=== PATIENT | male | born 1975 | race Caucasian/White ===

== ENCOUNTER 2016-10-02 10:13 | Observation (INO) | payer BC ==
[~2016-10-02] VITALS: Ht 190.5 cm; Wt 116.4 kg
[~2016-10-02 10:13] MED LIST: ENAL20TA PO; GEMF600T3 PO; HYG/25 PO; ONDA4TAB46 PO
[2016-10-02] MEDS ORDERED: SODIUM CHLORIDE 0.9% 1000ML 1,000 ML IV STA (10:31)
--- NOTE | 2016-10-02 10:42 | EMERGENCY ROOM VISIT NOTE ---
History Report prepared by Love: Dalton Hernandez Under the Supervision of: Dr. Hermelinda Casey D.O. First contact with patient: 10:19 Chief Complaint: HYPERTENSION Stated Complaint: ELEVATED BP-SENT BY 'S OFFICE History of Present Illness The patient is a 41 year old male who presents to the Emergency Room with complaints of persistent hypertension for the past several days. The patient states that his blood pressure normally runs a little high but has been even higher for several days. The patient has been on Enalapril for about one year. He saw his doctor two days ago and was prescribed chlorthalidone, which he started yesterday. The patient saw his primary doctor again today and was referred to the ED. The patient has had a waxing & waning headache for the past four days, which has been making it difficult to sleep. The headache is described as a pressure sensation, which is unlike any headache he has had before. The patient also described feeling off balance and having trouble focusing. He denies blurry vision, ringing in his ears, any focal weakness or numbness, room-spinning dizziness, nausea, changes in his urinary or bowel habits. He had right-sided chest pain intermittently two days ago that lasted about two hours in total, and he has not had any chest pain since then. He is not a smoker. He denies significant changes in his diet or salt intake. The patient states that hypertension does not normally run in his family. No recent trauma, no change in activity, no recent illness. States he is taking his medications as prescribed. Source of History: patient Onset: several days ago Position: other (cardiovascular) Quality: other (hypertension) Timing: other (persistent) Associated Symptoms: + headache, + chest pain, No nausea, No melena, No hematochezia, No diarrhea, No urinary symptoms, No weakness, No numbness Review of Systems See HPI for pertinent positives & negatives. A total of 10 systems reviewed and were otherwise negative. Past Medical & Surgical Medical Problems: (1) Asthma, Unspecified (2) Calculus Of Kidney (3) Depressive Disorder Nec (4) Diverticulitis Colon (W/O Ment Of Hemorrhage) (5) Migraine Unspecified W/O Intract Mgrn W/O Status Migrainosus (6) Pneumonia, Organism Nos Family History No pertinent family history Social History Smoking Status: Never Smoker Alcohol Use: none Marital Status: single Occupation Status: employed Current/Historical Medications Scheduled Clonidine HCl (Clonidine HCl), 0.2 MG PO BID Enalapril Maleate (Enalapril Maleate), 20 MG PO BID Hydrochlorothiazide (Hctz), 25 MG PO DAILY Allergies Coded Allergies: Tramadol (Verified Allergy, Unknown, HIVES, 04/02/16) Physical Exam Vital Signs Date Time Temp Pulse Resp B/P (MAP) Pulse Ox O2 Delivery O2 Flow Rate FiO2 10/02/16 16:38 89 17 95 10/02/16 16:32 167/111 10/02/16 16:08 85 17 96 10/02/16 16:03 166/116 10/02/16 16:02 85 18 164/118 95 10/02/16 15:52 163/109 10/02/16 15:42 175/131 10/02/16 15:32 178/117 10/02/16 15:28 91 95 10/02/16 15:22 179/129 10/02/16 15:12 171/119 10/02/16 15:02 162/103 10/02/16 14:58 83 97 10/02/16 14:53 85 96 10/02/16 14:52 164/109 10/02/16 14:48 84 97 10/02/16 14:43 83 96 10/02/16 14:42 167/108 10/02/16 14:38 84 96 10/02/16 14:33 83 97 10/02/16 14:32 160/112 10/02/16 14:28 84 96 10/02/16 14:23 89 97 10/02/16 14:18 83 15 94 10/02/16 14:13 84 13 94 10/02/16 14:12 162/114 10/02/16 14:08 83 15 93 10/02/16 14:03 83 16 94 10/02/16 14:02 162/115 10/02/16 13:58 83 19 95 10/02/16 13:53 82 17 96 10/02/16 13:52 165/117 10/02/16 13:48 84 14 96 10/02/16 13:43 84 17 95 10/02/16 13:42 174/126 10/02/16 13:38 86 18 167/120 95 10/02/16 13:33 86 20 97 10/02/16 13:32 242/157 10/02/16 13:23 87 16 96 10/02/16 13:22 209/147 10/02/16 13:13 84 14 97 10/02/16 13:12 205/135 10/02/16 13:05 194/130 10/02/16 13:03 89 16 96 10/02/16 13:02 212/146 10/02/16 12:53 90 15 95 10/02/16 12:43 90 17 95 10/02/16 12:33 91 16 96 10/02/16 12:32 202/141 10/02/16 12:23 93 18 94 10/02/16 12:14 190/134 10/02/16 12:13 97 21 190/134 95 10/02/16 12:09 95 10/02/16 12:08 96 22 95 10/02/16 12:03 93 16 95 10/02/16 12:01 209/141 10/02/16 11:58 93 14 94 10/02/16 11:53 95 17 94 10/02/16 11:48 96 21 95 10/02/16 11:43 95 19 94 10/02/16 11:38 94 17 96 10/02/16 11:36 178/127 10/02/16 10:15 36.7 107 18 204/126 96 Room Air Physical Exam GENERAL: alert, well appearing, well nourished, no distress, non-toxic EYE EXAM: normal conjunctiva, no papilledema on funduscopic exam, normal appearing vasculature OROPHARYNX: no exudate, no erythema, lips, buccal mucosa, and tongue normal and mucous membranes are moist NECK: supple, no nuchal rigidity, no adenopathy, non-tender LUNGS: Clear to auscultation. Normal chest wall mechanics HEART: no murmurs, S1 normal and S2 normal ABDOMEN: abdomen soft, non-tender, normo-active bowel sounds, no masses, no rebound or guarding. BACK: Back is symmetrical on inspection and there is no deformity, no midline tenderness, no CVA tenderness. SKIN: no rashes and no bruising UPPER EXTREMITIES: upper extremities are grossly normal. LOWER EXTREMITIES: No pitting edema. NEURO EXAM: Normal sensorium, cranial nerves II-XII grossly intact, normal speech, no gross weakness of arms, no gross weakness of legs. Gross sensation intact. Medical Decision & Procedures ER Provider Diagnostic Interpretation: Radiology results have been interpreted by the radiologist and reviewed by me. HEAD CT NONCONTRAST CT DOSE: 614.27 mGy.cm HISTORY: Headache. Hypertension. Dizziness. TECHNIQUE: Multiaxial CT images of the head were performed without the use of intravenous contrast. Automated exposure control was utilized for this study. Comparison: Head CT 08/17/2013. Findings: The paranasal sinuses and mastoid air cells are clear. The calvarium and skull base are intact. The ventricles and sulci are within normal limits. There is no mass, hematoma, midline shift, or acute infarct. Impression: No acute intracranial abnormality. Electronically signed by: Kurtis Joyner M.D. 10/02/2016 11:14 AM Dictated Date/Time: 10/02/2016 11:10 AM CHEST ONE VIEW PORTABLE CLINICAL HISTORY: Chest pain, dizziness, lightheadedness., Hypertension. COMPARISON STUDY: 04/02/2016 FINDINGS: The heart remains enlarged. There is persistent superior mediastinal soft tissue prominence. There is no failure. There is no focal pulmonary consolidation. There are no pleural effusions. There are postsurgical changes present within the cervical spine.[ IMPRESSION: 1. Stable mild superior mediastinal widening 2. Stable cardiomegaly 3. No acute findings. Electronically signed by: Smooth Ugalde M.D. 10/02/2016 11:07 AM Dictated Date/Time: 10/02/2016 11:04 AM Laboratory Results 10/02/16 10:40 Red Blood Count 4.48, Mean Corpuscular Volume 94.9, Mean Corpuscular Hemoglobin 33.5, Mean Corpuscular Hemoglobin Concent 35.3, Mean Platelet Volume 9.4, Neutrophils (%) (Auto) 62.0, Lymphocytes (%) (Auto) 30.2, Monocytes (%) (Auto) 6.4, Eosinophils (%) (Auto) 1.2, Basophils (%) (Auto) 0.1, Neutrophils # (Auto) 4.19, Lymphocytes # (Auto) 2.04, Monocytes # (Auto) 0.43, Eosinophils # (Auto) 0.08, Basophils # (Auto) 0.01 Test 10/02/16 10:40 White Blood Count 6.76 K/uL (4.8-10.8) Red Blood Count 4.48 M/uL (4.7-6.1) Hemoglobin 15.0 g/dL (14.0-18.0) Hematocrit 42.5 % (42-52) Mean Corpuscular Volume 94.9 fL (80-100) Mean Corpuscular Hemoglobin 33.5 pg (25-34) Mean Corpuscular Hemoglobin Concent 35.3 g/dl (32-36) Platelet Count 241 K/uL (130-400) Mean Platelet Volume 9.4 fL (7.4-10.4) Neutrophils (%) (Auto) 62.0 % Lymphocytes (%) (Auto) 30.2 % Monocytes (%) (Auto) 6.4 % Eosinophils (%) (Auto) 1.2 % Basophils (%) (Auto) 0.1 % Neutrophils # (Auto) 4.19 K/uL (1.4-6.5) Lymphocytes # (Auto) 2.04 K/uL (1.2-3.4) Monocytes # (Auto) 0.43 K/uL (0.11-0.59) Eosinophils # (Auto) 0.08 K/uL (0-0.5) Basophils # (Auto) 0.01 K/uL (0-0.2) RDW Standard Deviation 45.8 fL (36.4-46.3) RDW Coefficient of Variation 13.2 % (11.5-14.5) Immature Granulocyte % (Auto) 0.1 % Immature Granulocyte # (Auto) 0.01 K/uL (0.00-0.02) Total Bilirubin 0.5 mg/dl (0.2-1) Aspartate Amino Transf (AST/SGOT) 15 U/L (15-37) Alanine Aminotransferase (ALT/SGPT) 30 U/L (12-78) Alkaline Phosphatase 82 U/L (45-117) Troponin I < 0.015 ng/ml (0-0.045) Total Protein 8.5 gm/dl (6.4-8.2) Albumin 4.8 gm/dl (3.4-5.0) Globulin 3.7 gm/dl (2.5-4.0) Albumin/Globulin Ratio 1.3 (0.9-2) Thyroid Stimulating Hormone (TSH) 1.590 uIu/ml (0.300-4.500) Laboratory results per my review. Medications Administered Medications (Trade) Dose Ordered Sig/Corie Route Start Time Stop Time Status Last Admin Dose Admin Sodium Chloride 1,000 ml @ 999 mls/hr Q1H1M STAT IV 10/02/16 10:31 10/02/16 11:31 DC 10/02/16 10:31 999 MLS/HR Acetaminophen (Tylenol Tab) 1,000 mg NOW STAT PO 10/02/16 12:26 10/02/16 12:27 DC 10/02/16 13:04 1,000 MG Labetalol HCl (Normodyne IV) 10 mg NOW STAT IV 10/02/16 12:26 10/02/16 12:27 DC 10/02/16 13:00 10 MG Labetalol HCl (Normodyne IV) 10 mg NOW STAT IV 10/02/16 13:39 10/02/16 13:40 DC 10/02/16 13:47 10 MG Ketorolac Tromethamine (Toradol Inj) 30 mg NOW STAT IV 10/02/16 13:39 10/02/16 13:40 DC 10/02/16 13:46 30 MG Hydralazine HCl (HydrALAZINE INJ) 5 mg NOW STAT IV. 10/02/16 15:36 10/02/16 15:38 DC 10/02/16 16:04 5 MG Fentanyl Citrate (Fentanyl Inj) 50 mcg NOW STAT IV 10/02/16 15:36 10/02/16 15:38 DC 10/02/16 16:01 50 MCG Ketorolac Tromethamine (Toradol Inj) 30 mg NOW STAT IV 10/02/16 16:37 10/02/16 16:48 DC 10/02/16 17:16 30 MG ECG Indication: other (hypertension) Rate (beats per minute): 103 Rhythm: sinus tachycardia Findings: no acute ischemic change, other (normal axis, normal intervals) ED Course 1025: The patient was evaluated in room C9. A complete history and physical exam was performed. 1031: NSS 1000 ml @ 999 mls/hr. 1226: Labetalol HCl 10 mg IV, Tylenol 1000 mg PO. 1230: The patient's pressure is going back up, and he still has a headache. I updated him on the results. 1335: The patient has still has a headache and is still hypertensive, but is not quite as bad as he was before. 1339: Toradol 30 mg IV, Labetalol HCl 10 mg IV. 1517: Checked on the patient. 1536: Fentanyl 50 mcg IV, Hydralazine HCl 5 mg IV. 1605: The patient still has a headache but is getting better. 1615: Discussed the case with Dr. Butts [facility] Hospitalist. The patient will be evaluated. Medical Decision Differential diagnosis: Etiologies such as benign hypertension, hypertensive emergency, cardiovascular pathology, pheochromocytoma, electrolyte abnormality, renal disease, endorgan damage, as well as others were entertained. Blood pressure screening: Patient was found to have an elevated blood pressure and was referred to their primary doctor for recheck and further treatment. Medication Reconciliation: I attest that I have personally reviewed the patient' s current medication list. Concern given persistence of patient's hypertension, and several IV medications required to help to lower it. Headache not improved following improvement in blood pressure and so additional pain medications used which did help. No evidence of any end organ damage. Doubt CVA, dissection, tamponade, ACS, renal failure. Patient improved here but admitted for continuing monitoring and control of blood pressure. Discussed with patient long-term complications of uncontrolled high blood pressure, and patient agreeable with admission. Consults Time Called: 161 Consulting Physician: Dr. Butts [facility] Hospitalist. Returned Call: 1615 The patient will be evaluated. Impression Primary Impression: Hypertensive urgency Scribe Attestation The scribe's documentation has been prepared under my direction and personally reviewed by me in its entirety. I confirm that the note above accurately reflects all work, treatment, procedures, and medical decision making performed by me. Departure Information Dispostion Being Evaluated By Hospitalist Prescriptions Clonidine HCl (Clonidine HCl) 0.1 Mg Tab 0.2 MG PO BID for 30 Days, #120 TAB Prov: Lissette Mercado .ADE 10/03/16 Hydrochlorothiazide (HCTZ) 25 Mg Tab 25 MG PO DAILY for 30 Days, #30 TABS Prov: Lissette Mercado PA-C 10/03/16 Enalapril Maleate (ENALAPRIL MALEATE) 20 Mg Tab 20 MG PO BID for 30 Days, #60 TAB Prov: Lissette Mercado PA-C 10/03/16 Referrals RV. Alvarez MD (PCP) Patient Instructions [facility]
[2016-10-02 10:53] LABS: BASO % 0.1 %; BASO ABS # 0.01 K/uL (0-0.2); COMPLETE YES; EOS % 1.2 %; HEMATOCRIT 42.5 % (42-52); IG% 0.1 %; LYMPH % 30.2 %; LYMPH ABS # 2.04 K/uL (1.2-3.4); MEAN CELL VOLUME 94.9 fL (80-100); MEAN CORPUSCULAR HEMOGLOBIN 33.5 pg (25-34); MEAN CORPUSCULAR HGB CONC 35.3 g/dl (32-36); MEAN PLATELET VOLUME 9.4 fL (7.4-10.4); MONO % 6.4 %; PLATELET COUNT 241 K/uL (130-400); RED BLOOD COUNT 4.48 M/uL (4.7-6.1); WHITE BLOOD COUNT 6.76 K/uL (4.8-10.8)
[2016-10-02] MEDS ORDERED: HYDR25TA4 PO (10:57)
--- NOTE | 2016-10-02 11:08 | DIAGNOSTIC IMAGING REPORT ---
CHEST ONE VIEW PORTABLE CLINICAL HISTORY: Chest pain, dizziness, lightheadedness., Hypertension. COMPARISON STUDY: 04/02/2016 FINDINGS: The heart remains enlarged. There is persistent superior mediastinal soft tissue prominence. There is no failure. There is no focal pulmonary consolidation. There are no pleural effusions. There are postsurgical changes present within the cervical spine.[ IMPRESSION: 1. Stable mild superior mediastinal widening 2. Stable cardiomegaly 3. No acute findings. Electronically signed by: Smooth Ugalde M.D. 10/02/2016 11:07 AM Dictated Date/Time: 10/02/2016 11:04 AM
--- NOTE | 2016-10-02 11:16 | DIAGNOSTIC IMAGING REPORT ---
HEAD CT NONCONTRAST CT DOSE: 614.27 mGy.cm HISTORY: Headache. Hypertension. Dizziness. TECHNIQUE: Multiaxial CT images of the head were performed without the use of intravenous contrast. Automated exposure control was utilized for this study. Comparison: Head CT 08/17/2013. Findings: The paranasal sinuses and mastoid air cells are clear. The calvarium and skull base are intact. The ventricles and sulci are within normal limits. There is no mass, hematoma, midline shift, or acute infarct. Impression: No acute intracranial abnormality. Electronically signed by: Kurtis Joyner M.D. 10/02/2016 11:14 AM Dictated Date/Time: 10/02/2016 11:10 AM
[2016-10-02 11:49] LABS: ALB/GLOB RATIO 1.3 (0.9-2); ALKALINE PHOSPHATASE 82 U/L (45-117); ALT/SGPT 30 U/L (12-78); BLOOD UREA NITROGEN 16 mg/dl (7-18); BUN/CREATININE RATIO 16.4 (10-20); CALCIUM 8.6 mg/dl (8.5-10.1); CARBON DIOXIDE 27 mmol/L (21-32); CHLORIDE 103 mmol/L (98-107); POTASSIUM 3.8 mmol/L (3.5-5.1); SODIUM 137 mmol/L (136-145)
[2016-10-02 11:57] LABS: GLUCOSE 99 mg/dl (70-99)
[2016-10-02 12:01] LABS: AST/SGOT 15 U/L (15-37)
[2016-10-02] MEDS ORDERED: ACETAMINOPHEN 500 MG TAB PO STA (12:26)
[2016-10-02] MEDS ORDERED: LABETALOL HCL IV 5 MG/ML 20ML IV STA ×2 (12:26→13:39)
[2016-10-02] MEDS ORDERED: KETOROLAC TROMETHAMINE 30 MG/ML VIAL IV STA ×2 (13:39→16:37)
[2016-10-02] MEDS ORDERED: FENTANYL CITRATE INJ 50 MCG/1 ML 2 ML VIAL IV STA (15:36)
[2016-10-02] MEDS ORDERED: HydrALAZINE HCL 20 MG/ML VIAL IV. STA (15:36)
[2016-10-02] MEDS ORDERED: CLONIDINE HCL 0.1 MG TAB PO ONE ×2 (16:52→17:00)
--- NOTE | 2016-10-02 16:52 | History and Physical ---
History & Physical Date & Time of Service: Oct 02, 2016 at 16:42 Chief Complaint: Elevated Bp-Sent By 's Office Primary Care Physician: RV. Alvarez MD History of Present Illness Source: patient, clinic records, hospital records This patient is a pleasant 41-year-old male that was sent emergency department for evaluation by his primary care provider this afternoon for evaluation of hypertensive urgency. The patient was initially seen in the office on September 30. He was given a prescription for a diuretic to take in addition to his typical dose of enalapril 20 mg twice daily. He was seen in the office today for a blood pressure recheck. He does complain of a headache constantly over the last 4 days. It has not improved. Upon further discussion, the patient admits that he went to pickup driver the prescription and it was not ready; therefore, he has been noncompliant with the addition of the blood pressure medication. He denies any additional symptoms such as chest pain or pressure. No shortness of breath, dizziness or heart palpitations. No changes in vision. He denies any recent changes in his diet. No other medication changes noted. He reports continuing to take the enalapril 20 g twice daily as prescribed. Past Medical/Surgical History Hypertension Hyperlipidemia Family History No pertinent family history He reports that both of his parents are alive with no medical problems. Social History Smoking Status: Never Smoker Alcohol Use: none Marital Status: single Housing status: lives alone, other Occupational Status: employed Immunizations History of Influenza Vaccine: No History of Tetanus Vaccine?: No History of Pneumococcal: No History of Hepatitis B Vaccine: No Multi-Drug Resistant Organisms History of MDRO: No Allergies Coded Allergies: Tramadol (Verified Allergy, Unknown, HIVES, 04/02/16) Home Medications Scheduled Enalapril Maleate (Enalapril Maleate), 20 MG PO BID Hydrochlorothiazide (Hctz), 25 MG PO DAILY Review of Systems 10 system review performed and negative unless noted in HPI or below Physical Exam Vital Signs Date Time Temp Pulse Resp B/P (MAP) Pulse Ox O2 Delivery O2 Flow Rate FiO2 10/02/16 16:03 166/116 10/02/16 16:02 85 18 164/118 95 10/02/16 15:52 163/109 10/02/16 15:42 175/131 6/2/17 15:32 178/117 10/02/16 15:28 91 95 10/02/16 15:22 179/129 10/02/16 15:12 171/119 10/02/16 15:02 162/103 10/02/16 14:58 83 97 10/02/16 14:53 85 96 10/02/16 14:52 164/109 10/02/16 14:48 84 97 10/02/16 14:43 83 96 10/02/16 14:42 167/108 10/02/16 14:38 84 96 10/02/16 14:33 83 97 10/02/16 14:32 160/112 10/02/16 14:28 84 96 10/02/16 14:23 89 97 10/02/16 14:18 83 15 94 10/02/16 14:13 84 13 94 10/02/16 14:12 162/114 10/02/16 14:08 83 15 93 10/02/16 14:03 83 16 94 10/02/16 14:02 162/115 10/02/16 13:58 83 19 95 10/02/16 13:53 82 17 96 10/02/16 13:52 165/117 10/02/16 13:48 84 14 96 10/02/16 13:43 84 17 95 10/02/16 13:42 174/126 10/02/16 13:38 86 18 167/120 95 10/02/16 13:33 86 20 97 10/02/16 13:32 242/157 10/02/16 13:23 87 16 96 10/02/16 13:22 209/147 10/02/16 13:13 84 14 97 10/02/16 13:12 205/135 10/02/16 13:05 194/130 10/02/16 13:03 89 16 96 10/02/16 13:02 212/146 10/02/16 12:53 90 15 95 10/02/16 12:43 90 17 95 10/02/16 12:33 91 16 96 10/02/16 12:32 202/141 10/02/16 12:23 93 18 94 10/02/16 12:14 190/134 10/02/16 12:13 97 21 190/134 95 10/02/16 12:09 95 10/02/16 12:08 96 22 95 10/02/16 12:03 93 16 95 10/02/16 12:01 209/141 10/02/16 11:58 93 14 94 10/02/16 11:53 95 17 94 10/02/16 11:48 96 21 95 10/02/16 11:43 95 19 94 10/02/16 11:38 94 17 96 10/02/16 11:36 178/127 10/02/16 10:15 36.7 107 18 204/126 96 Room Air General Appearance: + mild distress Head: normocephalic Eyes: PERRL, EOMI Neck: no JVD Respiratory/Chest: lungs clear Cardiovascular: regular rate, rhythm, no murmur Abdomen/GI: normal bowel sounds, non tender, soft Extremities/Musculoskelatal: no calf tenderness, no pedal edema Neurologic/Psych: no motor/sensory deficits, oriented x 3 Skin: warm/dry Diagnostics Laboratory Results Results Past 24 Hours Test 10/02/16 10:40 Range/Units White Blood Count 6.76 4.8-10.8 K/uL Red Blood Count 4.48 4.7-6.1 M/uL Hemoglobin 15.0 14.0-18.0 g/dL Hematocrit 42.5 42-52 % Mean Corpuscular Volume 94.9 80-100 fL Mean Corpuscular Hemoglobin 33.5 25-34 pg Mean Corpuscular Hemoglobin Concent 35.3 32-36 g/dl Platelet Count 241 130-400 K/uL Mean Platelet Volume 9.4 7.4-10.4 fL Neutrophils (%) (Auto) 62.0 % Lymphocytes (%) (Auto) 30.2 % Monocytes (%) (Auto) 6.4 % Eosinophils (%) (Auto) 1.2 % Basophils (%) (Auto) 0.1 % Neutrophils # (Auto) 4.19 1.4-6.5 K/uL Lymphocytes # (Auto) 2.04 1.2-3.4 K/uL Monocytes # (Auto) 0.43 0.11-0.59 K/uL Eosinophils # (Auto) 0.08 0-0.5 K/uL Basophils # (Auto) 0.01 0-0.2 K/uL RDW Standard Deviation 45.8 36.4-46.3 fL RDW Coefficient of Variation 13.2 11.5-14.5 % Immature Granulocyte % (Auto) 0.1 % Immature Granulocyte # (Auto) 0.01 0.00-0.02 K/uL Sodium Level 137 136-145 mmol/L Potassium Level 3.8 3.5-5.1 mmol/L Chloride Level 103 98-107 mmol/L Carbon Dioxide Level 27 21-32 mmol/L Anion Gap 7.0 3-11 mmol/L Blood Urea Nitrogen 16 7-18 mg/dl Creatinine 1.00 0.60-1.40 mg/dl Est Creatinine Clear Calc Drug Dose 136.0 ml/min Estimated GFR () 106.4 Estimated GFR (Non- 91.8 BUN/Creatinine Ratio 16.4 10-20 Random Glucose 99 70-99 mg/dl Calcium Level 8.6 8.5-10.1 mg/dl Total Bilirubin 0.5 0.2-1 mg/dl Aspartate Amino Transf (AST/SGOT) 15 15-37 U/L Alanine Aminotransferase (ALT/SGPT) 30 12-78 U/L Alkaline Phosphatase 82 45-117 U/L Troponin I < 0.015 0-0.045 ng/ml Total Protein 8.5 6.4-8.2 gm/dl Albumin 4.8 3.4-5.0 gm/dl Globulin 3.7 2.5-4.0 gm/dl Albumin/Globulin Ratio 1.3 0.9-2 Thyroid Stimulating Hormone (TSH) 1.590 0.300-4.500 uIu/ml Diagnostic Radiology Patient Name: WES STEVENS Vic Unit Number: [id number] Dictated: 10/02/161109 Transcribed: 10/02/161109 [facility] Printed Date/Time: [~ rep prt dt]/[~ rep prt tm] [~ rep ct labl] - [~ rep ct ivnm] [facility] [place] [address] Dictated: 10/02/161109 Transcribed: 10/02/161109 [facility] Printed Date/Time: [~ rep prt dt]/[~ rep prt tm] [~ rep ct labl] - [~ rep ct ivnm] Patient: WES STEVENS Vic Address1: [address] Rec: [id number] Address2: Acct ID: [id number] [facility]: [facility] [address] Date: 1975 Sex: M Room/Bed: Ref Phy: RV. Alvarez MD SC: MATEO Att Phy: Report #: [id number] Daniela Phy: RV. Alvarez MD Test: HWO Admit Phy: Tactical Deception Plans Officer: DARLENE Interpreting Phy: Kurtis Joyner MD Diagnosis: ELEVATED BP-SENT BY 'S OFFICE Ordering Phy: Hermelinda Casey DO Service Date: 10/02/16 Admit Date: 10/02/16 MNE: PWRSCRIBE CONF: DICTATED BY: Kurtis Joyner M.D.]] CC: RV. Alvarez MD Pheasant, Karen S., Endcc: [~ rep ct add3]] HEAD CT NONCONTRAST CT DOSE: 614.27 mGy.cm HISTORY: Headache. Hypertension. Dizziness. TECHNIQUE: Multiaxial CT images of the head were performed without the use of intravenous contrast. Automated exposure control was utilized for this study. Comparison: Head CT 08/17/2013. Findings: The paranasal sinuses and mastoid air cells are clear. The calvarium and skull base are intact. The ventricles and sulci are within normal limits. There is no mass, hematoma, midline shift, or acute infarct. Impression: No acute intracranial abnormality. Electronically signed by: Kurtis Joyner M.D. 10/02/2016 11:14 AM Dictated Date/Time: 10/02/2016 11:10 AM The status of this report is Signed. Draft = Not yet reviewed or approved by Radiologist. Signed = Reviewed and approved by Radiologist. <AttendingPhy></AttendingPhy> <FamilyPhy>RV. Alvarez MD</ FamilyPhy> <PrimaryPhy>RV. Alvarez MD</PrimaryPhy> <UnitNumber> [id number]</UnitNumber> <VisitNumber>[id number]</VisitNumber> <PatientName> WES STEVENS</PatientName> <DateOfBirth>1975</DateOfBirth> <Location> C.[facility]</Location> <ServiceDate>10/02/16</ServiceDate> <MNE>ESINDI</MNE> < OrderingPhy>Hermelinda Casey DO</OrderingPhy> <OrderingPhyMNE>f rep ord dr adams< /OrderingPhyMNE> <DictatingPhyMNE>f rep dict dr adams</DictatingPhyMNE> <CCListMNE >f rep ct mne</CCListMNE> <AdmittingPhyMNE>f pt admit dr adams</AdmittingPhyMNE> < AttendingPhyMNE>f pt attend dr adams</AttendingPhyMNE> <ConsultingPhyMNE>f pt consult dr adams</ConsultingPhyMNE> <FamilyPhyMNE>f pt fam dr adams</FamilyPhyMNE> <OtherPhyMNE>f pt other dr adams</OtherPhyMNE> < PrimaryPhyMNE>f pt prim care dr adams</PrimaryPhyMNE> <ReferringPhyMNE>f pt referring dr adams</ReferringPhyMNE> Patient: WES STEVENS Address1: [address] Rec: [id number] Address2: [facility] ID: [id number] [facility] Zip: [place] [address] Date: 1975 Sex: M Room/Bed: Ref Phy: RV. Alvarez MD SC: C.EDC Att Phy: Report #: [id number] Daniela Phy: RV. Alvarez MD Test: CXR1P Admit Phy: Tactical Deception Plans Officer: PAMELA Interpreting Phy: Smooth Ugalde M.D. Diagnosis: ELEVATED BP-SENT BY 'S OFFICE Ordering Phy: Hermelinda Casey DO Service Date: 10/02/16 Admit Date: 10/02/16 MNE: PWRSCRIBE CONF: DICTATED BY: Smooth Ugalde M.D.]] CC: RV. Antonio, Hermelinda Vo, Endcc: [~ rep ct add3]] CHEST ONE VIEW PORTABLE CLINICAL HISTORY: Chest pain, dizziness, lightheadedness., Hypertension. COMPARISON STUDY: 04/02/2016 FINDINGS: The heart remains enlarged. There is persistent superior mediastinal soft tissue prominence. There is no failure. There is no focal pulmonary consolidation. There are no pleural effusions. There are postsurgical changes present within the cervical spine.[ IMPRESSION: 1. Stable mild superior mediastinal widening 2. Stable cardiomegaly 3. No acute findings. Electronically signed by: Smooth Ugalde M.D. 10/02/2016 11:07 AM Dictated Date/Time: 10/02/2016 11:04 AM The status of this report is Signed. Draft = Not yet reviewed or approved by Radiologist. Signed = Reviewed and approved by Radiologist. <AttendingPhy></AttendingPhy> <FamilyPhy>RV. Alvarez MD</ FamilyPhy> <PrimaryPhy>RV. Alvarez MD</PrimaryPhy> <UnitNumber> [id number]</UnitNumber> <VisitNumber>[id number]</VisitNumber> <PatientName> WES STEVENS</PatientName> <DateOfBirth>1975</DateOfBirth> <Location> [facility]</Location> <ServiceDate>10/02/16</ServiceDate> <MNE>ESINDI</MNE> < OrderingPhy>Hermelinda Casey DO</OrderingPhy> <OrderingPhyMNE>f rep ord dr adams< /OrderingPhyMNE> <DictatingPhyMNE>f rep dict dr adams</DictatingPhyMNE> <CCListMNE >f rep ct mne</CCListMNE> <AdmittingPhyMNE>f pt admit dr adams</AdmittingPhyMNE> < AttendingPhyMNE>f pt attend dr adams</AttendingPhyMNE> <ConsultingPhyMNE>f pt consult dr adams</ConsultingPhyMNE> <FamilyPhyMNE>f pt fam dr adams</FamilyPhyMNE> <OtherPhyMNE>f pt other dr adams</OtherPhyMNE> < PrimaryPhyMNE>f pt prim care dr adams</PrimaryPhyMNE> <ReferringPhyMNE>f pt EKG Sinus tachycardia Rate 103 bpm No ischemic changes noted Impression Assessment and Plan 41-year-old male presents emergency department with complaints of a headache, found to be hypertensive in his PCPs office today. Workup in the emergency department is unremarkable. Hypertensive urgency -Observe in telemetry -continue Enalapril 20 mg po BID -I will start clonidine 0.2 mg daily first dose now -Hydralazine 10 mg IV q 6 hr PRN -trend cardiac enzymes -follow PRP Hyperlipidemia -continue gemfibrozil as prescribed DVT prophylaxis -ambulation -TEDS, SCDs CODE STATUS -LEVEL I FULL CODE I agree with PA assessment and plan and have seen and examined pt myself Labs vitals and imaging reviewed Hypertensive emergency Cont home meds enalipril and start on chlorthalidone in addition to clonidine and hydralazine IV PRN [place] controlled Obs overnight No end organ damage Pt is FULL CODE Level of Care Telemetry Resuscitation Status FULL RESUSCITATION VTE Prophylaxis Risk Level: Low Given or contraindicated: Bert Stockings, SCD's
[2016-10-02] MEDS ORDERED: CLONIDINE HCL 0.1 MG TAB PO SCH (17:00)
[2016-10-02] MEDS ORDERED: ONDANSETRON INJ 2 MG/ML 2 ML VIAL IV PRN (17:00)
[2016-10-02] MEDS ORDERED: ACETAMINOPHEN 325 MG TAB PO PRN (17:00)
[2016-10-02] MEDS ORDERED: HydrALAZINE HCL 20 MG/ML VIAL IV. PRN (17:00)
[2016-10-02] MEDS ORDERED: IV FLUIDS COMPLETED PRN (17:15)
[2016-10-02 20:24] VITALS: BP 132/87; PULSE 84; TEMP 36.7; O2SAT 95; Ht 190.5 cm; Wt 116.4 kg
[2016-10-02] MEDS: ENALAPRIL MALEATE 10 MG TAB PO SCH ×2 (21:40→22:06)
[2016-10-02] MEDS ORDERED: NURSING VERBAL MED ORDER ONE ×2 (22:15→22:45)
[2016-10-02] MEDS ORDERED: HYDROCODONE/ACETAMOPHEN 5/325MG TAB PO PRN (22:45)
[2016-10-02 23:26] VITALS: BP 144/83; PULSE 84; TEMP 36.5; O2SAT 95
[2016-10-03 03:50] VITALS: BP 137/87; PULSE 82; TEMP 36.5; O2SAT 95
[2016-10-03] MEDS: MoRPHine SULFATE 2 MG/ML CARP IV PRN ×2 (03:50→07:34)
[2016-10-03 07:40] VITALS: BP 173/112; PULSE 82; TEMP 36.5; O2SAT 97
[2016-10-03 08:49] LABS: BUN/CREATININE RATIO 22.5 (10-20); CALCIUM 8.6 mg/dl (8.5-10.1); POTASSIUM 3.6 mmol/L (3.5-5.1)
[2016-10-03] MEDS ORDERED: HYDROCHLOROTHIAZIDE 25 MG TAB PO SCH (09:00)
[2016-10-03] MEDS ORDERED: ENALAPRIL MALEATE 10 MG TAB PO SCH (09:00)
[2016-10-03] MEDS ORDERED: CLONIDINE HCL 0.1 MG TAB PO SCH ×2 (09:00)
[2016-10-03] MEDS ORDERED: ENAL20TA PO (09:23)
[2016-10-03] MEDS ORDERED: HYDR25TA4 PO (09:23)
[2016-10-03] MEDS ORDERED: CTP1 PO (09:23)
--- NOTE | 2016-10-03 09:30 | Discharge Instructions ---
Discharge Instructions Date of Service Oct 03, 2016. Admission Reason for Admission: Hypertensive Urgency Discharge Discharge Diagnosis / Problem: Hypertensive urgency Discharge Goals Goal(s): Decrease discomfort, Improve disease control, Learn about illness, Diagnostic testing, Therapeutic intervention, Prevent Disease Progression Activity Recommendations Activity Limitations: resume your previous activity . Instructions / Follow-Up Instructions / Follow-Up Blood pressure medications: 1. Clonidine 0.2 mg by mouth twice per day 2. Hydrochlorothiazide 25 mg by mouth once daily 3. Enalapril 20 mg by mouth once daily All prescriptions have been sent to you preferred pharmacy- please pick these prescriptions up directly after discharge from the hospital Resume all other medications as prescribed to you Please log your blood pressures 1-2 times per day. At your next follow-up appointment, take this log. This will help your PCP further manage/treat your blood pressure You may take Tylenol 650 mg by mouth every 4 hours as needed for headache pain. Do NOT exceed more than 4000 mg of Tylenol in 24 hours It is important you take your medications to prevent any future hospitalizations due to high blood pressure Please follow-up with your PCP within 5-7 days Please follow-up/keep all of your subspecialty appointments Current Hospital Diet Patient's current hospital diet: AHA Diet (Heart Healthy), Low Sodium Diet (2gm Na) Discharge Diet Recommended Diet: AHA Diet (Heart Healthy), Low Sodium Diet (2gm Na) Pending Studies Studies pending at discharge: no Laboratory Results Last 24 Hours Test 10/02/16 10:40 10/03/16 07:14 White Blood Count 6.76 K/uL Red Blood Count 4.48 M/uL Hemoglobin 15.0 g/dL Hematocrit 42.5 % Mean Corpuscular Volume 94.9 fL Mean Corpuscular Hemoglobin 33.5 pg Mean Corpuscular Hemoglobin Concent 35.3 g/dl Platelet Count 241 K/uL Mean Platelet Volume 9.4 fL Neutrophils (%) (Auto) 62.0 % Lymphocytes (%) (Auto) 30.2 % Monocytes (%) (Auto) 6.4 % Eosinophils (%) (Auto) 1.2 % Basophils (%) (Auto) 0.1 % Neutrophils # (Auto) 4.19 K/uL Lymphocytes # (Auto) 2.04 K/uL Monocytes # (Auto) 0.43 K/uL Eosinophils # (Auto) 0.08 K/uL Basophils # (Auto) 0.01 K/uL RDW Standard Deviation 45.8 fL RDW Coefficient of Variation 13.2 % Immature Granulocyte % (Auto) 0.1 % Immature Granulocyte # (Auto) 0.01 K/uL Sodium Level 137 mmol/L 138 mmol/L Potassium Level 3.8 mmol/L 3.6 mmol/L Chloride Level 103 mmol/L 104 mmol/L Carbon Dioxide Level 27 mmol/L 26 mmol/L Anion Gap 7.0 mmol/L 8.0 mmol/L Blood Urea Nitrogen 16 mg/dl 23 mg/dl Creatinine 1.00 mg/dl 1.00 mg/dl Est Creatinine Clear Calc Drug Dose 136.0 ml/min 131.0 ml/min Estimated GFR () 106.4 106.4 Estimated GFR (Non- 91.8 91.8 BUN/Creatinine Ratio 16.4 22.5 Random Glucose 99 mg/dl 105 mg/dl Calcium Level 8.6 mg/dl 8.6 mg/dl Total Bilirubin 0.5 mg/dl Aspartate Amino Transf (AST/SGOT) 15 U/L Alanine Aminotransferase (ALT/SGPT) 30 U/L Alkaline Phosphatase 82 U/L Troponin I < 0.015 ng/ml Total Protein 8.5 gm/dl Albumin 4.8 gm/dl Globulin 3.7 gm/dl Albumin/Globulin Ratio 1.3 Thyroid Stimulating Hormone (TSH) 1.590 uIu/ml Medical Emergencies . Who to Call and When: Medical Emergencies: If at any time you feel your situation is an emergency, please call 911 immediately. . Non-Emergent Contact Non-Emergency issues call your: Primary Care Provider . . "Provider Documentation" section prepared by Lissette Mercado. . VTE Core Measure Inpt VTE Proph given/why not?: Bert Carrillo, SCD's
--- NOTE | 2016-10-03 09:41 | Discharge Summary ---
Discharge Summary Date of Service Oct 03, 2016. (Lissette Mercado PA-C) Discharge Summary Admission Date: Oct 02, 2016 at 16:57 Discharge Date: Oct 03, 2016 Discharge Disposition: Home Principal Diagnosis: Hypertensive urgency Problems/Secondary Diagnoses: HTN Hyperlipidemia Immunizations: Have You Had Influenza Vaccine: No History of Tetanus Vaccine?: No History of Pneumococcal: No History of Hepatitis B Vaccine: No Procedures: HEAD CT NONCONTRAST CT DOSE: 614.27 mGy.cm HISTORY: Headache. Hypertension. Dizziness. TECHNIQUE: Multiaxial CT images of the head were performed without the use of intravenous contrast. Automated exposure control was utilized for this study. Comparison: Head CT 08/17/2013. Findings: The paranasal sinuses and mastoid air cells are clear. The calvarium and skull base are intact. The ventricles and sulci are within normal limits. There is no mass, hematoma, midline shift, or acute infarct. Impression: No acute intracranial abnormality. Electronically signed by: Kurtis Joyner M.D. 10/02/2016 11:14 AM Dictated Date/Time: 10/02/2016 11:10 AM The status of this report is Signed. Draft = Not yet reviewed or approved by Radiologist. Signed = Reviewed and approved by Radiologist. CHEST ONE VIEW PORTABLE CLINICAL HISTORY: Chest pain, dizziness, lightheadedness., Hypertension. COMPARISON STUDY: 04/02/2016 FINDINGS: The heart remains enlarged. There is persistent superior mediastinal soft tissue prominence. There is no failure. There is no focal pulmonary consolidation. There are no pleural effusions. There are postsurgical changes present within the cervical spine.[ IMPRESSION: 1. Stable mild superior mediastinal widening 2. Stable cardiomegaly 3. No acute findings. Electronically signed by: Smooth Ugalde M.D. 10/02/2016 11:07 AM Dictated Date/Time: 10/02/2016 11:04 AM The status of this report is Signed. Draft = Not yet reviewed or approved by Radiologist. Signed = Reviewed and approved by Radiologist. (Lissette Mercado PA-C) Medication Reconciliation New Medications: Clonidine HCl (Clonidine HCl) 0.1 Mg Tab 0.2 MG PO BID for 30 Days, #120 TAB Continued Medications: Enalapril Maleate (Enalapril Maleate) 20 Mg Tab 20 MG PO BID for 30 Days, #60 TAB (This prescription has been renewed) Hydrochlorothiazide (Hctz) 25 Mg Tab 25 MG PO DAILY for 30 Days, #30 TABS (This prescription has been renewed) Referrals At Discharge Follow up Referrals: Physician Referral - Within 1 Week with RV. Alvarez MD Discharge Exam Review of Systems: Constitutional: No fever, No chills, No sweats, No weakness, No fatigue Eyes: No worsening of vision, No diplopia Respiratory: No cough, No shortness of breath, No hemoptysis Cardiovascular: No chest pain, No orthopnea, No PND, No edema Abdomen: No pain, No nausea, No vomiting, No diarrhea, No constipation Musculoskeletal: No joint pain, No muscle pain, No swelling, No calf pain Genitourinary - Male: No hematuria, No dysuria Neurologic: + problem reported (headache- improving ), No weakness, No numbness/tingling Psychiatric: No depression symptoms, No anxiety Endocrine: No fatigue Hematologic / Lymphatic: No abnormal bleeding/bruising Integumentary: No rash, No itch, No new/changing skin lesions Physical Exam: General Appearance: no apparent distress, + obese Eyes: normal inspection, PERRL ENT: hearing grossly normal Neck: supple Respiratory/Chest: lungs clear, no respiratory distress, no accessory muscle use Cardiovascular: regular rate, rhythm Abdomen / GI: normal bowel sounds, non tender, soft Extremities: no calf tenderness, no pedal edema Neurologic/Psychiatric: alert, normal mood/affect, oriented x 3 Skin: normal color, warm/dry, no rash (Lissette Mercado, PA-C) Hospital Course HPI on admission: This patient is a pleasant 41-year-old male that was sent emergency department for evaluation by his primary care provider this afternoon for evaluation of hypertensive urgency. The patient was initially seen in the office on September 30. He was given a prescription for a diuretic to take in addition to his typical dose of enalapril 20 mg twice daily. He was seen in the office today for a blood pressure recheck. He does complain of a headache constantly over the last 4 days. It has not improved. 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 He denies any additional symptoms such as chest pain or pressure. No shortness of breath, dizziness or heart palpitations. No changes in vision. He denies any recent changes in his diet. No other medication changes noted. He reports continuing to take the enalapril 20 g twice daily as prescribed. Workup in the emergency department is unremarkable. Hypertensive urgency- RESOLVED: - Observe in telemetry- no acute events - Cardiac enzymes- negative - Continue Enalapril 20 mg daily and HCTZ 25 mg daily - Start Clonidine 0.2 mg BID - Hydralazine 10 mg IV q 6 hr PRN - PRP followed Headache, likely secondary to HTN urgency- IMPROVING: - Tylenol and [place] PRN Hyperlipidemia: Continue Gemfibrozil as prescribed DVT prophylaxis: Ambulation, TEDS, SCDs CODE STATUS: LEVEL I FULL CODE Dispo: Discharge to home - Referral placed for follow-up w/ PCP in 5-7 days Total Time Spent: Greater than 30 minutes This includes examination of the patient, discharge planning, medication reconciliation, and communication with other providers. (Lissette Mercado, PA-C) I personally examined pt and verified all godfrey points w Bon Mercado PA-C feeling better wants to go home is going to take meds discussed lifestyle changes for benefitting bp control as well ROS otherwise negative except for as above vitals noted nad breathing unlabored htn urgency - mild - headache only. no neuro findings no cardiac sx. improved. stable for home- meds as above, close f/u. (Pineda Valerio D.O.) Discharge Instructions Please refer to the electronic Patient Visit Report (Discharge Instructions) for additional information. (Lissette Mercado, BALJEETC) Follow-Up Please follow-up with your PCP within 5-7 days Please follow-up/keep all of your subspecialty appointments (Lissette Mercado PA-C) Additional Copies To RV. Alvarez MD
[2016-10-03 11:04] VITALS: BP 119/73; PULSE 79; TEMP 36.6; O2SAT 96
[2016-10-03 12:43] VITALS: BP 119/73; PULSE 79; TEMP 36.6; O2SAT 96
== END 2016-10-03 13:33 | disposition home or self-care (01) ==
LOC: C.EDB 10:14 → C.2T 16:57
PROVIDERS: ADMIT Hospitalist; ATTEND Family Medicine
DX: I10 Essential (primary) hypertension (principal); E78.5 Hyperlipidemia, unspecified

== ENCOUNTER → 2017-02-02 | Outpatient (CLI) | payer BC ==
[~2017-02-02] MED LIST changes: +CTP1 PO; -GEMF600T3 PO; +HYDR25TA4 PO; -HYG/25 PO; -ONDA4TAB46 PO
--- NOTE | 2017-02-02 16:08 | DIAGNOSTIC IMAGING REPORT ---
CT OF THE ABDOMEN AND PELVIS WITHOUT CONTRAST CLINICAL HISTORY: Acute left flank pain. Evaluate for stone. COMPARISON STUDY: CT of the abdomen and pelvis April 03, 2016. TECHNIQUE: Axial images of the abdomen and pelvis were obtained without IV contrast. Images were reviewed in the axial, sagittal, and coronal planes. A dose lowering technique was utilized adhering to the principles of ALARA. FINDINGS: Numerous bilateral renal calculi are noted. The largest is a 6 mm right lower pole calculus. There are no ureteral calculi and there is no hydronephrosis or hydroureter. There are no bladder calculi. Evaluation of the remainder of the abdomen and pelvis is suboptimal on this unenhanced exam. The liver, spleen, adrenal glands and pancreas are unremarkable. There is no evidence for a bowel obstruction. The appendix is normal. There is left colon diverticulosis without evidence for acute diverticulitis. There is no lymphadenopathy. No abscess is present. No suspicious osseous lesions are identified. IMPRESSION: 1. Bilateral nephrolithiasis. No ureteral calculi or hydronephrosis. 2. Colonic diverticulosis without evidence for acute diverticulitis. 3. No acute process within the abdomen or pelvis on unenhanced exam. Electronically signed by: Jeremiah Singh M.D. 02/02/2017 4:07 PM Dictated Date/Time: 02/02/2017 4:02 PM
== END | disposition home or self-care (01) ==
LOC: C.CTS 15:45
PROVIDERS: ATTEND Nurse Practitioner
DX: R10.9 Unspecified abdominal pain (principal); N20.0 Calculus of kidney; K57.90 Diverticulosis of intestine, part unspecified, without perforation or abscess without bleeding

== ENCOUNTER → 2017-02-03 | Outpatient (CLI) | payer BC ==
[2017-02-03 17:42] LABS: URINE APPEARANCE CLEAR (CLEAR); URINE BILIRUBIN NEG (NEG); URINE COLOR YELLOW; URINE NITRITE NEG (NEG); URINE SPECIFIC GRAVITY 1.037 (1.000-1.030); UROBILINOGEN NEG (NEG)
[2017-02-03 17:54] LABS: MANUAL MICROSCOPIC REQUIRED? NO; REVIEW REQ? NO
== END ==
LOC: C.LABBFT 12:34
PROVIDERS: ATTEND Nurse Practitioner
DX: R10.9 Unspecified abdominal pain (principal)

== ENCOUNTER 2017-12-05 13:22 | Emergency (ER) | payer BC, OTHER ==
[~2017-12-05] VITALS: Ht 182.9 cm; Wt 137.4 kg
[2017-12-05] MEDS ORDERED: MoRPHine SULFATE 10 MG/ML CARP/VIAL IV STA ×2 (13:31→14:52)
[2017-12-05] MEDS ORDERED: ONDANSETRON INJ 2 MG/ML 2 ML VIAL IV STA (13:31)
[2017-12-05 13:38] VITALS: TEMP 37; Ht 182.9 cm; Wt 137.4 kg
[2017-12-05] MEDS ORDERED: OPTIRAY 320 IV PRN (13:45)
[2017-12-05 13:54] LABS: BASO % 0.2 %; BASO ABS # 0.01 K/uL (0-0.2); EOS % 0.9 %; EOS ABS # 0.06 K/uL (0-0.5); HEMOGLOBIN 13.9 g/dL (14.0-18.0); IG# 0.02 K/uL (0.00-0.02); LYMPH % 39.4 %; LYMPH ABS # 2.55 K/uL (1.2-3.4); MEAN CELL VOLUME 89.9 fL (80-100); MEAN CORPUSCULAR HEMOGLOBIN 30.5 pg (25-34); MEAN CORPUSCULAR HGB CONC 33.9 g/dl (32-36); MEAN PLATELET VOLUME 9.7 fL (7.4-10.4); MONO % 5.9 %; MONO ABS # 0.38 K/uL (0.11-0.59); NEUT % 53.3 %; NEUT ABS # 3.45 K/uL (1.4-6.5); PLATELET COUNT 231 K/uL (130-400); RED CELL DISTRIBUTION WIDTH CV 12.9 % (11.5-14.5); RED CELL DISTRIBUTION WIDTH SD 42.2 fL (36.4-46.3); WHITE BLOOD COUNT 6.47 K/uL (4.8-10.8)
[2017-12-05 13:56] LABS: ISTAT CREATININE 1.3 mg/dl (0.6-1.3); ISTAT IONIZED CALCIUM 1.14 mmol/l (1.12-1.32); ISTAT POTASSIUM 3.7 mEq/L (3.3-5.0)
--- NOTE | 2017-12-05 14:09 | DIAGNOSTIC IMAGING REPORT ---
L HAND MIN 3 VIEWS ROUTINE CLINICAL HISTORY: Fall/hand injury trauma. Pain. COMPARISON: None. DISCUSSION: The bones and joint spaces appear intact. There is no evidence of fracture, dislocation or bony disease. There is no evidence for soft tissue swelling. IMPRESSION: Negative study. The above report was generated using voice recognition software. It may contain grammatical, syntax or spelling errors. Electronically signed by: Toribio Fountain M.D. 12/05/2017 2:08 PM Dictated Date/Time: 12/05/2017 2:07 PM
[2017-12-05 14:17] LABS: INR 1.1 (0.9-1.1); PTT PATIENT 27.6 SECONDS (21.0-31.0)
[2017-12-05] MEDS ORDERED: CLON0.2T PO (14:35)
[2017-12-05] MEDS ORDERED: HYDR25TA4 PO (14:35)
[2017-12-05] MEDS ORDERED: DICL-201 PO (14:35)
[2017-12-05] MEDS ORDERED: ENAL1TAB31 PO (14:35)
--- NOTE | 2017-12-05 14:53 | DIAGNOSTIC IMAGING REPORT ---
HEAD WITHOUT CONTRAST (CT) CT DOSE: HISTORY: Trauma Trauma/fall/head pain TECHNIQUE: Multiaxial CT images of the head were performed without the use of intravenous contrast. A dose lowering technique was utilized adhering to the principles of ALARA. Comparison: 10/02/2016 Findings: The paranasal sinuses and mastoid air cells are clear. 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 Density characteristics otherwise are unremarkable. There is no acute intracranial hemorrhage. No evidence for midline shift. Impression: No acute intracranial abnormality. Chronic and age-related change. The above report was generated using voice recognition software. It may contain grammatical, syntax or spelling errors. Electronically signed by: Toribio Fountain M.D. 12/05/2017 2:52 PM Dictated Date/Time: 12/05/2017 2:51 PM
--- NOTE | 2017-12-05 14:57 | DIAGNOSTIC IMAGING REPORT ---
CERVICAL SPINE W/O CT DOSE: HISTORY: Trauma. Pain. Trauma/fall/neck pain TECHNIQUE: Multiaxial CT images of the cervical spine were performed and reformatted in the sagittal and coronal plane without the use of contrast. A dose lowering technique was utilized adhering to the principles of ALARA. COMPARISON: None. FINDINGS: No acute bony abnormality. Findings consistent with an anterior fusion at C6-C7. No evidence for compression deformity. The C1-C2 complex is intact. The posterior arch at all levels unremarkable. There are findings of mild muscular spasm. Old healed fracture posterior aspect right first rib. IMPRESSION: No fractures within the cervical spine. Chronic and postoperative change as noted. The above report was generated using voice recognition software. It may contain grammatical, syntax or spelling errors. Electronically signed by: Toribio Fountain M.D. 12/05/2017 2:55 PM Dictated Date/Time: 12/05/2017 2:53 PM
--- NOTE | 2017-12-05 14:58 | DIAGNOSTIC IMAGING REPORT ---
CT (CHEST) THORAX WITH CT DOSE: HISTORY: Trauma Trauma/fall/right chest pain TECHNIQUE: Multiaxial CT images of the chest were performed following the intravenous administration of contrast. A dose lowering technique was utilized adhering to the principles of ALARA. COMPARISON: None. FINDINGS: The lungs are clear. The mediastinal vascular structures are within normal limits. No mediastinal or hilar lymphadenopathy. No pleural effusion or pneumothorax. Limited views of the upper abdomen demonstrate a normal liver and spleen. IMPRESSION: No significant abnormality identified within the chest. The above report was generated using voice recognition software. It may contain grammatical, syntax or spelling errors. Electronically signed by: Toribio Fountain M.D. 12/05/2017 2:57 PM Dictated Date/Time: 12/05/2017 2:56 PM
--- NOTE | 2017-12-05 15:01 | DIAGNOSTIC IMAGING REPORT ---
THORACIC SPINE WITHOUT CT DOSE: HISTORY: Trauma. Pain. Trauma/fall/mid back pain TECHNIQUE: Multiaxial CT images of the thoracic spine were performed and reformatted in the sagittal and coronal plane without the use of contrast. A dose lowering technique was utilized adhering to the principles of ALARA. COMPARISON: None. FINDINGS: No fractures. No subluxation. Paraspinal soft tissues are unremarkable. IMPRESSION: No fractures within the thoracic spine. The above report was generated using voice recognition software. It may contain grammatical, syntax or spelling errors. Electronically signed by: Toribio Fountain M.D. 12/05/2017 2:59 PM Dictated Date/Time: 12/05/2017 2:58 PM
--- NOTE | 2017-12-05 15:02 | DIAGNOSTIC IMAGING REPORT ---
ABD/PELVIS IV CONTRAST ONLY CT DOSE: HISTORY: Trauma. Pain. Trauma/fall/right flank pain TECHNIQUE: Multiaxial CT images of the abdomen and pelvis were performed following the use of intravenous contrast. A dose lowering technique was utilized adhering to the principles of ALARA. COMPARISON STUDY: None. FINDINGS: The lung bases are clear. The liver, spleen, gallbladder, pancreas, kidneys, and adrenal glands are within normal limits. No bowel wall thickening or obstruction. The pelvic organs are unremarkable. No suspicious lytic or blastic osseous lesions. IMPRESSION: No significant abnormality identified within the abdomen or pelvis. The above report was generated using voice recognition software. It may contain grammatical, syntax or spelling errors. Electronically signed by: Toribio Fountain M.D. 12/05/2017 3:01 PM Dictated Date/Time: 12/05/2017 3:00 PM
--- NOTE | 2017-12-05 15:04 | DIAGNOSTIC IMAGING REPORT ---
LUMBAR SPINE WITHOUT CT DOSE: 6125.79 mGy.cm HISTORY: Trauma. Pain. Trauma/fall/low back pain TECHNIQUE: Multiaxial CT images of the lumbar spine were performed and reformatted in the sagittal and coronal plane without the use of contrast. A dose lowering technique was utilized adhering to the principles of ALARA. COMPARISON: None. FINDINGS: No fractures. No subluxation. Paraspinal soft tissues are unremarkable. IMPRESSION: No fractures within the lumbar spine. The above report was generated using voice recognition software. It may contain grammatical, syntax or spelling errors. Electronically signed by: Toribio Fountain M.D. 12/05/2017 3:03 PM Dictated Date/Time: 12/05/2017 3:01 PM
[2017-12-05] MEDS ORDERED: OXYC-737 PO (15:50)
--- NOTE | 2017-12-05 15:51 | EMERGENCY ROOM VISIT NOTE ---
History First contact with patient: 13:23 Chief Complaint: FALL Stated Complaint: FALL/ BACK PAIN History of Present Illness The patient is a 42 year old male who presents to the Emergency Room via ambulance with complaints of falling 6 foot into an open foundation. The EMS states that there were broken up cement blocks and concrete at the base of the opening. The patient was mowing his grass and slipped and fell into the open foundation. The patient did not have any loss of consciousness. He knew where he was after the injury occurred. EMS arrived. He has been complaining mainly of mid to low back pain and right flank pain. Although after questioning the patient is also complaining of some posterior head pain but denies any visual changes or dizziness. The patient is not on any blood thinners. The patient points to the right flank area as another area of pain. He denies any shortness of breath. The patient denies any facial pain or any pain in his arms or legs. He is complaining of some left hand pain. The patient also admits to some neck, upper back and low back pain. He currently rates the pain at a 7 out of 10. Review of Systems 10 system review was performed and was negative unless stated otherwise history of present illness. Past Medical/Surgical History Medical Problems: (1) Asthma, Unspecified (2) Calculus Of Kidney (3) Depressive Disorder Nec (4) Diverticulitis Colon (W/O Ment Of Hemorrhage) (5) Migraine Unspecified W/O Intract Mgrn W/O Status Migrainosus (6) Pneumonia, Organism Nos Hyperlipidemia Family History No pertinent family history Social History Smoking Status: Never Smoker Alcohol Use: none Marital Status: single Occupation Status: employed Current/Historical Medications Scheduled Clonidine Hcl (Catapres), 0.2 MG PO BID Enalapril Maleate (Vasotec), 20 MG PO BID Hydrochlorothiazide (Hctz), 25 MG PO DAILY Scheduled PRN Diclofenac (Voltaren), 75 MG PO UD PRN for Pain Physical Exam Vital Signs Date Time Temp Pulse Resp B/P (MAP) Pulse Ox O2 Delivery O2 Flow Rate FiO2 12/05/17 14:50 106 18 133/91 96 12/05/17 13:38 37.0 133 22 151/104 98 Room Air Physical Exam GENERAL: Obese 42-year-old white male appears uncomfortable secondary to pain. MENTAL STATUS: Patient is alert and oriented x3. Patient answers questions appropriately. HEAD: Atraumatic, tenderness palpation of the posterior aspect otherwise nontender. No visible lacerations noted. EYES: PERRLA. EOMs intact. EARS: Canals clear. TMs without hemotympanum noted. NECK: Supple, no lymphadenopathy noted. No carotid bruits noted. LUNGS: Clear auscultation without wheezes rales or rhonchi. CARDIAC: Regular rate and rhythm without murmur. Pulses is full and equal throughout. CHEST WALL: No gross bony deformity noted. The patient has multiple superficial abrasions noted over the anterior chest. He has some tenderness palpation on the right lower lateral chest wall. ABDOMEN: Positive bowel sounds all 4 quadrants. Soft, tenderness palpation in the right lower quadrant otherwise nontender to palpation . Difficult to evaluate for organomegaly or masses due to patient size.. NEURO: Grossly intact. SPINE: Entire spine is tender to palpation. Did not assess range of motion. SKIN: Multiple superficial abrasions noted on the anterior chest and abdomen. No deep lacerations noted. LEFT HAND: No gross bony deformity noted. Superficial abrasion noted. Some generalized edema noted. MUSCULAR skeletal: Remainder of upper extremities and lower extremities with full range of motion and no bony abnormality. Medical Decision & Procedures ER Provider Diagnostic Interpretation: LUMBAR SPINE WITHOUT CT DOSE: 6125.79 mGy.cm HISTORY: Trauma. Pain. Trauma/fall/low back pain TECHNIQUE: Multiaxial CT images of the lumbar spine were performed and reformatted in the sagittal and coronal plane without the use of contrast. A dose lowering technique was utilized adhering to the principles of ALARA. COMPARISON: None. FINDINGS: No fractures. No subluxation. Paraspinal soft tissues are unremarkable. IMPRESSION: No fractures within the lumbar spine. The above report was generated using voice recognition software. It may contain grammatical, syntax or spelling errors. Electronically signed by: Toribio Fountain M.D. 12/05/2017 3:03 PM THORACIC SPINE WITHOUT CT DOSE: HISTORY: Trauma. Pain. Trauma/fall/mid back pain TECHNIQUE: Multiaxial CT images of the thoracic spine were performed and reformatted in the sagittal and coronal plane without the use of contrast. A dose lowering technique was utilized adhering to the principles of ALARA. COMPARISON: None. FINDINGS: No fractures. No subluxation. Paraspinal soft tissues are unremarkable. IMPRESSION: No fractures within the thoracic spine. The above report was generated using voice recognition software. It may contain grammatical, syntax or spelling errors. Electronically signed by: Toribio Fountain M.D. 12/05/2017 2:[address] (CHEST) THORAX WITH CT DOSE: HISTORY: Trauma Trauma/fall/right chest pain TECHNIQUE: Multiaxial CT images of the chest were performed following the intravenous administration of contrast. A dose lowering technique was utilized adhering to the principles of ALARA. COMPARISON: None. FINDINGS: The lungs are clear. The mediastinal vascular structures are within normal limits. No mediastinal or hilar lymphadenopathy. No pleural effusion or pneumothorax. Limited views of the upper abdomen demonstrate a normal liver and spleen. IMPRESSION: No significant abnormality identified within the chest. The above report was generated using voice recognition software. It may contain grammatical, syntax or spelling errors. Electronically signed by: Toribio Fountain M.D. ABD/PELVIS IV CONTRAST ONLY CT DOSE: HISTORY: Trauma. Pain. Trauma/fall/right flank pain TECHNIQUE: Multiaxial CT images of the abdomen and pelvis were performed following the use of intravenous contrast. A dose lowering technique was utilized adhering to the principles of ALARA. COMPARISON STUDY: None. FINDINGS: The lung bases are clear. The liver, spleen, gallbladder, pancreas, kidneys, and adrenal glands are within normal limits. No bowel wall thickening or obstruction. The pelvic organs are unremarkable. No suspicious lytic or blastic osseous lesions. IMPRESSION: No significant abnormality identified within the abdomen or pelvis. The above report was generated using voice recognition software. It may contain grammatical, syntax or spelling errors. Electronically signed by: Toribio Fountain M.D. 12/05/2017 3:01 PM CERVICAL SPINE W/O CT DOSE: HISTORY: Trauma. Pain. Trauma/fall/neck pain TECHNIQUE: Multiaxial CT images of the cervical spine were performed and reformatted in the sagittal and coronal plane without the use of contrast. A dose lowering technique was utilized adhering to the principles of ALARA. COMPARISON: None. FINDINGS: No acute bony abnormality. Findings consistent with an anterior fusion at C6-C7. No evidence for compression deformity. The C1-C2 complex is intact. The posterior arch at all levels unremarkable. There are findings of mild muscular spasm. Old healed fracture posterior aspect right first rib. IMPRESSION: No fractures within the cervical spine. Chronic and postoperative change as noted. The above report was generated using voice recognition software. It may contain grammatical, syntax or spelling errors. Electronically signed by: oTribio Fountain M.D. HEAD WITHOUT CONTRAST (CT) CT DOSE: HISTORY: Trauma Trauma/fall/head pain TECHNIQUE: Multiaxial CT images of the head were performed without the use of intravenous contrast. A dose lowering technique was utilized adhering to the principles of ALARA. Comparison: 10/02/2016 Findings: The paranasal sinuses and mastoid air cells are clear. 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 Density characteristics otherwise are unremarkable. There is no acute intracranial hemorrhage. No evidence for midline shift. Impression: No acute intracranial abnormality. Chronic and age-related change. The above report was generated using voice recognition software. It may contain grammatical, syntax or spelling errors. Electronically signed by: Toribio Fountain M.D. 12/05/2017 2:52 PM L HAND MIN 3 VIEWS ROUTINE CLINICAL HISTORY: Fall/hand injury trauma. Pain. COMPARISON: None. DISCUSSION: The bones and joint spaces appear intact. There is no evidence of fracture, dislocation or bony disease. There is no evidence for soft tissue swelling. IMPRESSION: Negative study. The above report was generated using voice recognition software. It may contain grammatical, syntax or spelling errors. Electronically signed by: Toribio Fountain M.D. 12/05/2017 2:08 PM Laboratory Results 12/05/17 13:35 Red Blood Count 4.56, Mean Corpuscular Volume 89.9, Mean Corpuscular Hemoglobin 30.5, Mean Corpuscular Hemoglobin Concent 33.9, Mean Platelet Volume 9.7, Neutrophils (%) (Auto) 53.3, Lymphocytes (%) (Auto) 39.4, Monocytes (%) (Auto) 5.9, Eosinophils (%) (Auto) 0.9, Basophils (%) (Auto) 0.2, Neutrophils # (Auto) 3.45, Lymphocytes # (Auto) 2.55, Monocytes # (Auto) 0.38, Eosinophils # (Auto) 0.06, Basophils # (Auto) 0.01 Test 12/05/17 13:35 12/05/17 13:36 12/05/17 13:37 12/05/17 13:43 White Blood Count 6.47 K/uL (4.8-10.8) Red Blood Count 4.56 M/uL (4.7-6.1) Hemoglobin 13.9 g/dL (14.0-18.0) Hematocrit 41.0 % (42-52) Mean Corpuscular Volume 89.9 fL (80-100) Mean Corpuscular Hemoglobin 30.5 pg (25-34) Mean Corpuscular Hemoglobin Concent 33.9 g/dl (32-36) Platelet Count 231 K/uL (130-400) Mean Platelet Volume 9.7 fL (7.4-10.4) Neutrophils (%) (Auto) 53.3 % Lymphocytes (%) (Auto) 39.4 % Monocytes (%) (Auto) 5.9 % Eosinophils (%) (Auto) 0.9 % Basophils (%) (Auto) 0.2 % Neutrophils # (Auto) 3.45 K/uL (1.4-6.5) Lymphocytes # (Auto) 2.55 K/uL (1.2-3.4) Monocytes # (Auto) 0.38 K/uL (0.11-0.59) Eosinophils # (Auto) 0.06 K/uL (0-0.5) Basophils # (Auto) 0.01 K/uL (0-0.2) RDW Standard Deviation 42.2 fL (36.4-46.3) RDW Coefficient of Variation 12.9 % (11.5-14.5) Immature Granulocyte % (Auto) 0.3 % Immature Granulocyte # (Auto) 0.02 K/uL (0.00-0.02) Prothrombin Time 11.2 SECONDS (9.0-12.0) Prothromb Time International Ratio 1.1 (0.9-1.1) Activated Partial Thromboplast Time 27.6 SECONDS (21.0-31.0) Partial Thromboplastin Ratio 1.1 Bedside Hemoglobin 13.9 g/dl (14.0-18.0) Bedside Hematocrit 41 % (42-52) Bedside Sodium 139 mEq/L (135-144) Bedside Potassium 3.7 mEq/L (3.3-5.0) Bedside Chloride 101 mEq/L (101-112) Bedside Total CO2 24 mEq/l (24-31) Anion Gap 19.0 mmol/L (16-25) Bedside Blood Urea Nitrogen 21 mg/dl (7-18) Bedside Creatinine 1.3 mg/dl (0.6-1.3) Bedside Glucose (other) 123 mg/dl (70-99) Bedside Ionized Calcium (Jamaal) 1.14 mmol/l (1.12-1.32) Medications Administered Medications (Trade) Dose Ordered Sig/Corie Route Start Time Stop Time Status Last Admin Dose Admin Morphine Sulfate (MoRPHine SULFATE INJ) 6 mg NOW STAT IV 12/05/17 13:31 12/05/17 13:38 DC 12/05/17 13:49 6 MG Ondansetron HCl (Zofran Inj) 4 mg NOW STAT IV 12/05/17 13:31 12/05/17 13:38 DC 12/05/17 13:49 4 MG Morphine Sulfate (MoRPHine SULFATE INJ) 6 mg NOW STAT IV 12/05/17 14:52 12/05/17 14:53 DC 12/05/17 14:57 6 MG ED Course The patient was evaluated. Patient's EMR medication list were reviewed. IV access was obtained. The patient was given morphine 6 mg IV for pain and Zofran 4 mg IV push for associated nausea. [id number] BMP was ordered. CBC and differential, coags, urinalysis was also ordered. CT of the brain, cervical spine, thoracic spine, chest, lumbar spine, abdomen and pelvis was ordered interpreted by the radiologist as above without any acute findings. Left hand x-ray was ordered interpreted by the radiologist and myself as above without any fracture. Labs are reviewed and were unremarkable. The patient was still in pain and therefore was given additional 6 mg of morphine IV. The patient was reevaluated on several occasions throughout ER stay. The patient was feeling much better and was discharged home in stable condition. Medical Decision Differential diagnosis include contusions versus fractures of multiple body parts [place] Drug Monitoring Program Search Results: patient reviewed within database Head Trauma GCS Score: 15 Medication Reconcilliation Current Medication List: was personally reviewed by me Blood Pressure Screening Patient's blood pressure: Elevated blood pressure Blood pressure disposition: Elevated BP felt to be situational Impression Primary Impression: Fall Additional Impression: Contusion of multiple sites Departure Information Dispostion Home / Self-Care Condition GOOD Prescriptions Oxycodone Immediate Rel Tab (ROXICODONE IR) 5 Mg Tab 1-2 TAB PO Q6 Y for Pain, #20 TAB Prov: Essie, Jaja M., PA-C 12/05/17 Referrals RV. Alvarez MD (PCP) Forms HOME CARE DOCUMENTATION FORM, IMPORTANT VISIT INFORMATION Patient Instructions My [facility] Additional Instructions Take Tylenol as needed for pain. Take OxyIR as needed for more severe pain. Do not drive while taking the OxyIR. You will most likely feel worse tomorrow but then your symptoms should slowly improve. If symptoms are not improving recommend follow-up with your family doctor for recheck. Problem Qualifiers Primary Impression: Fall Encounter type: initial encounter Qualified Codes: W19.XXXA - Unspecified fall, initial encounter
[2017-12-05 16:33] VITALS: BP 125/83; PULSE 104; O2SAT 94
== END 2017-12-05 16:37 | disposition home or self-care (01) ==
LOC: EDBD 13:22 → C.EDB 13:22
DX: S20.319A Abrasion of unspecified front wall of thorax, initial encounter (principal); S30.811A Abrasion of abdominal wall, initial encounter; S60.512A Abrasion of left hand, initial encounter; T14.8XXA Other injury of unspecified body region, initial encounter; W17.89XA Other fall from one level to another, initial encounter; Y93.H9 Activity, other involving exterior property and land maintenance, building and construction; J45.909 Unspecified asthma, uncomplicated; Z87.442 Personal history of urinary calculi; F32.9 Major depressive disorder, single episode, unspecified; Z87.01 Personal history of pneumonia (recurrent); E78.5 Hyperlipidemia, unspecified; Z79.899 Other long term (current) drug therapy; E66.9 Obesity, unspecified

== ENCOUNTER 2019-05-02 10:07 | Observation (INO) ==
[2019-05-02] MEDS ORDERED: KETOROLAC TROMETHAMINE 15 MG/ML VIAL IV ONE (10:38)
[2019-05-02] MEDS ORDERED: SODIUM CHLORIDE 0.9% 1000ML 2,000 ML IV ONE (10:38)
[2019-05-02] MEDS ORDERED: MoRPHine SULFATE 10 MG/ML CARP/VIAL IV STA (10:38)
[2019-05-02] MEDS ORDERED: ONDANSETRON INJ 2 MG/ML 2 ML VIAL IV STA (10:38)
[2019-05-02 11:19] LABS: Basophils # (auto) 0.01 K/uL (0-0.2); Basophils % (auto) 0.1 %; Eosinophils # (auto) 0.06 K/uL (0-0.5); Eosinophils % (auto) 0.7 %; Hematocrit (blood only) 37.6 % (42-52); Hemoglobin 12.5 g/dL (14.0-18.0); Immature Granulocytes # (auto) 0.02 K/uL (0.00-0.02); Immature Granulocytes % (auto) 0.2 %; Lymphocytes # (auto) 2.13 K/uL (1.2-3.4); Lymphocytes % (auto) 23.3 %; Mean Corpuscular Hemoglobin 31.2 pg (25-34); Mean Corpuscular Hgb Conc 33.2 g/dL (32-36); Mean Corpuscular Volume 93.8 fL (80-100); Mean Platelet Volume 9.8 fL (7.4-10.4); Monocytes # (auto) 0.59 K/uL (0.11-0.59); Monocytes % (auto) 6.5 %; Neutrophils # (auto) 6.33 K/uL (1.4-6.5); Neutrophils % (auto) 69.2 %; Platelet Count 258 K/uL (130-400); RDW Coefficient of Variation 14.3 % (11.5-14.5); RDW Standard Deviation 48.9 fL (36.4-46.3); Red Blood Count 4.01 M/uL (4.7-6.1); White Blood Count 9.14 K/uL (4.8-10.8)
[2019-05-02 11:21] LABS: Appearance Urine Cloudy (Clear); Bilirubin Urine Negative (Negative); Blood Urine 3+ (Negative); Color Urine Orange; Epithelial Cell Urine Auto 0-5 /lpf (0-5); Glucose Urine UA Negative (Negative); Ketones Urine Negative (Negative); Leukocyte Esterase Urine Trace (Negative); Nitrite Urine Negative (Negative); Protein Urine 1+ (Negative); RBC Urine Automated >30 /hpf (0-4); Specific Gravity Urine 1.026 (1.000-1.030); Urobilinogen Urine Negative (Negative)
[2019-05-02 11:38] LABS: Albumin Level 4.5 gm/dl (3.4-5.0); BUN Creatinine Ratio 15.3 (10-20); Calcium 9.2 mg/dl (8.5-10.1); Est GFR (African American) 80.1; Est GFR (Non-African American) 69.1; Potassium 3.8 mmol/L (3.5-5.1)
--- NOTE | 2019-05-02 11:38 | CT Scan Report ---
CT SCAN OF THE ABDOMEN AND PELVIS WITHOUT IV CONTRAST CLINICAL HISTORY: Right flank pain. COMPARISON STUDY: Abdominal CT dated 08/31/2018. TECHNIQUE: CT scan of the abdomen and pelvis is performed from the lung bases to the proximal femora. Images are reviewed in the axial, sagittal, and coronal planes. IV contrast was not administered for this examination as per the referring clinician. A dose lowering technique was utilized adhering to the principles of ALARA. CT DOSE: 1749.50 mGy.cm FINDINGS: Lung bases: The heart is normal in size and without pericardial effusion. The lung bases are clear. Liver: The unenhanced liver is enlarged, measuring 21.6 cm in length. The liver demonstrates diffusel y diminished attenuation consistent with hepatic steatosis. There is no intrahepatic biliary ductal d ilatation. Gallbladder: Unremarkable. Spleen: Normal in size and attenuation. Pancreas: Unremarkable. Adrenal glands: Unremarkable. Kidneys: The unenhanced kidneys are normal in size. There is a 6 mm obstructing calculus in the dista l right ureter seen on image #450. This is located just above the vesicoureteral junction and causes mild to moderate right hydroureteronephrosis. There is mild right-sided perinephric and periureteric stranding. No additional right renal calculi are identified. There are least 8 nonobstructing left re nal calculi which measure up to 4 mm. There is no left-sided hydronephrosis, and no left ureteral sto ne is identified. There is no evidence of contour deforming renal mass lesion. Abdominal vasculature: The abdominal aorta is normal in course and caliber. Bowel: There are scattered colonic diverticula without CT evidence of acute diverticulitis. No bowel obstruction is seen. The appendix is well-visualized and normal. Peritoneum: There is no intraperitoneal free air or abdominal ascites. There is a fat-containing umbi lical hernia. Lymphadenopathy: None. Pelvic viscera: The bladder, prostate, and seminal vesicles are normal as visualized. Skeletal structures: No lytic or blastic lesions are seen. IMPRESSION: 1. There is a 6 mm obstructing calculus in the distal right ureter. This causes mild to moderate righ t hydroureteronephrosis. 2. No additional right renal calculi are identified. 3. Nonobstructing left renal calculi as above. 4. Hepatomegaly and mild hepatic steatosis. ACT 112: Negative or not required by law. Electronically signed by: Ty Gasca M.D. 05/02/2019 11:36 AM
[2019-05-02 11:41] LABS: Albumin Globulin Ratio 1.2 (0.9-2); Bilirubin,Total 0.4 mg/dl (0.2-1); Globulin 3.7 gm/dl (2.5-4.0); Total Protein 8.2 gm/dl (6.4-8.2)
[2019-05-02 11:42] LABS: Bacteria Urine Automated 1+ (Negative)
[2019-05-02] MEDS ORDERED: DiphenhydrAMINE HCL 50 MG/ML VIAL IV STA (11:50)
[2019-05-02] MEDS ORDERED: HYDROmorphone INJ 1 MG/ML SYRINGE IV STA (12:04)
[2019-05-02] MEDS ORDERED: FLUCONAZOLE 50 MG TAB PO ONE (12:49)
[2019-05-02] MEDS ORDERED: HYDROmorphone INJ 0.5 MG/0.5 ML SYR IV STA (13:14)
[2019-05-02] MEDS ORDERED: cefTRIAXone SODIUM 1,000 MG/50 ML BAG IV STA (13:41)
--- NOTE | 2019-05-02 14:58 | Emergency Department Note ---
Entered by Mercy Joyner acting as a scribe for Pineda Gaona DO History of Present Illness General Chief complaint: Hematuria Stated complaint: RT SIDED ABD PAIN,ALOT OF BLOOD IN URINE Source: patient History of Present Illness Onset (ago): day(s) 2 Location: abdomen (right lower) Radiation: other (groin) Severity: similar to prior episodes Pain Consistency: + other (persistent) Maximum Pain Intensity: 7 Associated symptoms: + nausea/vomiting (positive nausea; negative vomiting ) and + other (positive blood in urine; negative diarrhea; negative back pain; negative burning with urination; negative testicle swelling; negative penile discharge) The patient is a 43 year old male who presents to the Emergency Room with complaints of persistent right lower abdominal pain that began Wednesday, 2 days prior to arrival. The patient states that his pain radiates to his groin. He reports nausea during this time, but denies vomiting and diarrhea. The patient denies back pain and burning with urination, but states that he has had blood in his urine. The patient states that this feels similar to his prior episodes of kidney stones. The patient denies testicle swelling or penile discharge. The patient states that he still has his appendix and gallbladder but states that he previously had a bowel resection after having diverticulitis. Home Medications Home Medications Medication Instructions Recorded Confirmed Type clonidine HCl 1 tab PO BID 01/23/18 05/02/19 History gemfibrozil 600 mg PO BID 01/23/18 05/02/19 History hydrochlorothiazide 25 mg PO QAM 01/23/18 05/02/19 History carvedilol 6.25 mg tablet 6.25 mg PO BID #180 tab 02/09/19 05/02/19 History enalapril maleate 20 mg tablet 20 mg PO BID #180 tab 03/06/19 05/02/19 Rx atorvastatin 80 mg tablet 80 mg PO DAILY #90 tab 04/03/19 05/02/19 Rx Allergies Allergy/AdvReac Type Severity Reaction Status Date / Time tramadol Allergy Intermediate HIVES Verified 05/02/19 12:17 Past Med/Surg History Medical History Facet syndrome, lumbar (Chronic) Heart murmur DX 2018 JUST WATCHING History of diverticulitis Hypertension Kidney stones HISTORY OF MANY TIMES Lumbago (Chronic) Osteoarthritis Renal colic on right side (Inactive) Tachycardia (Resolved) DX 01/2018 AND WATCHING Ureterolithiasis (Resolved) Surgical History Fusion of spine C5-6 FUSION NO LIMITATIONS History of bowel resection DUE TO DIVERTICULI History of colonoscopy History of lithotripsy X MANY Family History Other No significant family history Social History Preferred Language: [place]gu[place] Communication Ability: Effective Senior Foreman Required: No Beliefs That Will Affect Care: None Current Living Situation: Alone Current Living Situation Comment: WITH GIRLFRIEND Other Information That Helps Us Care for You: No Feels Safe at Home: Yes Safety Concerns: Feels Safe At This Time Smoking Status: Never smoker Do You Dip or Chew Tobacco: No ; Second Hand Exposure: No ; Tobacco Cessation Education Requested by Patient: No Hx Alcohol Use: No Hx Substance Use: No Review of Systems See HPI for pertinent positives & negatives. and A total of 10 systems reviewed and were otherwise negative Physical Exam Vital Signs Vital Signs - 24 hr 05/02/19 10:15 05/02/19 11:44 05/02/19 12:41 Temperature 36.6 C Temperature Source Oral Pulse Rate 94 H Pulse Rate [Left] 96 H 97 H Pulse Rhythm [Left] Regular Regular Respiratory Rate 22 22 15 Respiratory Effort / Characteristics Non-Labored Non-Labored Non-Labored Respiratory Depth Normal Normal Normal Respiratory Pattern Regular Regular Regular Blood Pressure 163/90 H Blood Pressure [Right Arm] 152/101 H 148/102 H Blood Pressure Mean 114 Blood Pressure Mean [Right Arm] 118 117 Blood Pressure Position Sitting Pulse Oximetry 94 99 99 Oxygen Delivery Method Room Air Room Air Room Air Sepsis Recent Fever Within 48 Hours No Sepsis New/Unexplained Change in Mental Status No Sepsis Action Taken by Nursing No Action Required 05/02/19 14:15 Temperature Temperature Source Pulse Rate Pulse Rate [Left] 102 H Pulse Rhythm [Left] Regular Respiratory Rate 20 Respiratory Effort / Characteristics Non-Labored Respiratory Depth Normal Respiratory Pattern Regular Blood Pressure Blood Pressure [Right Arm] 112/82 Blood Pressure Mean Blood Pressure Mean [Right Arm] 92 Blood Pressure Position Pulse Oximetry 96 Oxygen Delivery Method Room Air Sepsis Recent Fever Within 48 Hours Sepsis New/Unexplained Change in Mental Status Sepsis Action Taken by Nursing GENERAL: Laying in bed, in moderate distress, holding right lower quadrant. EYE EXAM: normal conjunctiva OROPHARYNX: no exudate, no erythema, lips, buccal mucosa, and tongue normal and mucous membranes are moist NECK: supple, no nuchal rigidity, no adenopathy, non-tender LUNGS: Clear to auscultation. Normal chest wall mechanics HEART: no murmurs, S1 normal and S2 normal ABDOMEN: Tenderness to palpation of the right lower quadrant, abdomen soft, normo-active bowel sounds, no masses, no rebound or guarding. BACK: Back is symmetrical on inspection and there is no deformity, no midline tenderness, no CVA tenderness. SKIN: no rashes and no bruising UPPER EXTREMITIES: upper extremities are grossly normal. LOWER EXTREMITIES: No pitting edema. NEURO EXAM: Normal sensorium, cranial nerves II-XII grossly intact, normal speech, no gross weakness of arms, no gross weakness of legs. Course Course ED COURSE: Vital signs were reviewed and showed hypertension. The patients medical record was reviewed The above diagnostic studies were performed and reviewed. ED treatments and interventions as stated above. 1035: The patient was evaluated in room C3. A complete history and physical examination was performed. 1226: Upon reevaluation, the patient is still having a lot of pain. I updated him. 1254: Upon reevaluation, the patient states that he is still having some pain. 1314: Upon reevaluation, the patient states that his pain is returning. He states that he has passed approximately 20 kidney stones. 1321: I discussed the case with Dr. Mendez-Urology who recommends Rocephin. 1324: Upon reevaluation, the patient is resting comfortably. I discussed my findings with the patient and he understands and agrees with the treatment plan. Based on the patients age, coexisting illnesses, exam and lab findings the decision to treat as an inpatient was made. The patient remained stable while under my care. 1331: The patient will be evaluated for further management. I discussed the case with Dr. Leyva-[facility] Hospitalist who accepts the patient for further evaluation. Administered Medications Discontinued Medications Diphenhydramine HCl (Benadryl) 50 mg IV NOW STA Stop: 05/02/19 11:51 Last Admin: 05/02/19 14:16 Dose: Not Given Documented by: [id number] Fluconazole (Diflucan) 100 mg PO NOW ONE Stop: 05/02/19 12:50 Last Admin: 05/02/19 12:58 Dose: 100 mg Documented by: [id number] Hydromorphone HCl (Dilaudid) 1 mg IV NOW STA Stop: 05/02/19 12:05 Last Admin: 05/02/19 12:37 Dose: 1 mg Documented by: [id number] Sodium Chloride (Nss 1000ml) 2,000 mls @ 999 mls/hr IV .Q2H1M ONE Stop: 05/02/19 12:38 Last Infusion: 05/02/19 12:43 Dose: 0 mls/hr Documented by: [id number] Admin: 05/02/19 10:48 Dose: 999 mls/hr Documented by: [id number] Ceftriaxone Sodium (Rocephin) 1,000 mg in 50 mls @ 100 mls/hr IV NOW STA Stop: 05/02/19 14:10 Last Infusion: 05/02/19 14:47 Dose: 0 mls/hr Documented by: [id number] Admin: 05/02/19 14:16 Dose: 100 mls/hr Documented by: [id number] Ketorolac Tromethamine (Toradol) 15 mg IV NOW ONE Stop: 05/02/19 10:39 Last Admin: 05/02/19 10:46 Dose: 15 mg Documented by: [id number] Morphine Sulfate (Morphine Sulfate) 6 mg IV NOW STA Stop: 05/02/19 10:39 Last Admin: 05/02/19 10:45 Dose: 6 mg Documented by: [id number] Ondansetron HCl (Zofran) 4 mg IV NOW STA Stop: 05/02/19 10:39 Last Admin: 05/02/19 10:45 Dose: 4 mg Documented by: [id number] Medical Decision Making Differential Diagnosis Differential diagnoses includes but is not limited to gastritis, peptic ulcer disease, GERD, gallbladder disease, pancreatitis, small bowel obstruction, acute coronary syndrome, pericarditis, ischemic bowel, irritable bowel disease, irritable bowel syndrome, appendicitis, diverticulitis, malignancy, hernia, urinary tract infection, torsion, perforation, trauma, infectious. Medical Records Attestation: I reviewed the patient's medical records. Home Medications Current Medication List: was personally reviewed by me Laboratory Data Attestation: I reviewed the patient's lab results. Result diagrams: 05/02/19 10:45 05/02/19 10:45 Lab Results 05/02/19 05/02/19 05/02/19 Range/Units 10:45 10:45 10:45 WBC 9.14 (4.8-10.8) K/uL RBC 4.01 L (4.7-6.1) M/uL Hgb 12.5 L (14.0-18.0) g/dL Hct 37.6 L (42-52) % MCV 93.8 (80-100) fL MCH 31.2 (25-34) pg MCHC 33.2 (32-36) g/dL RDW Std Deviation 48.9 H (36.4-46.3) fL RDW Coeff of Iain 14.3 (11.5-14.5) % Plt Count 258 (130-400) K/uL MPV 9.8 (7.4-10.4) fL Immature Gran % (Auto) 0.2 % Neut % (Auto) 69.2 % Lymph % (Auto) 23.3 % [place] % (Auto) 6.5 % Eos % (Auto) 0.7 % Baso % (Auto) 0.1 % Immature Gran # (Auto) 0.02 (0.00-0.02) K/uL Neut # (Auto) 6.33 (1.4-6.5) K/uL Lymph # (Auto) 2.13 (1.2-3.4) K/uL [place] # (Auto) 0.59 (0.11-0.59) K/uL Eos # (Auto) 0.06 (0-0.5) K/uL Baso # (Auto) 0.01 (0-0.2) K/uL Sodium 138 (136-145) mmol/L Potassium 3.8 (3.5-5.1) mmol/L Chloride 106 (98-107) mmol/L Carbon Dioxide 24 (21-32) mmol/L Anion Gap 7.0 (3-11) BUN 19 H (7-18) mg/dl Creatinine 1.25 (0.6-1.4) mg/dl Est Cr Clr Drug Dosing 112.0 ml/min Est GFR ( Amer) 80.1 Est GFR (Non-Af Amer) 69.1 BUN/Creatinine Ratio 15.3 (10-20) Glucose 140 H (70-99) mg/dl Calcium 9.2 (8.5-10.1) mg/dl Total Bilirubin 0.4 (0.2-1) mg/dl AST 14 L (15-37) U/L ALT 27 (12-78) U/L Alkaline Phosphatase 71 (45-117) U/L Total Protein 8.2 (6.4-8.2) gm/dl Albumin 4.5 (3.4-5.0) gm/dl Globulin 3.7 (2.5-4.0) gm/dl Albumin/Globulin Ratio 1.2 (0.9-2) Lipase 153 (73-393) U/L Urine Color [place] Urine Appearance Cloudy A (Clear) Urine pH 5.0 (4.5-7.5) Ur Specific [place] 1.026 (1.000-1.030) Urine Protein 1+ H (Negative) Urine Glucose (UA) Negative (Negative) Urine Ketones Negative (Negative) Urine Blood 3+ H (Negative) Urine Nitrite Negative (Negative) Urine Bilirubin Negative (Negative) Urine Urobilinogen Negative (Negative) Ur Leukocyte Esterase Trace H (Negative) Urine WBC (Auto) 1-5 (0-5) /hpf Urine RBC (Auto) >30 H (0-4) /hpf U Hyaline Cast (Auto) 1-5 (0-5) /lpf U Epithel Cells (Auto) 0-5 (0-5) /lpf Urine Bacteria (Auto) 1+ H (Negative) Urine Yeast Budding A (None Prsent) Imaging Data Radiologist's Impression: Radiology results as stated below per my review and the radiologist's interpretation: CT SCAN OF THE ABDOMEN AND PELVIS WITHOUT IV CONTRAST CLINICAL HISTORY: Right flank pain. COMPARISON STUDY: Abdominal CT dated 08/31/2018. TECHNIQUE: CT scan of the abdomen and pelvis is performed from the lung bases to the proximal femora. Images are reviewed in the axial, sagittal, and coronal planes. IV contrast was not administered for this examination as per the referring clinician. A dose lowering technique was utilized adhering to the principles of ALARA. CT DOSE: 1749.50 mGy.cm FINDINGS: Lung bases: The heart is normal in size and without pericardial effusion. The lung bases are clear. Liver: The unenhanced liver is enlarged, measuring 21.6 cm in length. The liver demonstrates diffusely diminished attenuation consistent with hepatic steatosis. There is no intrahepatic biliary ductal dilatation. Gallbladder: Unremarkable. Spleen: Normal in size and attenuation. Pancreas: Unremarkable. Adrenal glands: Unremarkable. Kidneys: The unenhanced kidneys are normal in size. There is a 6 mm obstructing calculus in the distal right ureter seen on image #450. This is located just above the vesicoureteral junction and causes mild to moderate right hydroureteronephrosis. There is mild right-sided perinephric and periureteric stranding. No additional right renal calculi are identified. There are least 8 nonobstructing left renal calculi which measure up to 4 mm. There is no left- sided hydronephrosis, and no left ureteral stone is identified. There is no evidence of contour deforming renal mass lesion. Abdominal vasculature: The abdominal aorta is normal in course and caliber. Bowel: There are scattered colonic diverticula without CT evidence of acute diverticulitis. No bowel obstruction is seen. The appendix is well-visualized and normal. Peritoneum: There is no intraperitoneal free air or abdominal ascites. There is a fat-containing umbilical hernia. Lymphadenopathy: None. Pelvic viscera: The bladder, prostate, and seminal vesicles are normal as visualized. Skeletal structures: No lytic or blastic lesions are seen. IMPRESSION: 1. There is a 6 mm obstructing calculus in the distal right ureter. This causes mild to moderate right hydroureteronephrosis. 2. No additional right renal calculi are identified. 3. Nonobstructing left renal calculi as above. 4. Hepatomegaly and mild hepatic steatosis. ACT 112: Negative or not required by law. Electronically signed by: Ty Gasca M.D. 05/02/2019 11:36 AM ECG Data Attestation: I personally reviewed and interpreted this ECG as follows: Indication: + abdominal pain Rate (beats per minute): 92 Rhythm: + sinus rhythm ECG Leigh: + Normal ECG Findings: + Other (poor baseline inferior ); no PVCs Blood Pressure Blood Pressure Findings: Normal blood pressure MDM Narrative Patient is a 43-year-old male with a past medical history of renal colic the presents the ER for severe right flank pain radiating to the groin. IV was established blood work was obtained. Vitals remarkable as patient was tachycardic. Labs show no significant leukocytosis. BMP was unremarkable as well as LFTs bilirubin and lipase. UA did have yeast and bacteria but no white cells. Patient had a significant amount of pain and was extremely uncomfortable. Patient was given 3 dose of IV narcotics along with IV Toradol and IV fluids. CT showed 6 mm right ureteral stone. Patient was given a dose of Diflucan as well as a dose of Rocephin. Was discussed with urology. Due to the severity of the pain he was discussed with the hospitalist for observation. Impression & Plan Renal colic, Hydronephrosis, Elevated BUN Discharge Plan Visit Data Chief Complaint: Hematuria Stated Complaint: RT SIDED ABD PAIN,ALOT OF BLOOD IN URINE ED Provider: Pineda Gaona Discharge Problem: Renal colic, Hydronephrosis, Elevated BUN Patient Disposition: Being Evaluated by Hospitalist Forms Stand Alone Forms: My [facility] Prescriptions Prescriptions: No Action enalapril maleate 20 mg tablet 20 mg PO BID Qty: 180 RF: 1 atorvastatin [Lipitor] 80 mg tablet 80 mg PO DAILY Qty: 90 RF: 3 carvedilol 6.25 mg tablet 6.25 mg PO BID Qty: 180 RF: 0 clonidine HCl 0.1 mg tablet 1 tab PO BID RF: 0 hydrochlorothiazide 25 mg tablet 25 mg PO QAM RF: 0 gemfibrozil 600 mg tablet 600 mg PO BID RF: 0 Referrals Referrals: Vitaliy Hoffman MD [Primary Care Provider] - Discharge Problem: Hydronephrosis Qualifiers: Hydronephrosis type: unspecified Qualified Code(s): N13.30 - Unspecified hydronephrosis The scribe's documentation has been prepared under my direction and personally reviewed by me in its entirety. I confirm that the note above accurately reflects all work, treatment, procedures, and medical decision making performed by me.
[2019-05-02] MEDS ORDERED: SODIUM CHLORIDE 0.9% 1000ML 1,000 ML IV SCH (16:11)
[2019-05-02] MEDS ORDERED: ONDANSETRON INJ 2 MG/ML 2 ML VIAL IV PRN (16:11)
[2019-05-02] MEDS ORDERED: HYDROmorphone INJ 1 MG/ML SYRINGE IV PRN (16:11)
[2019-05-02] MEDS ORDERED: TAMSULOSIN HCL 0.4 MG CAP PO SCH (16:11)
--- NOTE | 2019-05-02 16:28 | History & Physical Report ---
Date of Service May 02, 2019 Assessment & Plan (1) Right kidney stone: - CT A/P showed 6 mm obstructing right distal ureter stone with mild to moderate hydronephrosis. - Received IV pain meds along with abx in the ER. - Strain all urine -- pt. passed stone prior to arriving to the floor for admission. Will send stone for analysis. - IV fluids at 125 cc/hr -- tachycardic, likely related to dehydration in setting of poor PO intake. - Zofran prn N/V; Tylenol scheduled for pain with Dilaudid IV prn. - Discussed case with urology, no indication for f/u KUB; can be discharged to home this evening if pain is resolved. (2) UTI (urinary tract infection): - U/a pos for leuk est and bacteria, UC is pending. - Received Ceftriaxone 1 gm IV in the ER; will continue IV antibiotic. (3) Elevated BUN: - BUN 19 -- likely related to dehydration in setting of poor PO intake. - Received 2L bolus in ER; IVF at 125 cc/hr. (4) Depression with anxiety: - Not currently on medications. (5) History of diverticulitis of colon: - S/p sigmoidectomy in 2009. (6) Hyperlipidemia: - Not currently on statin agent, discuss with PCP. (7) Hypertension: - Continue home Clonidine BID as prescribed. - Holding home ACEI and HCTZ. (8) Mitral regurgitation: - Noted in 2018; pt. will be evaluated by burnt lime drawer next week in clinic. (9) Overweight: - BMI 38.2 - encourage weight loss and exercise. Dispo: Med/surg with tele; discharge likely this evening if pt. is tolerating diet and pain resolved after passing stone. History of Present Illness Chief Complaint: Right abdominal pain Primary Care Provider: Vitaliy Hoffman MD Mr. Ritchie is a 43 y/o male with PMHx obesity, HLD, HTN, Depression with anxiety, Nephrolithiasis, Diverticulitis s/p sigmoidectomy in 2009 who presented with right sided abd pain. He states he has a h/o kidney stones, follows with Dr. Denson and has required multiple lithotripsy procedures in the past. He developed right abd/flank pain last evening along with hematuria and dysuria. Denies fever/chills, constipation or diarrhea, nausea/vomiting, chest pain or SOB. ER course: Received multiple IV pain meds for pain control along with Ceftriaxone IV for empiric coverage. U/a was pos for blood, leuk est and bacteria. CT A/P showed 6 mm obstructing right distal ureter stone with mild to moderate hydrouretonephrosis. He was admitted for pain control and urology consult. Allergies Allergy/AdvReac Type Severity Reaction Status Date / Time tramadol Allergy Intermediate HIVES Verified 05/02/19 12:17 Home Medications Home Medications Medication Instructions Recorded Confirmed Type clonidine HCl 1 tab PO BID 01/23/18 05/02/19 History gemfibrozil 600 mg PO BID 01/23/18 05/02/19 History hydrochlorothiazide 25 mg PO QAM 01/23/18 05/02/19 History enalapril maleate 20 mg tablet 20 mg PO BID #180 tab 03/06/19 05/02/19 Rx atorvastatin 80 mg tablet 80 mg PO DAILY #90 tab 04/03/19 05/02/19 Rx ciprofloxacin HCl [Cipro] 500 mg PO BID 7 Days #14 tab 05/02/19 Rx Past Med/Surg History Medical History Facet syndrome, lumbar (Chronic) Heart murmur DX 2018 JUST WATCHING History of diverticulitis Hypertension Kidney stones HISTORY OF MANY TIMES Lumbago (Chronic) Osteoarthritis Renal colic on right side (Inactive) Tachycardia (Resolved) DX 01/2018 AND WATCHING Ureterolithiasis (Resolved) Surgical History Fusion of spine C5-6 FUSION NO LIMITATIONS History of bowel resection DUE TO DIVERTICULI History of colonoscopy History of lithotripsy X MANY Family History Other No significant family history Social History Preferred Language: Turkmen Communication Ability: Effective [employer] Worker Required: No Beliefs That Will Affect Care: None Current Living Situation: Alone Current Living Situation Comment: WITH GIRLFRIEND Other Information That Helps Us Care for You: No Feels Safe at Home: Yes Safety Concerns: Feels Safe At This Time Smoking Status: Never smoker Do You Dip or Chew Tobacco: No ; Second Hand Exposure: No ; Tobacco Cessation Education Requested by Patient: No Hx Alcohol Use: No Hx Substance Use: No Review of Systems Review of Systems: All systems reviewed & are unremarkable except as noted in HPI & below Constitutional: + fatigue, + weakness and + anorexia; no fever and no chills Respiratory: no cough, no dyspnea, no dyspnea on exertion and no wheezing Cardiovascular: no chest pain, no palpitations and no edema Gastrointestinal: + abdominal pain; no nausea, no vomiting and no constipation Genitourinary: + dysuria, + hematuria and + flank pain; no difficulty urinating and no decreased urination Musculoskeletal: no back pain and no joint pain Integumentary: no non-healing lesions Physical Exam Physical Exam: General: Resting comfortably, no acute distress. HEENT: NC/AT; PERRLA with EOMI; Luna conjunctiva, MMM. No erythema of posterior pharynx Neck: Supple and nontender Cardiac: RRR Lungs: CTA bilaterally Abdomen: Bowel normoactive X 4; Nontender to palpation : no CVA tenderness noted on exam. Extremities: Warm. No edema present Neuro: No focal weakness Skin: No rash Results & Data Vital Signs (Past 12 Hours) Vital Signs Temp Pulse Pulse Resp BP BP Pulse Ox 05/02/19 15:20 99 H 18 98 05/02/19 14:15 102 H 20 112/82 96 05/02/19 12:41 97 H 15 148/102 H 99 05/02/19 11:44 96 H 22 152/101 H 99 05/02/19 10:15 36.6 C 94 H 22 163/90 H 94 Laboratory Results Lab Results 05/02/19 05/02/19 05/02/19 Range/Units 10:45 10:45 10:45 WBC 9.14 (4.8-10.8) K/uL RBC 4.01 L (4.7-6.1) M/uL Hgb 12.5 L (14.0-18.0) g/dL Hct 37.6 L (42-52) % MCV 93.8 (80-100) fL MCH 31.2 (25-34) pg MCHC 33.2 (32-36) g/dL RDW Std Deviation 48.9 H (36.4-46.3) fL RDW Coeff of Iain 14.3 (11.5-14.5) % Plt Count 258 (130-400) K/uL MPV 9.8 (7.4-10.4) fL Immature Gran % (Auto) 0.2 % Neut % (Auto) 69.2 % Lymph % (Auto) 23.3 % [place] % (Auto) 6.5 % Eos % (Auto) 0.7 % Baso % (Auto) 0.1 % Immature Gran # (Auto) 0.02 (0.00-0.02) K/uL Neut # (Auto) 6.33 (1.4-6.5) K/uL Lymph # (Auto) 2.13 (1.2-3.4) K/uL [place] # (Auto) 0.59 (0.11-0.59) K/uL Eos # (Auto) 0.06 (0-0.5) K/uL Baso # (Auto) 0.01 (0-0.2) K/uL Sodium 138 (136-145) mmol/L Potassium 3.8 (3.5-5.1) mmol/L Chloride 106 (98-107) mmol/L Carbon Dioxide 24 (21-32) mmol/L Anion Gap 7.0 (3-11) BUN 19 H (7-18) mg/dl Creatinine 1.25 (0.6-1.4) mg/dl Est Cr Clr Drug Dosing 112.0 ml/min Est GFR ( Amer) 80.1 Est GFR (Non-Af Amer) 69.1 BUN/Creatinine Ratio 15.3 (10-20) Glucose 140 H (70-99) mg/dl Calcium 9.2 (8.5-10.1) mg/dl Total Bilirubin 0.4 (0.2-1) mg/dl AST 14 L (15-37) U/L ALT 27 (12-78) U/L Alkaline Phosphatase 71 (45-117) U/L Total Protein 8.2 (6.4-8.2) gm/dl Albumin 4.5 (3.4-5.0) gm/dl Globulin 3.7 (2.5-4.0) gm/dl Albumin/Globulin Ratio 1.2 (0.9-2) Lipase 153 (73-393) U/L Urine Color [place] Urine Appearance Cloudy A (Clear) Urine pH 5.0 (4.5-7.5) Ur Specific [place] 1.026 (1.000-1.030) Urine Protein 1+ H (Negative) Urine Glucose (UA) Negative (Negative) Urine Ketones Negative (Negative) Urine Blood 3+ H (Negative) Urine Nitrite Negative (Negative) Urine Bilirubin Negative (Negative) Urine Urobilinogen Negative (Negative) Ur Leukocyte Esterase Trace H (Negative) Urine WBC (Auto) 1-5 (0-5) /hpf Urine RBC (Auto) >30 H (0-4) /hpf U Hyaline Cast (Auto) 1-5 (0-5) /lpf U Epithel Cells (Auto) 0-5 (0-5) /lpf Urine Bacteria (Auto) 1+ H (Negative) Urine Yeast Budding A (None Prsent) Code Status & VTE Plan VTE Prophylaxis Plan VTE Prophylaxis will be ordered: Yes Supervising Physician Co-Signing Physician Notes PA Supervision Note: I personally saw and examined the patient. I verified all godfrey points and agree with ROSA Murray with the following exceptions and/or additions: Pt presented with severe rt flank pain, found to have obstructing 6 mm distal ur eteral stone. History reviewed ROS reviewed VSS NAD, obese RRR, 2/6 JOANNA at [facility] and apex CTAB no wcr Abd +BS soft NT ND Ext no edema 43 yo male here with 6 mm right ureteral stone, passed before he even got admitted to the floor. F/u with PCP and Urology as outpt for numerous stones. Some Uric acid, some calcium oxalate. Advised to seek Urology opinion on reduction of stone burden based on previous stone and urine analysis. Stable for dc to home PG Care Time/CCT Total # of Minutes Spent Total Time Spent with Patient: Total time spent is greater than 50% in coordination of care (as documented) at patient's floor/unit and/or counseling patient:
--- NOTE | 2019-05-02 17:16 | Discharge Summary ---
Date of Service May 02, 2019 Admission HPI Per Admitting Provider Mr. Ritchie is a 43 y/o male with PMHx obesity, HLD, HTN, Depression with anxiety, Nephrolithiasis, Diverticulitis s/p sigmoidectomy in 2009 who presented with right sided abd pain. He states he has a h/o kidney stones, follows with Dr. Denson and has required multiple lithotripsy procedures in the past. He developed right abd/flank pain last evening along with hematuria and dysuria. Denies fever/chills, constipation or diarrhea, nausea/vomiting, chest pain or SOB. ER course: Received multiple IV pain meds for pain control along with Ceftriaxone IV for empiric coverage. U/a was pos for blood, leuk est and bacteria. CT A/P showed 6 mm obstructing right distal ureter stone with mild to moderate hydrouretonephrosis. He was admitted for pain control and urology consult. Admission Exam Per Admitting Provider General: Resting comfortably, no acute distress. HEENT: NC/AT; PERRLA with EOMI; Hilger conjunctiva, MMM. No erythema of posterior pharynx Neck: Supple and nontender Cardiac: RRR Lungs: CTA bilaterally Abdomen: Bowel normoactive X 4; Nontender to palpation : no CVA tenderness noted on exam. Extremities: Warm. No edema present Neuro: No focal weakness Skin: No rash Principal Diagnosis Right ureter stone Discharge Exam General: Resting comfortably. HEENT: NC/AT; PERRLA with EOMI; Hilger conjunctiva, MMM. No erythema of posterior pharynx Neck: Supple and nontender Cardiac: RRR Lungs: CTA bilaterally Abdomen: Bowel normoactive X 4; Nontender to palpation : no CVA tenderness. Extremities: Warm. No edema present Neuro: No focal weakness Skin: No rash Discharge Data Allergies Allergy/AdvReac Type Severity Reaction Status Date / Time tramadol Allergy Intermediate HIVES Verified 05/02/19 12:17 Consultations 05/02/19 13:14 ED Decision to Admit Stat Ordered Studies 05/02/19 10:38 CT abd pelvis wo con Stat Hospital Course (1) Right kidney stone: CT A/P showed 6 mm obstructing right distal ureter stone with mild to moderate hydronephrosis. Received IV pain meds along with abx in the ER. Strained all urine -- pt. passed stone prior to arriving to the floor for admission. Sending stone for analysis. IV fluids at 125 cc/hr -- tachycardic on admission, likely related to dehydration in setting of poor PO intake. Zofran prn N/V; Tylenol scheduled for pain with Dilaudid IV prn. Discussed case with urology, no indication for f/u KUB; can be discharged to home. (2) UTI (urinary tract infection): U/a pos for leuk est and bacteria, UC is pending. Received Ceftriaxone 1 gm IV in the ER; will start Cipro 500 mg BID for 7 days. (3) Elevated BUN: BUN 19 -- likely related to dehydration in setting of poor PO intake. Received 2L bolus in ER; IVF at 125 cc/hr. (4) Depression with anxiety: Not currently on medications. (5) History of diverticulitis of colon: S/p sigmoidectomy in 2009. (6) Hyperlipidemia: Not currently on statin agent, discuss with PCP. (7) Hypertension: Continued home Clonidine BID as prescribed. Held home ACEI and HCTZ. (8) Mitral regurgitation: Noted in 2018; pt. will be evaluated by park keeper next week in clinic. (9) Overweight: BMI 38.2 - encouraged weight loss and exercise. Discharged to home on 05/02/19. Total Time Total Time Spent Total Time Spent (In Minutes): >30 minutes Total Time Includes: Examination of the Patient, Discharge Planning, Medication Reconciliation, Communication With Other Providers and Other Discharge Plan Discharge Items Patient Disposition: Home - Self-Care Reason For Visit: RIGHT URETER STONE Discharge Diagnosis: Right ureter stone Goals: You have been hospitalized for an acute medical problem. During your stay at [facility], we have made an effort to correct the problem that brought you to the hospital while keeping you as comfortable as possible. Medications were used to bring your condition under control and your discharge instructions will include directions for any medications you should take after leaving the hospital. Please make sure you see your Primary Care Provider as part of your follow up plan. Activity: As commented below Non-emergency contact: Primary Care Provider Call non-emergency contact if: you have any medication questions, your symptoms worsen, your pain is not controlled, your pain is worsening, your pain is unusual for you, your pain is concerning for you and you have a fever Follow-up/Referrals: BalVitaliy Lange MD [Primary Care Provider] - Diet: Heart Healthy Addtl Attending Provider Instructions: 1. Right ureter stone * S/p passage of stone. * Please f/u with PCP in 1-2 weeks to discuss this hospital admission. * Drink plenty of fluids at home - at least 8-10 glasses of water per day. 2. UTI * Urinalysis was positive for infection; Urine culture is pending. * Please take Ciprofloxacin 500 mg twice daily for treatment of infection. Pending Studies at Discharge: Yes Studies:: Urine culture Stand-Alone Forms: My [facility] Medications and DC Order Prescriptions: New ciprofloxacin HCl [Cipro] 500 mg tablet 500 mg PO BID 7 Days Qty: 14 RF: 0 Continued enalapril maleate 20 mg tablet 20 mg PO BID Qty: 180 RF: 1 atorvastatin [Lipitor] 80 mg tablet 80 mg PO DAILY Qty: 90 RF: 3 clonidine HCl 0.1 mg tablet 1 tab PO BID RF: 0 hydrochlorothiazide 25 mg tablet 25 mg PO QAM RF: 0 gemfibrozil 600 mg tablet 600 mg PO BID RF: 0 Discontinued carvedilol 6.25 mg tablet 6.25 mg PO BID Qty: 180 RF: 0 Discharge Orders: Discharge Order (Routine); Ordered 05/02/19 Ordered By: Shira Murray Admission Data Admit Date/Time: 05/02/19 14:15 Attending Provider: Cindy Pereira Admit Provider: Shira Murray Primary Care Provider: Vitaliy Hoffman V. Other Providers: Mariana Leyva Other Interventions: Discharge Summary Assessment (RN) Last Done: 05/02/19 18:13 Supervising Physician Co-Signing Physician Notes PA Supervision Note: I personally saw and examined the patient. I verified all godfrey points and agree with ROSA Murray with the following exceptions and/or additions: Pt presented with severe rt flank pain, found to have obstructing 6 mm distal ureteral stone. History reviewed ROS reviewed VSS NAD, obese RRR, 2/6 JOANNA at [facility] and apex CTAB no wcr Abd +BS soft NT ND Ext no edema 43 yo male here with 6 mm right ureteral stone, passed before he even got admitted to the floor. F/u with PCP and Urology as outpt for numerous stones. Some Uric acid, some calcium oxalate. Advised to seek Urology opinion on reduction of stone burden based on previous stone and urine analysis. Stable for dc to home
[2019-05-02] MEDS ORDERED: ACETAMINOPHEN 325 MG TAB PO SCH (18:00)
[2019-05-02] MEDS ORDERED: gemfibroziL 600 MG TAB PO SCH (21:00)
[2019-05-02] MEDS ORDERED: cloNIDine HCL 0.1 MG TAB PO SCH (21:00)
[2019-05-03] MEDS ORDERED: ATORVASTATIN 40 MG TAB PO SCH (09:00)
[2019-05-03] MEDS ORDERED: cefTRIAXone SODIUM 2,000 MG in DEXTROSE 5% 50 ML IV SCH (09:00)
== END 2019-05-02 18:37 | disposition home or self-care (01) ==
LOC: ED 10:07 → INTOOBSV 14:15 → 2W 14:15

== ENCOUNTER 2019-06-21 08:21 | Observation (INO) ==
[2019-06-21] MEDS ORDERED: fentaNYL citrate 100 MCG/2 ML VIAL ONE ×2 (09:12→11:49)
[2019-06-21] MEDS ORDERED: NiCARDipine HCL INJ 2.5 MG/ML 10 ML AMP ONE ×2 (09:12→11:49)
[2019-06-21] MEDS ORDERED: HEPARIN (PORCINE) 1000 UNIT/ML 10 ML (CATH LAB USE ONLY) ONE ×2 (09:12→11:49)
[2019-06-21] MEDS ORDERED: MIDAZOLAM HCL 1 MG/ML 2ML VIAL ONE ×4 (09:13→13:53)
[2019-06-21] MEDS ORDERED: NITROGLYCERIN/D5W 100MCG/ML 20ML SYR ONE ×2 (09:13→11:50)
--- NOTE | 2019-06-21 09:32 | Pre Anesthesia Assessment ---
Date of Service June 21, 2019 Pre Sedation Assessment Vital Signs Temp Pulse Resp BP Pulse Ox 06/21/19 08:46 36.8 C 77 18 131/89 95 Cardiovascular RRR, no murmur, no edema Respiratory normal respiratory effort, lungs clear to auscultation Pre-Sedation Airway Assessment Smoking Status: Never smoker Hx Sleep Apnea: No Short, Thick Neck: No Thyromental Distance: > or= 3.5 Finger Breadths Oral Cavity: + WNL Mallampati Class: II ASA: ASA3 NPO Status Date of Last Intake of Fluids: 06/20/19 Time of Last Intake of Fluids: 19:00 Date of Last Intake of Solid Food: 06/20/19 Time of Last Intake of Solid Foods: 19:00 Procedure Planning Contraindications for Sedation: none Current Medications Reviewed: Yes Notes The planned sedation has been discussed with the patient. Informed Consent was obtained. I have identified the patient, determined the appropriateness of sedation and have assessed the patient immediately prior to the procedure. All medicine(s) and interventions are by my order.
--- NOTE | 2019-06-21 09:32 | History & Physical Bridge Note ---
Date of Service June 21, 2019 History & Physical Bridge Note I have examined the patient, reviewed the History & Physical and in the interval since the performance of the History & Physical I have noted the following changes of clinical significance: no changes noted
--- NOTE | 2019-06-21 13:23 | Cardiac Catheterization ---
[facility] Data: Filer Metal Patterns Cardiac Status Clinical evaluation leading to the procedure CAD Presenation: Positive Stress Test and Stable angina Anginal Classification: CCS IV Heart Failure: No Cardiogenic Shock within 24 Hours: No Cardiac Arrest within 24 Hours: No Imaging Studies Past 6 Months: Yes Stress Studies Past 6 Months: Yes Standard Exercise Test: No Stress Echocardiogram: Yes - Positive and Risk/Extent of Ischemia (High) Stress Testing w/SPECT MPI: No Cardiac CTA: No Coronary Anatomy Dominant: Right Left Ventricular Angiography EF (%): 60-65 Wall Motion: Anterior (Normal), Apical (Normal) and Inferior (Normal) Mitral Regurgitation: None Diagnostic Physicians Name: Francisco Sanchez MD Status: Elective Closure Device Percutaneous Entry Location: Radial Recommendations: PCI without planned CABG Cardiac Cath Procedure Full Procedure Date June 21, 2019 Pre-Procedure Diagnosis Pre-Procedure Diagnosis: Angina and Positive Stress Test AUC Score AUC Score: 9 Post-Procedure Diagnosis Post-Procedure Diagnosis: Severe CAD and Normal Intracardiac Pressures Procedure(s) Performed Procedure(s) Performed: Coronary Angiography, Left Heart Cath and LV Angiography Die Repairer Stamping Francisco Sanchez MD Senior Front End Engineer(s) Stephen Barragan Estimated Blood Loss Estimated Blood Loss: < 25 ml Medication(s) Medication(s): Fentanyl, Heparin, Lidocaine 1%, Nicardipine and Versed Summary of Findings Procedures: 1. Coronary angiography 2. Left heart catheterization 3. Left ventriculography 4. Moderate sedation Coronary geography: 1. L main coronary artery: LMCA is without significant CAD. 2. Left anterior descending: The LAD is a large-caliber vessel. Mid LAD sequential 70 to 80% and 60 to 70% stenotic lesions. At the bifurcation of medium caliber D2, the late mid LAD has a 95 to 99% stenosis with AWILDA I flow. The LAD appears to be smaller in caliber distal to this lesion. There is a very small caliber D1 with proximal 70 to 80% stenosis. Medium caliber D2 with mid 100% stenosis. Distal D2 fills via left to left collaterals. 3. Circumflex: The circumflex is a large-caliber proximally. The distal circumflex is small in caliber and has 60 to 70% stenosis. Small caliber OM1 with diffuse severe CAD distally. Large OM 2 without significant CAD. 4. Right coronary artery: The RCA is large and dominant. Distal PDA 90 to 95% stenosis with AWILDA-3 flow. Remainder of RCA and PL without significant CAD. Faint right to left collaterals to the LAD. Left heart catheterization: 1. Left ventriculography was performed in the SANTILLAN position. 2. Normal LV systolic function with EF estimated 60 to 65%. 3. Normal wall motion. 4. No significant mitral regurgitation. 5. Normal LVEDP; 9 mmHg. 6. No aortic stenosis. Moderate sedation: 1. Sedation start time: 12:19 PM 2. Sedation end time: 12:53 PM Procedural details: 1. Diagnostic coronary angiography was performed via the right radial artery with 5 Azerbaijani JL 3.5 and JR4 diagnostic catheters. Left ventriculography was performed with 5 Azerbaijani angled pigtail. 2. Prior to angiography, there was asymptomatic hypotension for which fluid bolus 500 mL of normal saline was given, with improvement of blood pressure. Impression: 1. Severe CAD involving LAD. 2. Severe branch vessel disease including PDA, D2, and then small caliber D1, OM1, and distal circumflex. 3. No aortic stenosis. 4. No mitral regurgitation. 5. Normal LVEDP. Plan: 1. Images were reviewed with Dr. Ramos of interventional cardiology who plans on attempting PCI of LAD. 2. Optimize medical therapy for small branch vessel disease. 3. Continue to follow with Dr. Alcantara, primary special educator. Hemodynamics Rest Ao:: 81/55 Final Ao: 90/56 LV: 89/2/9 Recommendations Recommendations: PCI without planned CABG Specimens Specimens: None Radiation Exposure (mGy) 1752 mGy. Flouro time 6.7 min. Contrast (mls) 67 ml Procedural Complication(s) None Disposition remains in laboratory scientist for PCI I attest to the content of the Intraoperative Record and any orders documented therein. Any exceptions are noted below. CallmyNameG Card Cath Procedure Codes Cardiac Catheterization Procedure 1: Cardiovascular Cath Procedures: 81010 Coronaries and LHC (+/-LV) Moderate Sedation Procedure 1: Sedation/Anesthesia: 43852 Mod Sedation by the same physician;Init15 Min Child Age 5 & Up Procedure 2: Sedation/Anesthesia: 13587 Mod Sedation by the same physician; Ea [id number] Minutes PG Care Time/CCT Total # of Minutes Spent Total Time Spent with Patient: Total time spent is greater than 50% in coordination of care (as documented) at patient's floor/unit and/or counseling patient:
[2019-06-21] MEDS ORDERED: CLOPIDOGREL BISULFATE 300 MG TAB ONE (14:36)
--- NOTE | 2019-06-21 14:44 | Post Anesthesia Assessment ---
Date of Service June 21, 2019 Post Sedation Assessment Vital Signs Temp Pulse Resp BP Pulse Ox 06/21/19 08:46 98.2 F 77 18 131/89 95 Recovery Score Activity: Moves 4 extremities Respiration: Deep Breath/Cough Circulation: +/-20% PreAnes Value Consciousness: Fully Awake Oxygen Saturation: O2 needed for >90% Discharge Sedation Level of Care: Fast Track Phase II Post Sedation Plan On clinical assessment, the patient appears to have tolerated the sedation without complications. Patient is recovering as anticipated. Patient will continue to be monitored by nursing and may be discharged when sedation discharge criteria are met per below protocol. Upon Completions of procedure up to 15 minutes continue every 5 minute vital signs and the P.A.R. score; then discharge to a Phase I or Fast Track to Phase II per the following guidelines: * Discharge Patient to appropriate Phase II area if PAR is 8 or greater or return to pre- procedure baseline. The post - procedure orders will be as directed. * If PAR score is less than 8 or not return to pre-procedure baseline then patient will follow Phase I monitoring till PAR is reached for Phase II. The Phase I may be done in procedure room or may call to secure a Phase I area. * If naloxone or flumazenil are used for reversal, hold in Phase I for continued monitoring from when last reversal dose was given for a minimum of 60 minutes or longer pending the nurse and/or physician discretion of patient condition before discharge to Phase II. Please call the Sedation Physician to re-evaluate and complete post-note for discharge to Phase II area. Do NOT discharge from procedure sedation or Phase 1 until post- sedation evaluation note is complete by procedure /sedation MD Sedation Discharge Instructions to be given to the patient at discharge to home.
[2019-06-21] MEDS ORDERED: ONDANSETRON INJ 2 MG/ML 2 ML VIAL IV PRN (14:47)
[2019-06-21] MEDS ORDERED: NITROGLYCERIN SL 0.4 MG/TAB TAB SL PRN (14:47)
--- NOTE | 2019-06-21 14:47 | Cardiac Catheterization ---
[facility] Data: Med Surg Nurse Cardiac Status Clinical evaluation leading to the procedure CAD Presenation: Positive Stress Test Anginal Classification: CCS III Heart Failure: No Cardiogenic Shock within 24 Hours: No Cardiac Arrest within 24 Hours: No Imaging Studies Past 6 Months: Yes Stress Studies Past 6 Months: Yes Stress Echocardiogram: Yes - Positive (high) Diagnostic Physicians Name: Case Ramos MD Status: Elective Closure Device Percutaneous Entry Location: Radial Closure Device: Radial Band Recommendations: PCI without planned CABG PCI Indication: + Stress Test Lesion Segment Name: mid LAD Culprit Artery: Yes Stenosis Prior to Rx (%): 95 Chronic Total Occlusion: No IVUS: Yes FFR: No Pre-Procedure AWILDA Flow: 1 Previously Treated Lesion: No Lesion Complexity: High/C Lesion Length (mm): 50 Thrombus Present: No Bifurcation Lesion: Yes Guidewire Across Lesion: Stenosis Post-Procedure (%): 0 Post-Procedure AWILDA Flow: 3 Devices(s) Deployed: Yes Yes Intraprocedure Events Significant Disection: No Perforation: No Cardiac Cath Procedure Full Procedure Date June 21, 2019 Pre-Procedure Diagnosis Pre-Procedure Diagnosis: Angina and Positive Stress Test AUC Score AUC Score: 8 Post-Procedure Diagnosis Post-Procedure Diagnosis: Severe CAD and Successful PCI Procedure(s) Performed Procedure(s) Performed: Coronary Angiography, Drug Eluting Stent and IVUS Gas Turbine Powerplant Mechanic Helper Case Ramos MD Automatic Developer(s) Stephen Barragan Estimated Blood Loss Estimated Blood Loss: < 25 ml Medication(s) Medication(s): Clopidogrel, Fentanyl, Heparin, Nicardipine, Nitroglycerin and Versed Summary of Findings Indication: Accelerating angina, abnormal stress test Access: 6 Fr slender right radial artery Catheters: EBU 3.5 guide Findings: For full details of patient's coronary angiography please cath report dictated by Dr. Sanchez. Briefly, patient found to have severe multi-vessel disease including sequential severe disease involving his mid LAD. Decision to proceed with PCI. -- PCI -- Antithrombotic therapy: Heparin, clopidogrel Procedure: Left main cannulated with EBU 3.5 guide Plumber 50 wire passed across lesion into distal vessel BMW wire placed into second diagonal Mid LAD lesions predilated with 2.5 compliant balloon IVUS used to assess length of disease, degree of calcification and for vessel sizing. 2.5 x 26 mm Sancho drug-eluting stent placed to mid LAD across takeoff of second diagonal Second diagonal rewired with sdv pilot/navigator/dds operator 50 wire Ostium of diagonal, stent struts dilated with 2.0 balloon Mid LAD stented with 4.0 x 30 mm Sancho TIMOTHY overlapping with proximal aspect of initial stent Second diagonal rewired with sdv pilot/navigator/dds operator 50 wire Ostium of diagonal, stent postdilated with 3.0 balloon LAD stents postdilated with 3.0, 4.0 NC balloons Residual narrowing, dissection at ostium of second diagonal stented with 3.0 x 12 mm Doswell TIMOTHY Repeat IVUS showed well-expanded LAD and diagonal stents IC vasodilators administered for spasm Post procedure AWILDA 3 flow, stents well expanded with minimal residual stenosis and no apparent cardiac complications. Arterial Closure: TR band Summary: 1. Successful PCI of mid LAD and second diagonal bifurcation with 3 total Doswell drug-eluting stents (2 overlapping to LAD 4.0 x 30, 2.5 x 26, 1 to ostial diagonal 3.0 x 12). Recommendations: To PCU for continued monitoring Loaded with clopidogrel 600 mg in Med Surg Nurse Continue dual-antiplatelet therapy for at least 6 months, likely extended in the setting of bifurcating stents Continue statin, and ASCVD risk factor modification Consult cardiac Rehab Hemodynamics Rest Ao:: 79/49/58 Final Ao: 81/61/71 LV: -- Recommendations Recommendations: PCI without planned CABG Specimens Specimens: None Radiation Exposure (mGy) 6771 Contrast (mls) 180 Fluids (cc crystalloids) Fluids (cc crystalloids): 250 Drains Drains: None Anesthesia Moderate Procedural Complication(s) None Disposition PCU I attest to the content of the Intraoperative Record and any orders documented therein. Any exceptions are noted below. [facility] Card Cath Procedure Codes Therapeutic Services & Ancillary Proc Procedure 1: Cardiovascular Tx and Anc Procedures: 06004 IV Ultrasound (Coronary or Graft) Moderate Sedation Procedure 1: Sedation/Anesthesia: 44148 Mod Sedation by a different physician ;Init15 Min Child Age 5&Up Procedure 2: Sedation/Anesthesia: 10030 Mod Sedation by a different physician;Ea Additional 15 Minutes Stenting Procedure 1: Cardiovascular Stent Procedures: 70316 Perc transcatheter placement of intracoronary stent(s), with ang Procedure 2: Cardiovascular Stent Procedures: 44610 Ea addl branch of a major coronary artery PG Care Time/CCT Total # of Minutes Spent Total Time Spent with Patient: Total time spent is greater than 50% in coordination of care (as documented) at patient's floor/unit and/or counseling patient:
[2019-06-21] MEDS ORDERED: SODIUM CHLORIDE 0.9% 1000ML 1,000 ML IV SCH (15:00)
[2019-06-21] MEDS: gemfibroziL 600 MG TAB PO SCH (17:37)
[2019-06-21] MEDS: ENALAPRIL MALEATE 10 MG TAB PO SCH (21:10)
--- NOTE | 2019-06-22 06:30 | Electrocardiogram Report ---
Test Reason : Blood Pressure : / mmHG Vent. Rate : 067 BPM Atrial Rate : 067 BPM P-R Int : 160 ms QRS Dur : 086 ms QT Int : 384 ms P-R-T Axes : 022 -02 005 degrees QTc Int : 405 ms Normal sinus rhythm When compared with ECG of 02-MAY-2019 11:53, No significant change was found Confirmed by Francisco Sanchez ([id number]) on 06/22/2019 6:29:38 AM Referred By: Bernardino Alcantara Confirmed By:Francisco Sanchez
[2019-06-22 06:42] LABS: Eosinophils # (auto) 0.13 K/uL (0-0.5); Eosinophils % (auto) 1.7 %; Hematocrit (blood only) 36.9 % (42-52); Hemoglobin 12.1 g/dL (14.0-18.0); Immature Granulocytes # (auto) 0.02 K/uL (0.00-0.02); Immature Granulocytes % (auto) 0.3 %; Lymphocytes # (auto) 1.95 K/uL (1.2-3.4); Lymphocytes % (auto) 25.2 %; Mean Corpuscular Hemoglobin 31.2 pg (25-34); Mean Corpuscular Hgb Conc 32.8 g/dL (32-36); Mean Corpuscular Volume 95.1 fL (80-100); Mean Platelet Volume 9.8 fL (7.4-10.4); Monocytes # (auto) 0.72 K/uL (0.11-0.59); Monocytes % (auto) 9.3 %; Neutrophils # (auto) 4.92 K/uL (1.4-6.5); Neutrophils % (auto) 63.5 %; Platelet Count 230 K/uL (130-400); RDW Coefficient of Variation 14.4 % (11.5-14.5); RDW Standard Deviation 50.1 fL (36.4-46.3); Red Blood Count 3.88 M/uL (4.7-6.1); White Blood Count 7.74 K/uL (4.8-10.8)
[2019-06-22 07:13] LABS: BUN Creatinine Ratio 16.3 (10-20); Calcium 9.1 mg/dl (8.5-10.1); Est GFR (African American) 87.7; Est GFR (Non-African American) 75.6; Potassium 3.9 mmol/L (3.5-5.1)
[2019-06-22] MEDS: gemfibroziL 600 MG TAB PO SCH (07:31)
[2019-06-22] MEDS: ENALAPRIL MALEATE 10 MG TAB PO SCH (08:25)
--- NOTE | 2019-06-22 08:59 | Discharge Summary ---
Date of Service June 22, 2019 Admission HPI Per Admitting Provider Mr. Ritchie presented to [facility] on 06/21/2023 elective outpatient cardiac catheterization for chest pain and abnormal dobutamine stress echo suggesting LAD ischemia. His primary apprentice cook is Dr. Alcantara. Diagnostic cardiac catheterization demonstrated multivessel CAD including severe sequential mid LAD stenotic lesions. He also had severe branch vessel disease, some of which were in vessels that were too small for intervention. Dr. Ramos of interventional cardiology then performed PCI of mid LAD with 2.5 x 26 mm [place] and 4 x 30 mm [place] drug-eluting stents. There was residual stenosis within the ostial D2 with dissection following PCI of the LAD at the bifurcation site. Ostial D2 stent 3 x 12 mm [place] was then placed. He tolerated the procedure well and was admitted for observation following PCI. During the cardiac catheterization, he also had left ventriculography which demonstrated no significant mitral regurgitation and a normal LV systolic function with an estimated EF of 60 to 65%. Principal Diagnosis 1. Severe multivessel CAD Discharge Exam Gen.: No acute distress. Alert and oriented. HEENT: Anicteric sclera. Neck: No JVD, but thick neck. Cardiac: No ventricular heave. Regular rate and rhythm. Normal S1-S2. No murmurs, rubs, or gallops. Pulmonary: Clear to auscultation bilaterally without wheezes, rales, or rhonchi. Abdomen: Soft, nontender, nondistended, with normoactive bowel sounds. No bruits noted. Extremities: 1+ radial pulses bilaterally. Right radial cath site is clean, dr y, and intact without erythema or discharge. No edema or cyanosis. Psychiatric: Affect appears appropriate. Discharge Data Allergies Allergy/AdvReac Type Severity Reaction Status Date / Time tramadol Allergy Intermediate HIVES Verified 06/12/19 14:14 Consultations 06/21/19 14:51 Consult Cardiac Rehabilitation Routine Procedures Performed Operation Date: 06/21/19 09:30 Actual Procedures s Cineradiography w/Routine Exam - Francisco Sanchez MD s Drug Eluting Stent SGl Vessel - Leon Ramos MD s Drug Eluting Stent each ADDTL Vessel - Leon Ramos MD p Cath, Left with Cors and Vent - Francisco Sanchez MD s IVUS Coronary Single Vessel - Leon Ramos MD Cardiac cath 06/21/2019: Coronary geography: 1. Left main coronary artery: LMCA is without significant CAD. 2. Left anterior descending: The LAD is a large-caliber vessel. Mid LAD sequential 70 to 80% and 60 to 70% stenotic lesions. At the bifurcation of medium caliber D2, the late mid LAD has a 95 to 99% stenosis with AWILDA I flow. The LAD appears to be smaller in caliber distal to this lesion. There is a very small caliber D1 with proximal 70 to 80% stenosis. Medium caliber D2 with mid 100% stenosis. Distal D2 fills via left to left collaterals. 3. Circumflex: The circumflex is a large-caliber proximally. The distal circumflex is small in caliber and has 60 to 70% stenosis. Small caliber OM1 with diffuse severe CAD distally. Large OM 2 without significant CAD. 4. Right coronary artery: The RCA is large and dominant. Distal PDA 90 to 95% stenosis with AWILDA-3 flow. Remainder of RCA and PL without significant CAD. Faint right to left collaterals to the LAD. Left heart catheterization: 1. Left ventriculography was performed in the SANTILLAN position. 2. Normal LV systolic function with EF estimated 60 to 65%. 3. Normal wall motion. 4. No significant mitral regurgitation. 5. Normal LVEDP; 9 mmHg. 6. No aortic stenosis. PCI of LAD and D2 on 06/21/[address] Ramos: Mid LAD 2.5 x 26 mm Sancho, mid LAD 4 x 30 mm Sancho, ostial D2 3 x 12 mm Sancho Telemetry personally viewed: No arrhythmia. Ordered Studies 06/21/19 06:44 CL Cath Imgs for PACS use only Routine Hospital Course (1) CAD (coronary artery disease): (2) S/P coronary artery stent placement: (3) Mitral regurgitation: (4) Hypertension: (5) Hyperlipidemia: ASSESSMENT/PLAN: 1. CAD s/p PCI x 3: As an outpatient had chest discomfort with abnormal stress echo suggesting LAD ischemia. He underwent PCI x3, 2 of which within the mid LAD and 1 with in the ostial D2. He tolerated the procedure well. Has not had any angina or heart failure symptoms while hospitalized. Continue aspirin 81 mg daily indefinitely. Continue Plavix 75 mg daily for at least 6 months, but preferably a year. Continue high intensity statin therapy. Continue beta- sarah. Nitroglycerin as needed chest pain. Call 911 for angina does not resolve within 5 minutes of nitroglycerin. 2. Mitral regurgitation: No severe mitral regurgitation noted on left ventriculography. 3. Hypertension: Blood pressure well controlled. No changes made to his antihypertensive regimen. 4. Dyslipidemia: Continue high intensity statin therapy. 5. Disposition: Can be discharged home today after ambulating in the hallway. Follow-up with Dr. Alcantara as scheduled next week. Total Time Total Time Spent Total Time Spent (In Minutes): 43 Total Time Includes: Examination of the Patient, Discharge Planning and Medication Reconciliation Discharge Plan Discharge Items Patient Disposition: Home - Self-Care Reason For Visit: CAD Discharge Diagnosis: Coronary artery disease. Stents were placed within Left anterior descending artery. Activity: Per Instructions section Non-emergency contact: Gym Attendant Call non-emergency contact if: you have any medication questions, your pain is concerning for you and your wound has increased redness Follow-up/Referrals: Vitaliy Hoffman MD [Primary Care Provider] - 06/29/19 11:20 am Diet: Heart Healthy Add Attending Provider Instructions: ACTIVITY RECOMMENDATIONS: Excess manipulation of the wrist should be avoided for the next 24-48 hours. * No lifting over 2 pounds (approximately a 1/2 gallon of milk) with the utilized arm for 24 hours. * No strenuous activity such as bowling or tennis for 3 days. * Keep the site of the procedure covered with a bandage for 24 hours. *You may shower the day after the procedure. Do not take a tub bath or submerge the puncture site in water for the next 3 days. *Do not operate any motorized equipment for 3 days. SPECIAL CARE INSTRUCTIONS: The site may be slightly bruised and sore following your procedure. Should any of the following occur, contact the Dr. who performed your procedure. 1. Redness/inflammation, swelling, chills, or fever, or colored drainage at procedure site within 3-7 days after your procedure. 2. Coldness, discoloration, ongoing numbness, severe pain, or swelling. Expect mild tingling of hand and tenderness at the puncture site for up to three days. If this persists beyond three days, or other symptoms develop, notify the DrSumit who performed your procedure. BLEEDING: If the procedure site on your wrist begins to bleed, do not panic 1. Place 1 or 2 fingers firmly just slightly above the insertion site to stop the bleeding. You may be able to feel your pulse as you hold pressure. 2. Lift your finger after 5 minutes to see if the bleeding has stopped. 3. Once the bleeding has stopped, gently wipe the wrist area clean with a bandage. * If the bleeding from your wrist does not stop after 10 minutes, or if there is a large amount of bleeding or spurting, call 911 (do not drive yourself to the hospital). SKIN IRRITATION: * You may experience some redness and/or swelling in the area where radiation was administered. If any skin irritation occurs, please contact your family physician. FOLLOW UP VISIT: 1. Follow up with Dr. Alcantara next week as previously scheduled. Call his office at [phone] with any questions/concerns. 2. Keep any scheduled doctor appointments. Pending Studies at Discharge: No Stand-Alone Forms: My [facility], Smoking Cessation Medications and DC Order Prescriptions: New clopidogrel 75 mg Tablet 75 mg PO QAM Qty: 90 RF: 3 nitroglycerin [Nitrostat] 0.4 mg Tablet, Sublingual 0.4 mg sublingual PRN PRN (Reason: chest pain) Qty: 25 RF: 2 Continued enalapril maleate 20 mg tablet 20 mg PO BID Qty: 180 RF: 1 metoprolol succinate 100 mg tablet extended release 24 hr 100 mg PO DAILY Qty: 90 RF: 3 aspirin [Adult Low Dose Aspirin] 81 mg tablet,delayed release (DR/EC) 81 mg PO DAILY Qty: 90 RF: 3 clonidine HCl 0.1 mg tablet 1 tab PO BID RF: 0 hydrochlorothiazide 25 mg tablet 25 mg PO QAM RF: 0 atorvastatin [Lipitor] 80 mg tablet 80 mg PO QAM RF: 0 gemfibrozil 600 mg tablet 600 mg PO BID RF: 0 Discharge Orders: Discharge Order (Routine); Ordered 06/22/19 Ordered By: Francisco Sanchez Admission Data Admit Date/Time: 06/21/19 14:47 Attending Provider: Leon Ramos Admit Provider: Leon Ramos Primary Care Provider: Vitaliy Hoffman V. Coding Level of Care Code 82535 OBS Care - Discharge Diagnoses CAD (coronary artery disease) I25.10 S/P coronary artery stent placement Z95.5 Mitral regurgitation I34.0 Hypertension I10 Hyperlipidemia E78.5
[2019-06-22] MEDS ORDERED: ENOXAPARIN INJ 40 MG/0.4 ML SYR SQ SCH (09:00)
[2019-06-22] MEDS ORDERED: ASPIRIN 81 MG ECTAB PO SCH (09:00)
[2019-06-22] MEDS ORDERED: METOPROLOL SUCC 50MG EXT REL TAB PO SCH (09:00)
[2019-06-22] MEDS ORDERED: hydroCHLOROthiazide 25 MG TAB PO SCH (09:00)
[2019-06-22] MEDS ORDERED: CLOPIDOGREL BISULFATE 75 MG TAB PO SCH (09:00)
[2019-06-22] MEDS ORDERED: ATORVASTATIN 40 MG TAB PO SCH (09:00)
== END 2019-06-22 09:25 | disposition home or self-care (01) ==
LOC: CC 08:21 → 2E 08:21

== ENCOUNTER 2023-04-25 20:47 | Inpatient (IN) ==
[2023-04-25] MEDS ORDERED: ONDANSETRON INJ 2 MG/ML 2 ML VIAL IV STA ×2 (20:57→21:56)
[2023-04-25 21:48] LABS: Appearance Urine Cloudy (Clear); Bacteria Urine Automated Negative (Negative); Bilirubin Urine Negative (Negative); Blood Urine Trace (Negative); Color Urine Dark Yellow; Glucose Urine UA Negative (Negative); Ketones Urine Trace (Negative); Leukocyte Esterase Urine Negative (Negative); Nitrite Urine Negative (Negative); Protein Urine 1+ (Negative); Specific Gravity Urine 1.025 (1.000-1.030); Urobilinogen Urine Negative (Negative)
[2023-04-25 21:54] LABS: Basophils # (auto) 0.02 K/uL (0.00-0.20); Basophils % (auto) 0.2 %; Eosinophils # (auto) 0.05 K/uL (0.00-0.50); Eosinophils % (auto) 0.6 %; Hemoglobin 13.6 g/dl (14.0-18.0); Immature Granulocytes # (auto) 0.02 K/uL (0.01-0.20); Immature Granulocytes % (auto) 0.2 %; Lymphocytes # (auto) 1.58 K/uL (1.20-3.40); Lymphocytes % (auto) 18.5 %; Mean Corpuscular Hemoglobin 29.6 pg (25.0-34.0); Mean Platelet Volume 9.9 fL (9.4-12.4); Monocytes # (auto) 0.71 K/uL (0.11-0.59); Monocytes % (auto) 8.3 %; Neutrophils # (auto) 6.17 K/uL (1.40-6.50); Neutrophils % (auto) 72.2 %; Platelet Count 213 K/uL (130-400); RDW Coefficient of Variation 12.1 % (11.5-14.5); RDW Standard Deviation 38.5 fL (36.4-46.3); White Blood Count 8.55 K/ul (4.8-10.8)
[2023-04-25 21:55] LABS: Albumin Globulin Ratio 1.2 (0.9-2); Albumin Level 4.3 gm/dl (3.4-5.0); BUN Creatinine Ratio 10.3 (10-20); Bilirubin,Total 0.8 mg/dl (0.2-1.0); Calcium 9.4 mg/dl (8.6-10.3); Creatinine Clr Calc Pharmacy 84.4 ml/min; Est GFR (African American) 59.6 ml/min; Est GFR (Non-African American) 51.4 ml/min; Globulin 3.7 gm/dl (2.5-4.0); Potassium 3.8 mmol/L (3.5-5.1)
[2023-04-25] MEDS ORDERED: SODIUM CHLORIDE 0.9% 1,000 ML IV ONE (21:56)
[2023-04-25] MEDS ORDERED: fentaNYL citrate PF 100 MCG/2 ML VIAL IV STA (21:56)
--- NOTE | 2023-04-25 21:58 | Emergency Department Note ---
Impression & Plan Intractable nausea and vomiting, Acute right flank pain, Calculus of right ureter, Hydronephrosis of right kidney ED Provider Note HISTORY OF PRESENT ILLNESS: Patient is a 47-year-old male presenting with right flank pain and vomiting. Patient reports that he has been unable to tolerate anything by mouth except a few sips of liquid for the last 4 days. Reports has been having increasing pain in his right posterior back that wraps around his right flank. He was diagnosed with a 6 mm kidney stone 4 days ago. Reports has been taking the prescribed pain medication with little relief in symptoms. Denies any measured fevers at home. Denies any dysuria or hematuria. ROS: as above PHYSICAL EXAM: Constitutional: Patient appears in no acute distress. HENT: Head: Normocephalic and atraumatic. Eyes: EOMI, PERRL Mouth/Throat: Mucous membranes moist. Neck: Trachea midline. Neck supple. Cardiovascular: Tachycardic with regular rhythm. No murmurs, rubs or gallops. Intact distal pulses. Pulmonary/Chest: No respiratory distress. Breath sounds clear and equal bilaterally. No wheezes or rales. Abdominal: Abdomen soft, no tenderness, rebound or guarding. Back: No midline spinal tenderness, no paraspinal tenderness, no CVA tenderness. Musculoskeletal: No edema, tenderness or deformity noted. Skin: Warm and dry. No rash, erythema, pallor or cyanosis Psychiatric: Appropriate mood and affect for situation. Neurological: Alert and keenly responsive. CN II-XII grossly intact, moving all extremities equally and fully. MDM: - Vitals signs showed tachycardia. - History obtained via patient. Patient presents with right flank pain and vomiting. Patient reports he been unable to tolerate anything by mouth for the last 4 days secondary to right flank pain and vomiting. Patient was diagnosed with a 6 mm kidney stone 4 days ago. Denies any fevers. - Chronic conditions affecting care: HTN; CAD (s/p PCI); HLD - Differential diagnoses include, but are not limited to: UTI; pyelonephritis; ureteral stone; diverticulitis; colitis - Order placed for continuous cardiac monitoring. At this time, monitor showed rate of 94 bpm with normal sinus rhythm, per my interpretation. - External medical records reviewed. - Laboratory workup interpreted by myself showed normal WBC; slight hyponatremia (Na 134); elevated creatinine (Cr 1.56) - UA negative for infection. - CT abdomen/pelvis wo contrast showed 7 mm stone in the distal right ureter that is within a centimeter of the UVJ. Noted to have mild hydronephrosis and hydroureter. - Patient was given 1L NS, 4 mg IV zofran and 50 mcg IV fentanyl. On reassessment, he is still complaining of pain and nausea. Given 4 mg IV zofran and 30 mg IV toradol. - Discussion was had with emergency care tech about patient's case and need for admission - Hospitalist consulted for admission - [facility] for further evaluation and management. ASSESSMENT AND PLAN: Diagnosis: Intractable nausea and vomiting; right flank pain; right ureteral stone; right-sided hydronephrosis Plan: Admit Past Med/Surg History Medical History (Updated 04/26/23 @ 00:23 by Vanessa Ross MD) Ureterolithiasis Acute URI of multiple sites Pain of left clavicle On anticoagulant therapy plavix daily Hyperlipidemia Cardiac murmur CAD (coronary artery disease) s/p cardiac cath 06/21/19 for abnormal DSE. TIMOTHY to mid LAD across origin of 2nd diagonal. TIMOTHY to Mid LAD overlapping with the proximal aspect of the initial stent. Residual narrowing and dissection noted at the ostium the 2nd diagonal. This was stented with a 3 x 12 mm [place] drug-eluting stent. Abnormal dobutamine stress echocardiogram Elevated BUN History of diverticulitis of colon reason for scheduled Colonoscopy 10/03/2019 Lumbago Facet syndrome, lumbar Heart murmur Mild MR per 2018 echo Osteoarthritis Hypertension follows with Dr. Alcantara Kidney stones HISTORY OF MANY TIMES Surgical History History of cardiac cath 06/21/2019 @ [facility]---3 TIMOTHY stents placed by Dr[address] Ramos Status post arthroscopy of hip left History of fusion of cervical spine C5-6 FUSION NO LIMITATIONS History of colectomy sigmoid 04/2010 Dr. Grant @ [facility] 10cm removed History of tooth extraction History of tonsillectomy Status post insertion of drug-eluting stent into left anterior descending (LAD) artery for coronary artery disease TIMOTHY x3 - 06/21/2019 @ [facility] by Dr. Ramos--d/t abnormal stress test History of lithotripsy X MANY History of colonoscopy Family History Brother Myocardial infarction [place] - age 14 Other No family history of adverse response to anesthesia No significant family history Denies family history of Ovarian cancer Prostate cancer Diabetes Heart disease Breast cancer Lung cancer Colorectal cancer Stroke Social History Smoking Status: Never smoker Second Hand Exposure: No; Do You Dip or Chew Tobacco: No; Hx Alcohol Use: No Hx Substance Use: No Preferred Language: Sami Communication Ability: Effective Visual Impairment: Limited Hearing Ability: Normal 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 Beliefs That Will Affect Care: None marital status: Single Current Living Situation: Significant Other Current Living Situation Comment: WITH GIRLFRIEND current occupational status: employed and unemployed current occupation: [employer] How many Children do You have: 1 Feels Safe at Home: Yes Childhood Exposure to Second-Hand Smoke: No caffeine: Yes Dental Care, Regularly: Yes Physical Activity Frequency: Does not Exercise Seatbelt Use: never Sunscreen Use: No Assistive Devices: None Allergies Allergies Allergy/AdvReac Type Severity Reaction Status Date / Time tramadol Allergy Intermediate HIVES Verified 04/25/23 23:07 Home Meds Home Medications Medication Instructions Recorded Confirmed aspirin 81 mg tablet,delayed 81 mg PO QAM 09/26/19 04/25/23 release (Adult Low Dose Aspirin) Previous Rx's Medication Instructions Recorded enalapril maleate 20 mg tablet 20 mg PO BID #180 tabs 03/23/21 gemfibrozil 600 mg tablet 600 mg PO BID #180 tabs 05/26/21 rosuvastatin 40 mg tablet 40 mg PO DAILY #90 tabs 11/26/21 metoprolol succinate 100 mg 100 mg PO QAM #90 tabs 05/01/22 tablet,extended release 24 hr clopidogrel 75 mg tablet 75 mg PO QAM #90 tabs 12/20/22 ondansetron 4 mg disintegrating 4 mg PO Q6H PRN nausea and 04/22/23 tablet vomiting #14 tabs oxycodone 5 mg tablet 5 mg PO Q6H PRN pain #14 tabs 04/22/23 tamsulosin 0.4 mg capsule 0.4 mg PO DAILY #10 caps 04/22/23 Results & Data (ED) Vital Signs Vital Signs - 24 hr 04/25/23 20:47 04/25/23 20:53 04/25/23 23:49 Temperature 36.6 C Temperature Source Oral Pulse Rate 107 H Pulse Rate [Finger] 93 H Pulse Rhythm Regular Pulse Strength Normal Respiratory Rate 19 16 Respiratory Effort / Characteristics Non-Labored Non-Labored Spontaneous Non-Labored Spontaneous Respiratory Depth Normal Normal Normal Respiratory Pattern Regular Regular Regular Blood Pressure 116/80 Blood Pressure [Right Arm] 165/97 H Blood Pressure Mean 92 Blood Pressure Mean [Right Arm] 119 Blood Pressure Position Sitting Blood Pressure Position [Right Arm] Semi-fowlers Pulse Oximetry 95 92 Oxygen Delivery Method Room Air Room Air Room Air Sepsis Recent Fever Within 48 Hours No Sepsis New/Unexplained Change in Mental Status N/A Sepsis Action Taken by Nursing No Action Required Laboratory Data 04/25/23 21:17 04/25/23 21:17 Lab Results 04/25/23 04/25/23 Range/Units 21:16 21:17 WBC 8.55 (4.8-10.8) K/ul RBC 4.60 L (4.70-6.10) M/uL Hgb 13.6 L (14.0-18.0) g/dl Hct 40.0 L (42.0-52.0) % MCV 87.0 (80.0-100.0) fL MCH 29.6 (25.0-34.0) pg MCHC 34.0 (32.0-36.0) g/dL RDW Std Deviation 38.5 (36.4-46.3) fL RDW Coeff of Iain 12.1 (11.5-14.5) % Plt Count 213 (130-400) K/uL MPV 9.9 (9.4-12.4) fL Immature Gran % (Auto) 0.2 % Neut % (Auto) 72.2 % Lymph % (Auto) 18.5 % [place] % (Auto) 8.3 % Eos % (Auto) 0.6 % Baso % (Auto) 0.2 % Neut # (Auto) 6.17 (1.40-6.50) K/uL Lymph # (Auto) 1.58 (1.20-3.40) K/uL [place] # (Auto) 0.71 H (0.11-0.59) K/uL Eos # (Auto) 0.05 (0.00-0.50) K/uL Baso # (Auto) 0.02 (0.00-0.20) K/uL Immature Gran # (Auto) 0.02 (0.01-0.20) K/uL Sodium 134 L (136-145) mmol/L Potassium 3.8 (3.5-5.1) mmol/L Chloride 98 (98-107) mmol/L Carbon Dioxide 26 (21-32) mmol/L Anion Gap 10 (3-11) BUN 16 (6-23) mg/dl Creatinine 1.56 H (0.6-1.4) mg/dl Est Cr Clr Drug Dosing 84.4 ml/min Est GFR ( Amer) 59.6 ml/min Est GFR (Non-Af Amer) 51.4 ml/min BUN/Creatinine Ratio 10.3 (10-20) Glucose 128 H (70-99(Fasting)) mg/dl Calcium 9.4 (8.6-10.3) mg/dl Total Bilirubin 0.8 (0.2-1.0) mg/dl AST 15 (13-39) U/L ALT 18 (7-52) U/L Alkaline Phosphatase 84 (34-104) U/L Total Protein 8.0 (6.0-8.3) gm/dl Albumin 4.3 (3.4-5.0) gm/dl Globulin 3.7 (2.5-4.0) gm/dl Albumin/Globulin Ratio 1.2 (0.9-2) Urine Color Dark Yellow Urine Appearance Cloudy A (Clear) Urine pH 6.0 (4.5-7.5) Ur Specific [place] 1.025 (1.000-1.030) Urine Protein 1+ H (Negative) Urine Glucose (UA) Negative (Negative) Urine Ketones Trace H (Negative) Urine Blood Trace H (Negative) Urine Nitrite Negative (Negative) Urine Bilirubin Negative (Negative) Urine Urobilinogen Negative (Negative) Ur Leukocyte Esterase Negative (Negative) Urine WBC (Auto) 1-5 (0-5) /hpf Urine RBC (Auto) 5-10 H (0-4) /hpf U Hyaline Cast (Auto) 1-5 (0-5) /lpf U Epithel Cells (Auto) 10-20 H (0-5) /lpf Urine Bacteria (Auto) Negative (Negative) Administered Medications Discontinued Medications Fentanyl Citrate (Fentanyl Citrate Pf 100 Mcg/2 Ml Vial) 50 mcg IV NOW STA Stop: 04/25/23 21:57 Last Admin: 04/25/23 22:04 Dose: 50 mcg Documented By: LING Sodium Chloride (Nss) 1,000 mls @ 999 mls/hr IV .Q1H1M ONE Stop: 04/25/23 22:56 Last Infusion: 04/25/23 23:06 Dose: Infused Documented By: Admin: 04/25/23 22:05 Dose: 999 mls/hr Documented By: LING Ketorolac Tromethamine (Ketorolac 30 Mg/Ml Vial) 30 mg IV NOW ONE Stop: 04/25/23 23:05 Last Admin: 04/25/23 23:15 Dose: 30 mg Documented By: ROMAN Ondansetron HCl (Ondansetron Inj 2 Mg/Ml 2 Ml Vial) 4 mg IV NOW STA Stop: 04/25/23 20:58 Last Admin: 04/25/23 21:15 Dose: 4 mg Documented By: PATT Ondansetron HCl (Ondansetron Inj 2 Mg/Ml 2 Ml Vial) 4 mg IV NOW STA Stop: 04/25/23 21:57 Last Admin: 04/25/23 22:05 Dose: 4 mg Documented By: LING Imaging Data Radiologist's Impression: Abdomen/Pelvis CT 04/25/23 21:57 Exam(s): CT ABDOMEN + PELVIS Without Contrast EXAM: CT Abdomen and Pelvis Without Intravenous Contrast CLINICAL HISTORY: Reason for exam: right flank pain; vomiting. TECHNIQUE: Axial computed tomography images of the abdomen and pelvis without intravenous contrast. CTDI is 28.12 mGy and DLP is 1663.74 mGy-cm. Automated exposure control was utilized for the study. A dose lowering technique was utilized adhering to the principles of ALARA. COMPARISON: 04/22/2023 FINDINGS: Lung bases: Unremarkable. No mass. No consolidation. ABDOMEN: Liver: Unremarkable. Gallbladder and bile ducts: Unremarkable. No calcified stones. No ductal dilation. Pancreas: Unremarkable. No ductal dilation. Spleen: Unremarkable. No splenomegaly. Adrenals: Unremarkable. No mass. Kidneys and ureters: 0.7 cm distal right ureteral calculus has now migrated to within a centimeter of the ureterovesical junction. Mild hydronephrosis and hydroureter remains. Additional punctate nonobstructing bilateral renal calculi. 1.2 cm hyperdense cyst within the upper pole of the left kidney. No further follow-up is required. Stomach and bowel: Unremarkable. No obstruction. No mucosal thickening. PELVIS: Appendix: No findings to suggest acute appendicitis. Bladder: Unremarkable. No stones. Reproductive: Unremarkable as visualized. ABDOMEN and PELVIS: Intraperitoneal space: Unremarkable. No free air. No significant fluid collection. Bones/joints: No acute fracture. No dislocation. Soft tissues: Unremarkable. Vasculature: Unremarkable. No abdominal aortic aneurysm. Lymph nodes: Unremarkable. No enlarged lymph nodes. IMPRESSION: 1. 0.7 cm distal right ureteral calculus has now migrated to within a centimeter of the ureterovesical junction. Mild hydronephrosis and hydroureter remains. 2. Additional punctate nonobstructing bilateral renal calculi. . Electronically signed by: Satya Sahni M.D. 04/25/23 23:52 PM Discharge Plan Visit Data Chief Complaint: Kidney Stone Stated Complaint: KIDNEY STONE ED Provider: Vanessa Ross Discharge Problem: Intractable nausea and vomiting, Acute right flank pain, Calculus of right ureter, Hydronephrosis of right kidney Forms Stand Alone Forms: My [facility] [employer] Prescriptions Prescriptions: No Action enalapril maleate 20 mg tablet 20 mg PO BID Qty: 180 1RF gemfibrozil 600 mg tablet 600 mg PO BID Qty: 180 3RF Rx Instructions: TAKE 1 TABLET TWICE DAILY 1/2 HOUR BEFORE MEALS, (BEFORE BREAKFAST & SUPPER) FOR CHOLESTEROL rosuvastatin 40 mg tablet 40 mg PO DAILY Qty: 90 3RF metoprolol succinate 100 mg tablet extended release 24 hr 100 mg PO QAM Qty: 90 1RF clopidogrel 75 mg tablet 75 mg PO QAM Qty: 90 3RF aspirin [Adult Low Dose Aspirin] 81 mg tablet,delayed release (DR/EC) 81 mg PO QAM tamsulosin 0.4 mg capsule 0.4 mg PO DAILY Qty: 10 0RF ondansetron 4 mg tablet,disintegrating 4 mg PO Q6H PRN (Reason: nausea and vomiting) Qty: 14 0RF oxycodone 5 mg tablet 5 mg PO Q6H PRN (Reason: pain) Qty: 14 0RF Referrals Referrals: Vitaliy Hoffman MD [Primary Care Provider] -
[2023-04-25] MEDS ORDERED: KETOROLAC 30 MG/ML VIAL IV ONE (23:04)
--- NOTE | 2023-04-25 23:53 | CT Scan Report ---
Exam(s): CT ABDOMEN + PELVIS Without Contrast EXAM: CT Abdomen and Pelvis Without Intravenous Contrast CLINICAL HISTORY: Reason for exam: right flank pain; vomiting. TECHNIQUE: Axial computed tomography images of the abdomen and pelvis without intravenous contrast. CTDI is 28.12 mGy and DLP is 1663.74 mGy-cm. Automated exposure control was utilized for the study. A dose lowering technique was utilized adhering to the principles of ALARA. COMPARISON: 04/22/2023 FINDINGS: Lung bases: Unremarkable. No mass. No consolidation. ABDOMEN: Liver: Unremarkable. Gallbladder and bile ducts: Unremarkable. No calcified stones. No ductal dilation. Pancreas: Unremarkable. No ductal dilation. Spleen: Unremarkable. No splenomegaly. Adrenals: Unremarkable. No mass. Kidneys and ureters: 0.7 cm distal right ureteral calculus has now migrated to within a centimeter of the ureterovesical junction. Mild hydronephrosis and hydroureter remains. Additional punctate nonobstructing bilateral renal calculi. 1.2 cm hyperdense cyst within the upper pole of the left kidney. No further follow-up is required. Stomach and bowel: Unremarkable. No obstruction. No mucosal thickening. PELVIS: Appendix: No findings to suggest acute appendicitis. Bladder: Unremarkable. No stones. Reproductive: Unremarkable as visualized. ABDOMEN and PELVIS: Intraperitoneal space: Unremarkable. No free air. No significant fluid collection. Bones/joints: No acute fracture. No dislocation. Soft tissues: Unremarkable. Vasculature: Unremarkable. No abdominal aortic aneurysm. Lymph nodes: Unremarkable. No enlarged lymph nodes. IMPRESSION: 1. 0.7 cm distal right ureteral calculus has now migrated to within a centimeter of the ureterovesical junction. Mild hydronephrosis and hydroureter remains. 2. Additional punctate nonobstructing bilateral renal calculi. . Electronically signed by: Satya Sahni M.D. 04/25/23 23:52 PM
[2023-04-26] MEDS ORDERED: ONDANSETRON INJ 2 MG/ML 2 ML VIAL IV PRN (00:54)
[2023-04-26] MEDS ORDERED: HYDROmorphone INJ 0.5 MG/0.5 ML SYR IV PRN ×2 (00:54)
[2023-04-26] MEDS ORDERED: ACETAMINOPHEN 1,000 MG/100 ML VIAL IV PRN (00:54)
[2023-04-26] MEDS ORDERED: SODIUM CHLORIDE 0.9% 1,000 ML IV SCH (01:00)
--- NOTE | 2023-04-26 01:01 | History & Physical Report ---
Date of Service April 26, 2023 Assessment & Plan (1) Calculus of right ureter: (2) Hydronephrosis of right kidney: (3) Acute right flank pain: (4) Dehydration: (5) Mild renal insufficiency: (6) Hydronephrosis due to obstruction of ureter: (7) CAD (coronary artery disease): (8) Status post insertion of drug-eluting stent into left anterior descending (LAD) artery for coronary artery disease: (9) Depression with anxiety: (10) Hypertension: Plan 6 to 7 mm right ureteral calculus causing mild right hydro ureteral nephrosis- Patient was initially diagnosed on 04/22/2023 with a 6 mm proximal right ureteral calculus and mild right hydroureteronephrosis Due to persistence of nausea and vomiting and inability to take his usual medications, the patient Bulmaro presented to the emergency department this evening. CT scan now shows the right ureteral calculus has migrated to within 1 cm of the right UVJ, and there is persistence of the mild hydroureteronephrosis Patient does report an intermittent temperature Follow urine culture sensitivity Ceftriaxone 2 g IV daily N.p.o. except for essential medications for possible procedure Continue tamsulosin 0.4 mg daily Acetaminophen 1 g IV every 8 hours as needed for mild pain or fever Dilaudid 0.25 mg IV every 3 hours as needed for moderate pain Dilaudid 0.5 mg IV every 3 hours as needed for severe pain Zofran 4 mg IV every 6 hours as needed He is status post 1 L normal saline in the ED NSS at 100 mL/h Consult urology CAD/hypertension/TIMOTHY to LAD- He has not taken his aspirin or clopidogrel for 2 days, continue to hold Continue metoprolol succinate 100 mg every morning, with giving a 50 mg dose now Hold enalapril Admit to medical telemetry Acute kidney injury- Creatinine 1.56, with base 1.12 IV fluids as noted above Likely secondary to decreased liquid intake and obstructive process History of Present Illness Chief Complaint: The patient presents to the emergency department with worsening right flank pain, decreased oral intake for liquids and solids, and last having taken his medications 2 days ago. He was initially assessed in the emergency department on 04/22/2023, and was found to have a 6 mm proximal right ureteral calculus with mild hydroureteronephrosis, and was discharged after improved symptomatology on tamsulosin, Zofran and oxycodone. Primary Care Provider: Vitaliy Hoffman MD The patient is a 47-year-old male with a past medical history including insufficient sleep syndrome, hypersomnia, sleep apnea, anemia, restless leg syndrome, PLMD, hypertension, hyperlipidemia, depression with anxiety, CAD status post TIMOTHY to LAD, obesity, and lumbar facet syndrome. Patient was initially assessed in the emergency department 04/22/2023 where he was diagnosed with a 6 mm proximal right ureteral calculus with mild hydroureteronephrosis. At that time he was discharged on tamsulosin, Zofran and oxycodone. He reports he has been unable to take any of his prescription medications for 2 days due to nausea, vomiting and abdominal/flank pain. Allergies Allergy/AdvReac Type Severity Reaction Status Date / Time tramadol Allergy Intermediate HIVES Verified 04/25/23 23:07 Home Medications Medication Instructions Recorded Confirmed Type aspirin 81 mg tablet,delayed 81 mg PO QAM 09/26/19 04/25/23 History release (Adult Low Dose Aspirin) enalapril maleate 20 mg tablet 20 mg PO BID #180 tabs 03/23/21 04/25/23 Rx gemfibrozil 600 mg tablet 600 mg PO BID #180 tabs 05/26/21 04/25/23 Rx rosuvastatin 40 mg tablet 40 mg PO DAILY #90 tabs 11/26/21 04/25/23 Rx metoprolol succinate 100 mg 100 mg PO QAM #90 tabs 05/01/22 04/25/23 Rx tablet,extended release 24 hr clopidogrel 75 mg tablet 75 mg PO QAM #90 tabs 12/20/22 04/25/23 Rx ondansetron 4 mg disintegrating 4 mg PO Q6H PRN nausea and 04/22/23 04/25/23 Rx tablet vomiting #14 tabs oxycodone 5 mg tablet 5 mg PO Q6H PRN pain #14 tabs 04/22/23 04/25/23 Rx tamsulosin 0.4 mg capsule 0.4 mg PO DAILY #10 caps 04/22/23 04/25/23 Rx Past Med/Surg History Medical History (Updated 04/26/23 @ 00:23 by Vanessa Ross MD) Ureterolithiasis Acute URI of multiple sites Pain of left clavicle On anticoagulant therapy plavix daily Hyperlipidemia Cardiac murmur CAD (coronary artery disease) s/p cardiac cath 06/21/19 for abnormal DSE. TIMOTHY to mid LAD across origin of 2nd diagonal. TIMOTHY to Mid LAD overlapping with the proximal aspect of the initial stent. Residual narrowing and dissection noted at the ostium the 2nd diagonal. This was stented with a 3 x 12 mm [place] drug-eluting stent. Abnormal dobutamine stress echocardiogram Elevated BUN History of diverticulitis of colon reason for scheduled Colonoscopy 10/03/2019 Lumbago Facet syndrome, lumbar Heart murmur Mild MR per 2018 echo Osteoarthritis Hypertension follows with Dr. Alcantara Kidney stones HISTORY OF MANY TIMES Surgical History History of cardiac cath 06/21/2019 @ [facility]---3 TIMOTHY stents placed by Dr. Ramos Status post arthroscopy of hip left History of fusion of cervical spine C5-6 FUSION NO LIMITATIONS History of colectomy sigmoid 04/2010 Dr. Grant @ [facility] 10cm removed History of tooth extraction History of tonsillectomy Status post insertion of drug-eluting stent into left anterior descending (LAD) artery for coronary artery disease TIMOTHY x3 - 06/21/2019 @ [facility] by Dr. Ramos--d/t abnormal stress test History of lithotripsy X MANY History of colonoscopy Family History Brother Myocardial infarction [place] - age 14 Other No family history of adverse response to anesthesia No significant family history Denies family history of Ovarian cancer Prostate cancer Diabetes Heart disease Breast cancer Lung cancer Colorectal cancer Stroke Social History Smoking Status: Never smoker Second Hand Exposure: No; Do You Dip or Chew Tobacco: No; Hx Alcohol Use: No Hx Substance Use: No Preferred Language: Kazakh Communication Ability: Effective Visual Impairment: Limited Hearing Ability: Normal Inverter And Clipper Required: No Beliefs That Will Affect Care: None marital status: Single Current Living Situation: Significant Other Current Living Situation Comment: WITH GIRLFRIEND current occupational status: employed and unemployed current occupation: [employer] How many Children do You have: 1 Feels Safe at Home: Yes Childhood Exposure to Second-Hand Smoke: No caffeine: Yes Dental Care, Regularly: Yes Physical Activity Frequency: Does not Exercise Seatbelt Use: never Sunscreen Use: No Assistive Devices: None Review of Systems Review of Systems: The patient denies chest pain, palpitations, shortness of breath, dyspnea on exertion, cough, lower extremity swelling, sore throat, chills, sweats, diarrhea , constipation, blood in urine or stool, lightheadedness, dizziness, headache, memory loss, loss of consciousness, rash, abnormal bruising or bleeding, imbalance, focal or generalized weakness, numbness or tingling in arms or legs, generalized arthralgias or myalgias, neck pain, or night sweats. The review of systems is otherwise negative other than for that already noted above, and at least 10 systems have been reviewed. Physical Exam Physical Exam: The patient is awake, alert and oriented 3, well developed and well nourished, normocephalic and atraumatic, lying in bed and in no acute distress. HEENT--PERRL, EOMI, mucous membranes and oropharynx mildly dry. Neck--supple. No JVD. No bruits. Thyroid normal, trachea midline, no adenopathy. Heart--normal S1 and S2. No murmurs, rubs or gallops. Lungs--clear bilaterally, no respiratory distress, no accessory muscle use. Abdomen--normal bowel sounds and soft. Right flank tenderness. Obese Extremities--no cyanosis or clubbing. No edema. Dermatologic--skin warm and dry. No rash Neurologic--cranial nerves II through XII grossly intact. Rheumatologic--normal range of motion. Psychiatric--normal affect. Results & Data Results & Data Vital Signs (Past 12 Hours) Vital Signs Temp Pulse Pulse Resp BP BP Pulse Ox 04/25/23 23:49 93 H 16 165/97 H 92 04/25/23 20:53 36.6 C 107 H 19 116/80 95 04/25/23 20:47 O2 Del Method 04/25/23 23:49 Room Air 04/25/23 20:53 Room Air 04/25/23 20:47 Room Air Laboratory Results Laboratory Results WBC 8.55 K/ul (4.8-10.8) 04/25/23 21:17 RBC 4.60 M/uL (4.70-6.10) L 04/25/23 21:17 Hgb 13.6 g/dl (14.0-18.0) L 04/25/23 21:17 Hct 40.0 % (42.0-52.0) L 04/25/23 21:17 MCV 87.0 fL (80.0-100.0) 04/25/23 21:17 MCH 29.6 pg (25.0-34.0) 04/25/23 21:17 MCHC 34.0 g/dL (32.0-36.0) 04/25/23 21:17 RDW Std Deviation 38.5 fL (36.4-46.3) 04/25/23 21:17 RDW Coeff of Iain 12.1 % (11.5-14.5) 04/25/23 21:17 Plt Count 213 K/uL (130-400) 04/25/23 21:17 MPV 9.9 fL (9.4-12.4) 04/25/23 21:17 Immature Gran % (Auto) 0.2 % 04/25/23 21:17 Neut % (Auto) 72.2 % 04/25/23 21:17 Lymph % (Auto) 18.5 % 04/25/23 21:17 [place] % (Auto) 8.3 % 04/25/23 21:17 Eos % (Auto) 0.6 % 04/25/23 21:17 Baso % (Auto) 0.2 % 04/25/23 21:17 Neut # (Auto) 6.17 K/uL (1.40-6.50) 04/25/23 21:17 Lymph # (Auto) 1.58 K/uL (1.20-3.40) 04/25/23 21:17 [place] # (Auto) 0.71 K/uL (0.11-0.59) H 04/25/23 21:17 Eos # (Auto) 0.05 K/uL (0.00-0.50) 04/25/23 21:17 Baso # (Auto) 0.02 K/uL (0.00-0.20) 04/25/23 21:17 Immature Gran # (Auto) 0.02 K/uL (0.01-0.20) 04/25/23 21:17 Sodium 134 mmol/L (136-145) L 04/25/23 21:17 Potassium 3.8 mmol/L (3.5-5.1) 04/25/23 21:17 Chloride 98 mmol/L (98-107) 04/25/23 21:17 Carbon Dioxide 26 mmol/L (21-32) 04/25/23 21:17 Anion Gap 10 (3-11) 04/25/23 21:17 BUN 16 mg/dl (6-23) 04/25/23 21:17 Creatinine 1.56 mg/dl (0.6-1.4) H 04/25/23 21:17 Est Cr Clr Drug Dosing 84.4 ml/min 04/25/23 21:17 Est GFR ( Amer) 59.6 ml/min 04/25/23 21:17 Est GFR (Non-Af Amer) 51.4 ml/min 04/25/23 21:17 BUN/Creatinine Ratio 10.3 (10-20) 04/25/23 21:17 Glucose 128 mg/dl (70-99(Fasting)) H 04/25/23 21:17 Calcium 9.4 mg/dl (8.6-10.3) 04/25/23 21:17 Total Bilirubin 0.8 mg/dl (0.2-1.0) 04/25/23 21:17 AST 15 U/L (13-39) 04/25/23 21:17 ALT 18 U/L (7-52) 04/25/23 21:17 Alkaline Phosphatase 84 U/L (34-104) 04/25/23 21:17 Total Protein 8.0 gm/dl (6.0-8.3) 04/25/23 21:17 Albumin 4.3 gm/dl (3.4-5.0) 04/25/23 21:17 Globulin 3.7 gm/dl (2.5-4.0) 04/25/23 21:17 Albumin/Globulin Ratio 1.2 (0.9-2) 04/25/23 21:17 Urine Color Dark Yellow 04/25/23 21:16 Urine Appearance Cloudy (Clear) A 04/25/23 21:16 Urine pH 6.0 (4.5-7.5) 04/25/23 21:16 Ur Specific [place] 1.025 (1.000-1.030) 04/25/23 21:16 Urine Protein 1+ (Negative) H 04/25/23 21:16 Urine Glucose (UA) Negative (Negative) 04/25/23 21:16 Urine Ketones Trace (Negative) H 04/25/23 21:16 Urine Blood Trace (Negative) H 04/25/23 21:16 Urine Nitrite Negative (Negative) 04/25/23 21:16 Urine Bilirubin Negative (Negative) 04/25/23 21:16 Urine Urobilinogen Negative (Negative) 04/25/23 21:16 Ur Leukocyte Esterase Negative (Negative) 04/25/23 21:16 Urine WBC (Auto) 1-5 /hpf (0-5) 04/25/23 21:16 Urine RBC (Auto) 5-10 /hpf (0-4) H 04/25/23 21:16 U Hyaline Cast (Auto) 1-5 /lpf (0-5) 04/25/23 21:16 U Epithel Cells (Auto) 10-20 /lpf (0-5) H 04/25/23 21:16 Urine Bacteria (Auto) Negative (Negative) 04/25/23 21:16 Impressions Abdomen/Pelvis CT 04/25/23 21:57 Exam(s): CT ABDOMEN + PELVIS Without Contrast EXAM: CT Abdomen and Pelvis Without Intravenous Contrast CLINICAL HISTORY: Reason for exam: right flank pain; vomiting. TECHNIQUE: Axial computed tomography images of the abdomen and pelvis without intravenous contrast. CTDI is 28.12 mGy and DLP is 1663.74 mGy-cm. Automated exposure control was utilized for the study. A dose lowering technique was utilized adhering to the principles of ALARA. COMPARISON: 04/22/2023 FINDINGS: Lung bases: Unremarkable. No mass. No consolidation. ABDOMEN: Liver: Unremarkable. Gallbladder and bile ducts: Unremarkable. No calcified stones. No ductal dilation. Pancreas: Unremarkable. No ductal dilation. Spleen: Unremarkable. No splenomegaly. Adrenals: Unremarkable. No mass. Kidneys and ureters: 0.7 cm distal right ureteral calculus has now migrated to within a centimeter of the ureterovesical junction. Mild hydronephrosis and hydroureter remains. Additional punctate nonobstructing bilateral renal calculi. 1.2 cm hyperdense cyst within the upper pole of the left kidney. No further follow-up is required. Stomach and bowel: Unremarkable. No obstruction. No mucosal thickening. PELVIS: Appendix: No findings to suggest acute appendicitis. Bladder: Unremarkable. No stones. Reproductive: Unremarkable as visualized. ABDOMEN and PELVIS: Intraperitoneal space: Unremarkable. No free air. No significant fluid collection. Bones/joints: No acute fracture. No dislocation. Soft tissues: Unremarkable. Vasculature: Unremarkable. No abdominal aortic aneurysm. Lymph nodes: Unremarkable. No enlarged lymph nodes. IMPRESSION: 1. 0.7 cm distal right ureteral calculus has now migrated to within a centimeter of the ureterovesical junction. Mild hydronephrosis and hydroureter remains. 2. Additional punctate nonobstructing bilateral renal calculi. . Electronically signed by: Satya Sahni M.D. 04/25/23 23:52 PM Code Status & VTE Plan Code Status Full code VTE Prophylaxis Plan VTE Prophylaxis will be ordered: Yes PG Care Time/CCT Total # of Minutes Spent Total Time Spent with Patient: Total time spent is greater than 50% in coordination of care (as documented) at patient's floor/unit and/or counseling patient: Coding Level of Care Code 33316 INT INP/OBS CARE 3/75MIN Diagnoses Calculus of right ureter N20.1 Hydronephrosis of right kidney N13.30 Acute right flank pain R10.9 Dehydration E86.0 Mild renal insufficiency N28.9 Hydronephrosis due to obstruction of ureter N13.1 CAD (coronary artery disease) I25.10 Status post insertion of drug-eluting stent into left anterior descending (LAD) artery for coronary artery disease Z95.5 Depression with anxiety F41.8 Hypertension I10
[2023-04-26] MEDS ORDERED: METOPROLOL SUCC 50MG EXT REL TAB PO STA (01:05)
[2023-04-26] MEDS ORDERED: cefTRIAXone SODIUM 2,000 MG in DEXTROSE 5 % MINI-B 50 ML IV STA (01:24)
[2023-04-26] MEDS ORDERED: PANTOprazole 40 MG in SYRINGE 0 ML IV ONE (01:30)
[2023-04-26 07:53] LABS: Basophils # (auto) 0.02 K/uL (0.00-0.20); Basophils % (auto) 0.3 %; Eosinophils # (auto) 0.09 K/uL (0.00-0.50); Eosinophils % (auto) 1.5 %; Hematocrit (blood only) 36.4 % (42.0-52.0); Hemoglobin 12.1 g/dl (14.0-18.0); Immature Granulocytes # (auto) 0.02 K/uL (0.01-0.20); Immature Granulocytes % (auto) 0.3 %; Lymphocytes # (auto) 1.22 K/uL (1.20-3.40); Lymphocytes % (auto) 20.1 %; Mean Corpuscular Hemoglobin 29.6 pg (25.0-34.0); Mean Corpuscular Hgb Conc 33.2 g/dL (32.0-36.0); Mean Platelet Volume 10.2 fL (9.4-12.4); Monocytes # (auto) 0.53 K/uL (0.11-0.59); Monocytes % (auto) 8.7 %; Neutrophils # (auto) 4.19 K/uL (1.40-6.50); Neutrophils % (auto) 69.1 %; Platelet Count 199 K/uL (130-400); RDW Coefficient of Variation 12.3 % (11.5-14.5); RDW Standard Deviation 40.2 fL (36.4-46.3); Red Blood Count 4.09 M/uL (4.70-6.10); White Blood Count 6.07 K/ul (4.8-10.8)
[2023-04-26 08:07] LABS: Albumin Level 4.1 gm/dl (3.4-5.0); BUN Creatinine Ratio 9.2 (10-20); Calcium 8.9 mg/dl (8.6-10.3); Creatinine Clr Calc Pharmacy 81.2 ml/min; Est GFR (African American) 56.5 ml/min; Est GFR (Non-African American) 48.7 ml/min; Phosphorus 3.3 mg/dl (2.5-4.9); Potassium 4.1 mmol/L (3.5-5.1)
[2023-04-26] MEDS ORDERED: METOPROLOL SUCC 50MG EXT REL TAB PO SCH (09:00)
[2023-04-26] MEDS ORDERED: cefTRIAXone SODIUM 2,000 MG in DEXTROSE 5 % MINI-B 50 ML IV SCH (09:00)
[2023-04-26] MEDS ORDERED: ASPIRIN 81 MG ECTAB PO SCH (09:00)
--- NOTE | 2023-04-26 10:46 | Urology Consultation ---
Date of Consultation April 26, 2023 Assessment & Plan (1) Calculus of right ureter: Right distal ureteral calculus Hemodynamically stable Pain controlled On Plavix and aspirin at baseline Has been holding Plavix for 2 Sg instructed him to continue holding this He can remain on 81 mg aspirin Plan for discharge home and outpatient follow-up for ESWL History of Present Illness Attending Physician: Steven Dye MD History of Present Illness 47-year-old gentleman known to me from prior stone hospitalizations Presented yesterday with right flank pain He has a distal right ureteral calculus approximately 2 cm above the UVJ His creatinine is currently 1.6slightly elevated from baseline Afebrile, vital signs stable Reports his pain is extremely tolerable right now Has had prior experience with ureteral stents and would greatly like to avoid this I have offered him multiple options including trial of passage at home Also discussed scheduled ESWL at the next available time slot as well as emergent ureteral stenting or ureteroscopy/laser lithotripsy He greatly prefers to go home and schedule and as well as his backup plan He does take Plavix at baseline and will need to hold Plavix until his ESWLgiven the distal location of the stone, remaining on 81 mg aspirin would be safe and reasonable Allergies Allergy/AdvReac Type Severity Reaction Status Date / Time tramadol Allergy Intermediate HIVES Verified 04/25/23 23:07 Home Medications Medication Instructions Recorded Confirmed Type aspirin 81 mg tablet,delayed 81 mg PO QAM 09/26/19 04/25/23 History release (Adult Low Dose Aspirin) enalapril maleate 20 mg tablet 20 mg PO BID #180 tabs 03/23/21 04/25/23 Rx gemfibrozil 600 mg tablet 600 mg PO BID #180 tabs 05/26/21 04/25/23 Rx rosuvastatin 40 mg tablet 40 mg PO DAILY #90 tabs 11/26/21 04/25/23 Rx metoprolol succinate 100 mg 100 mg PO QAM #90 tabs 05/01/22 04/25/23 Rx tablet,extended release 24 hr clopidogrel 75 mg tablet 75 mg PO QAM #90 tabs 12/20/22 04/25/23 Rx ondansetron 4 mg disintegrating 4 mg PO Q6H PRN nausea and 04/22/23 04/25/23 Rx tablet vomiting #14 tabs oxycodone 5 mg tablet 5 mg PO Q6H PRN pain #14 tabs 04/22/23 04/25/23 Rx tamsulosin 0.4 mg capsule 0.4 mg PO DAILY #10 caps 04/22/23 04/25/23 Rx Patient History Medical History (Updated 04/26/23 @ 00:23 by Vanessa Ross MD) Ureterolithiasis Acute URI of multiple sites Pain of left clavicle On anticoagulant therapy plavix daily Hyperlipidemia Cardiac murmur CAD (coronary artery disease) s/p cardiac cath 06/21/19 for abnormal DSE. TIMOTHY to mid LAD across origin of 2nd diagonal. TIMOTHY to Mid LAD overlapping with the proximal aspect of the initial stent. Residual narrowing and dissection noted at the ostium the 2nd diagonal. This was stented with a 3 x 12 mm [place] drug-eluting stent. Abnormal dobutamine stress echocardiogram Elevated BUN History of diverticulitis of colon reason for scheduled Colonoscopy 10/03/2019 Lumbago Facet syndrome, lumbar Heart murmur Mild MR per 2018 echo Osteoarthritis Hypertension follows with Dr. Alcantara Kidney stones HISTORY OF MANY TIMES Surgical History History of cardiac cath 06/21/2019 @ [facility]---3 TIMOTHY stents placed by Dr. Ramos Status post arthroscopy of hip left History of fusion of cervical spine C5-6 FUSION NO LIMITATIONS History of colectomy sigmoid 04/2010 Dr. Grant @ [facility] 10cm removed History of tooth extraction History of tonsillectomy Status post insertion of drug-eluting stent into left anterior descending (LAD) artery for coronary artery disease TIMOTHY x3 - 06/21/2019 @ [facility] by Dr. Ramos--d/t abnormal stress test History of lithotripsy X MANY History of colonoscopy Family History Brother Myocardial infarction [place] - age 14 Other No family history of adverse response to anesthesia No significant family history Denies family history of Ovarian cancer Prostate cancer Diabetes Heart disease Breast cancer Lung cancer Colorectal cancer Stroke Social History Smoking Status: Never smoker Second Hand Exposure: No; Do You Dip or Chew Tobacco: No; Hx Alcohol Use: No Hx Substance Use: No Preferred Language: Jamaican Communication Ability: Effective Visual Impairment: Limited Hearing Ability: Normal 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 Manufacturing Technician Required: No Beliefs That Will Affect Care: None marital status: Single Current Living Situation: Spouse and Family Current Living Situation Comment: WITH GIRLFRIEND current occupational status: employed and unemployed current occupation: [employer] How many Children do You have: 1 Feels Safe at Home: Yes Childhood Exposure to Second-Hand Smoke: No caffeine: Yes Dental Care, Regularly: Yes Physical Activity Frequency: Does not Exercise Seatbelt Use: never Sunscreen Use: No Assistive Devices: None Physical Exam Constitutional: well developed and well nourished Neck: neck nontender Respiratory: normal respiratory effort; no respiratory distress and does not use accessory muscles Cardiovascular: Rate/Rhythm: regular rate Vessels: radial pulses present Extremities: no edema Gastrointestinal (Abdomen): Inspection/Auscultation: abdomen normal to inspection Percussion/Palpation: abdomen soft; abdomen nontender and no guarding Musculoskeletal: Head/Neck/Chest: normocephalic and head atraumatic Extremities: extremities normal to inspection Skin: no rashes and no lesions Trauma: no evidence of skin trauma Neurologic: awake; not obtunded Speech / Cognition: normal speech Motor/Sensory: no tremor Psychiatric: Orientation: alert and oriented x 3 Genitourinary: no CVA tenderness Lymphatic: no lymphadenopathy Results & Data Vital Signs (Past 12 Hours) Vital Signs Temp Pulse Pulse Resp BP Pulse Ox O2 Del Method 04/26/23 07:31 36.6 C 83 19 158/104 H 95 Room Air 04/26/23 07:00 81 04/26/23 02:55 81 04/26/23 02:30 Room Air 04/26/23 02:26 36.2 C L 90 20 156/106 H 96 Room Air 04/26/23 01:35 88 18 160/96 H 96 Room Air 04/25/23 23:49 93 H 16 165/97 H 92 Room Air PG Care Time/CCT Total # of Minutes Spent Total Time Spent with Patient: Total time spent is greater than 50% in coordination of care (as documented) at patient's floor/unit and/or counseling patient: Coding Level of Care Code 13605 IN/OBS CONSULT LVL 3,45M Diagnoses Calculus of right ureter N20.1
[2023-04-26] MEDS ORDERED: PANTOprazole 40 MG in SYRINGE 0 ML IV SCH (11:00)
--- NOTE | 2023-04-26 12:32 | Discharge Summary ---
Date of Service April 26, 2023 Admission HPI Per Admitting Provider The patient is a 47-year-old male with a past medical history including insufficient sleep syndrome, hypersomnia, sleep apnea, anemia, restless leg syndrome, PLMD, hypertension, hyperlipidemia, depression with anxiety, CAD status post TIMOTHY to LAD, obesity, and lumbar facet syndrome. Patient was initially assessed in the emergency department 04/22/2023 where he was diagnosed with a 6 mm proximal right ureteral calculus with mild hydroureteronephrosis. At that time he was discharged on tamsulosin, Zofran and oxycodone. He reports he has been unable to take any of his prescription medications for 2 days due to nausea, vomiting and abdominal/flank pain. Principal Diagnosis Right ureter calculus and colic, right hydronephrosis, acute kidney injury Discharge Exam General-alert and oriented x3, no fevers, no chills HEENT-head atraumatic and normocephalic, pupils equal and reactive to light, extraocular muscles intact Neck-no lymphadenopathy or thyromegaly, trachea midline Chest-clear to auscultation percussion. No rales wheezing or rhonchi Cardiac-regular rate and rhythm, normal S1 and S2 Abdomen-normal bowel sounds, nontender, no hepatosplenomegaly Extremities-no cyanosis, clubbing, or edema Neuro-cranial nerves II through XII intact, motor and sensory function within normal limits, strength symmetrical , no focal deficits Psych-normal affect, normal mood Discharge Data Allergies Allergy/AdvReac Type Severity Reaction Status Date / Time tramadol Allergy Intermediate HIVES Verified 04/25/23 23:07 Consultations 04/26/23 00:23 ED Decision to Admit Stat 04/26/23 01:00 Consult Urology Stat Ordered Studies 04/25/23 21:57 CT Abdomen and Pelvis [CT abd pelvis wo con] Stat Hospital Course (1) Calculus of right ureter: Urology consultation appreciated. Outpatient intervention later this week. Continue pain control measures as needed. (2) Hydronephrosis of right kidney: Mild. Due to right ureter obstruction (3) Mild renal insufficiency: Mild acute kidney injury present on admission. Creatinine is 1.5. This will return to baseline after obstruction is relieved (4) CAD (coronary artery disease): Stable. Continue current medical management (5) Status post insertion of drug-eluting stent into left anterior descending (LAD) artery for coronary artery disease: PCI was completed in 2019. I am not sure why he is still on dual antiplatelet therapy. Nevertheless, Plavix will remain on hold until the outpatient cystoscopy is completed. Aspirin has been resumed. (6) Depression with anxiety: Stable. Continue current medical (7) Hypertension: Stable. Continue current medical management except enalapril remains on hold until after the cystoscopy procedure Plan Home today. Plavix remains on hold. Urology will proceed with outpatient intervention later this week. Total Time Total Time Spent Total Time Spent (In Minutes): 45 minutes Discharge Plan Discharge Items Patient Disposition: Home - Self-Care Reason For Visit: R URETERAL STONE WITH HYDRO, AMY, HTN Discharge Diagnosis: Right ureter calculus and colic, mild right hydronephrosis due to ureter obstruction, acute kidney injury Activity: Resume your previous activity Non-emergency contact: Primary Care Provider and Urologist Call non-emergency contact if: you have any medication questions and your symptoms worsen Follow-up/Referrals: Vitaliy Hoffman MD [Primary Care Provider] - Diet: Regular and Heart Healthy Addtl Attending Provider Instructions: Hold enalapril and Plavix until after cystoscopy is completed Pending Studies at Discharge: No Stand-Alone Forms: My [facility] artaculous, Smoking Cessation Medications and DC Order Prescriptions: New oxycodone 5 mg tablet 5 mg PO Q6H PRN (Reason: pain) Qty: 14 0RF Continued enalapril maleate 20 mg tablet 20 mg PO BID Qty: 180 1RF gemfibrozil 600 mg tablet 600 mg PO BID Qty: 180 3RF Rx Instructions: TAKE 1 TABLET TWICE DAILY 1/2 HOUR BEFORE MEALS, (BEFORE BREAKFAST & SUPPER) FOR CHOLESTEROL rosuvastatin 40 mg tablet 40 mg PO DAILY Qty: 90 3RF metoprolol succinate 100 mg tablet extended release 24 hr 100 mg PO QAM Qty: 90 1RF clopidogrel 75 mg tablet 75 mg PO QAM Qty: 90 3RF aspirin [Adult Low Dose Aspirin] 81 mg tablet,delayed release (DR/EC) 81 mg PO QAM tamsulosin 0.4 mg capsule 0.4 mg PO DAILY Qty: 10 0RF ondansetron 4 mg tablet,disintegrating 4 mg PO Q6H PRN (Reason: nausea and vomiting) Qty: 14 0RF oxycodone 5 mg tablet 5 mg PO Q6H PRN (Reason: pain) Qty: 14 0RF Discharge Orders: Discharge Order (Routine); Ordered 04/26/23 Ordered By: Case Denson Admission Data Admit Date/Time: 04/26/23 01:00 Attending Provider: Steven Dye Admit Provider: Rocael Black Primary Care Provider: Vitaliy Hoffman V. Other Providers: Case Denson; Rocael Black Other Interventions: Discharge Summary Assessment (RN) Last Done: 04/26/23 11:48 Coding Level of Care Code 24959 INP/OBS DISCH >30 MIN Diagnoses Calculus of right ureter N20.1 Hydronephrosis of right kidney N13.30 Mild renal insufficiency N28.9 CAD (coronary artery disease) I25.10 Status post insertion of drug-eluting stent into left anterior descending (LAD) artery for coronary artery disease Z95.5 Depression with anxiety F41.8 Hypertension I10
== END 2023-04-26 13:03 | disposition home or self-care (01) | DRG 694 ==
LOC: ED 20:47 → SUATTDRO 04-26 01:00 → 2N 04-26 01:00

== ENCOUNTER 2024-07-02 19:04 | Observation (INO) ==
[2024-07-02 19:29] LABS: Basophils # (auto) 0.03 K/uL (0.00-0.20); Basophils % (auto) 0.3 %; Eosinophils # (auto) 0.13 K/uL (0.00-0.50); Eosinophils % (auto) 1.5 %; Hematocrit (blood only) 44.1 % (42.0-52.0); Hemoglobin 14.9 g/dl (14.0-18.0); Immature Granulocytes # (auto) 0.02 K/uL (0.01-0.20); Immature Granulocytes % (auto) 0.2 %; Lymphocytes % (auto) 27.5 %; Mean Corpuscular Hemoglobin 29.8 pg (25.0-34.0); Mean Corpuscular Hgb Conc 33.8 g/dL (32.0-36.0); Mean Corpuscular Volume 88.2 fL (80.0-100.0); Mean Platelet Volume 9.8 fL (9.4-12.4); Monocytes # (auto) 0.65 K/uL (0.11-0.59); Monocytes % (auto) 7.4 %; Neutrophils # (auto) 5.51 K/uL (1.40-6.50); Neutrophils % (auto) 63.1 %; Platelet Count 237 K/uL (130-400); RDW Coefficient of Variation 13.2 % (11.5-14.5); RDW Standard Deviation 42.9 fL (36.4-46.3); White Blood Count 8.74 K/ul (4.8-10.8)
--- NOTE | 2024-07-02 19:43 | Emergency Department Note ---
Impression & Plan Upper respiratory infection, viral, Chest pain ED Provider Note NAME: WES STEVENS AGE: 48 SEX: M : 1975 ARRIVES VIA: Walk-In INFORMANT: Patient, ED PROVIDER(S): Phoebe Sahni MD CHIEF COMPLAINT: Chest pain HPI: This is a 48-year-old male presenting for chest pain. Patient states that he began having a headache this morning. He notes similar sensation about 1 week ago. He notes that he had a sore throat yesterday otherwise as per nursing staff. Otherwise patient notes midsternal chest pain without radiation of pain. He notes that his associated with arm weakness. He notes no nausea or vomiting with this. No diarrhea. Does note mild shortness of breath. No pleurisy. No leg pain or swelling ROS: See above HPI for pertinent positives & negatives. A total of 10 systems reviewed and were otherwise negative. PAST MEDICAL HISTORY: See Below PAST SURGICAL HISTORY: See Below FAMILY HISTORY: See Below SOCIAL HISTORY: See Below HOME MEDICATIONS: See Below ALLERGIES: See Below VITALS: See Below PHYSICAL EXAMINATION: General: resting comfortably in no acute distress Head: Normocephalic and atraumatic Eyes: Normal inspection, extraocular muscles intact Ear, nose, throat: Normal external exam Neck: Normal range of motion Respiratory: lungs clear to auscultation bilaterally Cardiovascular: Regular rate/rhythm, no murmur GI: soft, nontender, no guarding or rebound Extremities: nontender, moves all extremities, 2+ pulses in all extremities, well-perfused Neuro: The patient awake and alert, appropriately conversive, no focal deficits, symmetric faces Skin: Warm, dry, and intact MEDICAL DECISION MAKING: This is a 48-year-old male presenting for chest pain. Will do screening workup to rule out ACS, PE, upper respiratory infection, pneumonia. -ECG independently interpreted by me with normal sinus rhythm, rate of 92, normal axis, normal [place], normal QRS, normal QTc, no ST segment elevations consistent with STEMI criteria -Bloodwork is reviewed showing no significant leukocytosis, anemia, electrolyte or creatinine abnormality. troponin initially 10. D-dimer negative making PE unlikely in setting of low Wells score, no hypoxia or tachycardia -Chest x-ray reveals mild congestive changes, previously similar -Patient's repeat troponin is uptrending, 24.8 -The patient is positive for RSV on his respiratory panel. Unclear if this is his reason for symptoms are unrelated. -Will admit this time as patient's troponin is elevated and rising with new chest pain -Care discussed Dr. Martinez for admission Differential diagnosis: ACS, PE, URI, pneumonia Independent History obtained from: Diagnostics interpreted by me: ECG: See above Cardiac Monitoring: An order was placed for continuous cardiac monitoring. The monitor shows a rate of 78 with sinus rhythm. Past Med/Surg History Problem List (Updated 07/03/24 @ 00:07 by Anatoliy Moss DO) RSV (respiratory syncytial virus infection) Elevated troponin Chest pain (Acute) Upper respiratory infection, viral (Acute) Obesity Tachycardia (Acute) DX 01/2018 AND WATCHING Antiplatelet or antithrombotic long-term use Erectile dysfunction Nocturnal hypoxemia Severe obstructive sleep apnea Prediabetes Hypertension CAD (coronary artery disease) s/p cardiac cath 06/21/19 for abnormal DSE. TIMOTHY to mid LAD across origin of 2nd diagonal. TIMOTHY to Mid LAD overlapping with the proximal aspect of the initial stent. Residual narrowing and dissection noted at the ostium the 2nd diagonal. This was stented with a 3 x 12 mm Hollis drug-eluting stent. Hydronephrosis of right kidney (Acute) Insufficient sleep syndrome Hypersomnia History of diverticulitis Tendinitis of right rotator cuff Right shoulder pain Hyperglycemia Colon polyps Anemia Chronic diarrhea S/P coronary artery stent placement (Chronic) Hyperlipidemia (Chronic) Left hip pain (Chronic) Low back pain (Chronic) Mitral regurgitation (Chronic) Nephrolithiasis (Acute) Overweight (Chronic) Periodic limb movement disorder (Chronic) Restless legs syndrome (Chronic) Systolic murmur (Chronic) Medical History Preoperative cardiovascular examination Calculus of right ureter Acute right flank pain Encounter for health maintenance examination Depression with anxiety Sleep apnea Acute URI of multiple sites Pain of left clavicle On anticoagulant therapy Hyperlipidemia Cardiac murmur Abnormal dobutamine stress echocardiogram Elevated BUN History of diverticulitis of colon Lumbago Facet syndrome, lumbar Heart murmur Osteoarthritis Hypertension Ureterolithiasis Kidney stones Surgical History History of esophagogastroduodenoscopy (EGD) History of cardiac cath Status post arthroscopy of hip History of fusion of cervical spine History of colectomy History of tooth extraction History of tonsillectomy Status post insertion of drug-eluting stent into left anterior descending (LAD) artery for coronary artery disease History of lithotripsy History of colonoscopy Family History Brother Myocardial infarction Other No family history of adverse response to anesthesia No significant family history Denies family history of Ovarian cancer Prostate cancer Diabetes Heart disease Breast cancer Lung cancer Colorectal cancer Stroke Social History Smoking Status: Never smoker Second Hand Exposure: No; Do You Dip or Chew Tobacco: No; Hx Alcohol Use: No Hx Substance Use: No Preferred Language: Barbadian Communication Ability: Effective Visual Impairment: Limited Hearing Ability: Normal [employer] [facility] Required: No Beliefs That Will Affect Care: None marital status: Single Current Living Situation: Spouse Current Living Situation Comment: WITH GIRLFRIEND current occupational status: employed and unemployed current occupation: [employer] How many Children do You have: 1 Feels Safe at Home: Yes Childhood Exposure to Second-Hand Smoke: No caffeine: Yes Dental Care, Regularly: Yes Physical Activity Frequency: Does not Exercise Seatbelt Use: never Sunscreen Use: No Assistive Devices: None Allergies Allergies Allergy/AdvReac Type Severity Reaction Status Date / Time tramadol Allergy Unknown HIVES Verified 06/30/24 09:45 Home Meds Home Medications Medication Instructions Recorded Confirmed aspirin 81 mg tablet,delayed 81 mg PO QAM 09/26/19 07/02/24 release (Adult Low Dose Aspirin) Previous Rx's Medication Instructions Recorded clopidogrel 75 mg tablet 75 mg PO QAM #90 tabs 05/28/23 gemfibrozil 600 mg tablet 600 mg PO BID #180 tabs 05/28/23 rosuvastatin 40 mg tablet 40 mg PO HS #90 tabs 08/16/23 metoprolol succinate 100 mg 100 mg PO QAM #90 tabs 12/30/23 tablet,extended release 24 hr tadalafil (pulm. hypertension) 20 20 mg PO DAILY PRN sexual activity 12/30/23 mg tablet (pulmonary hypertension) #20 tabs enalapril maleate 20 mg tablet 20 mg PO BID #180 tabs 05/22/24 icosapent ethyl 1 gram capsule 2 g (2 x 1 gram) PO BID #120 caps 06/15/24 Results & Data (ED) Vital Signs Vital Signs - 24 hr 07/02/24 19:08 07/02/24 19:23 07/02/24 19:23 Temperature 36.2 C L Temperature Source Temporal Artery Scan Pulse Rate 96 H Pulse Rate [Apical] 91 H Respiratory Rate 18 22 Respiratory Effort / Characteristics Respiratory Depth Respiratory Pattern Blood Pressure 170/112 H Blood Pressure [Right Arm] 144/102 H Blood Pressure Mean 131 Blood Pressure Mean [Right Arm] 116 Blood Pressure Position [Right Arm] Pulse Oximetry 94 94 94 Oxygen Delivery Method Room Air Room Air Room Air Sepsis Recent Fever Within 48 Hours No Sepsis New/Unexplained Change in Mental Status No Sepsis Action Taken by Nursing No Action Required 07/02/24 19:25 07/02/24 21:48 07/02/24 23:14 Temperature Temperature Source Pulse Rate 91 H 80 Pulse Rate [Apical] 85 Respiratory Rate 20 Respiratory Effort / Characteristics Non-Labored Spontaneous Respiratory Depth Normal Respiratory Pattern Regular Blood Pressure Blood Pressure [Right Arm] 125/88 Blood Pressure Mean Blood Pressure Mean [Right Arm] 100 Blood Pressure Position [Right Arm] Semi-fowlers Pulse Oximetry 95 Oxygen Delivery Method Room Air Sepsis Recent Fever Within 48 Hours Sepsis New/Unexplained Change in Mental Status Sepsis Action Taken by Nursing 07/03/24 00:15 Temperature Temperature Source Pulse Rate Pulse Rate [Apical] 78 Respiratory Rate 16 Respiratory Effort / Characteristics Non-Labored Spontaneous Respiratory Depth Normal Respiratory Pattern Regular Blood Pressure Blood Pressure [Right Arm] 114/86 Blood Pressure Mean Blood Pressure Mean [Right Arm] 95 Blood Pressure Position [Right Arm] Sitting Pulse Oximetry 95 Oxygen Delivery Method Room Air Sepsis Recent Fever Within 48 Hours Sepsis New/Unexplained Change in Mental Status Sepsis Action Taken by Nursing Laboratory Data 07/02/24 19:17 07/02/24 19:17 Lab Results 07/02/24 07/02/24 07/02/24 Range/Units 19:17 19:57 22:00 WBC 8.74 (4.8-10.8) K/ul RBC 5.00 (4.70-6.10) M/uL Hgb 14.9 (14.0-18.0) g/dl Hct 44.1 (42.0-52.0) % MCV 88.2 (80.0-100.0) fL MCH 29.8 (25.0-34.0) pg MCHC 33.8 (32.0-36.0) g/dL RDW Std Deviation 42.9 (36.4-46.3) fL RDW Coeff of Iain 13.2 (11.5-14.5) % Plt Count 237 (130-400) K/uL MPV 9.8 (9.4-12.4) fL Immature Gran % (Auto) 0.2 % Neut % (Auto) 63.1 % Lymph % (Auto) 27.5 % Ford % (Auto) 7.4 % Eos % (Auto) 1.5 % Baso % (Auto) 0.3 % Neut # (Auto) 5.51 (1.40-6.50) K/uL Lymph # (Auto) 2.40 (1.20-3.40) K/uL Ford # (Auto) 0.65 H (0.11-0.59) K/uL Eos # (Auto) 0.13 (0.00-0.50) K/uL Baso # (Auto) 0.03 (0.00-0.20) K/uL Immature Gran # (Auto) 0.02 (0.01-0.20) K/uL D-Dimer 380 (0-500) ug/L FEU Sodium 136 (136-145) mmol/L Potassium 3.8 (3.5-5.1) mmol/L Chloride 101 (98-107) mmol/L Carbon Dioxide 29 (21-32) mmol/L Anion Gap 6 (3-11) BUN 19 (6-23) mg/dl Creatinine 1.24 (0.6-1.4) mg/dl Est Cr Clr Drug Dosing 105.3 ml/min eGFR 70.83 BUN/Creatinine Ratio 15.3 (10-20) Glucose 106 H (70-99(Fasting)) mg/dl Calcium 9.8 (8.6-10.3) mg/dl Total Bilirubin 0.6 (0.2-1.0) mg/dl AST 18 (13-39) U/L ALT 24 (7-52) U/L Alkaline Phosphatase 95 (34-104) U/L Troponin I High Sens 10.1 24.8 H D (0-20) pg/ml Total Protein 7.8 (6.0-8.3) gm/dl Albumin 4.8 (3.4-5.0) gm/dl Globulin 3.0 (2.5-4.0) gm/dl Albumin/Globulin Ratio 1.6 (0.9-2) Lipase 28 (11-82) U/L Adenovirus (PCR) Not Detected (NotDetected) B. pertussis DNA (PCR) Not Detected (NotDetected) B.parapertussis DNA PCR Not Detected (NotDetected) C. pneumoniae DNA (PCR) Not Detected (NotDetected) Coronavirus OC43 (PCR) Not Detected (NotDetected) Coronavirus HKU1 (PCR) Not Detected (NotDetected) Coronavirus 229E (PCR) Not Detected (NotDetected) SARS-CoV-2 (PCR) Not Detected (NotDetected) Coronavirus NL63 (PCR) Not Detected (NotDetected) Human Metapneumovir PCR Not Detected (NotDetected) Influenza Type A (PCR) Not Detected (NotDetected) Influenza Type B (PCR) Not Detected (NotDetected) M. pneumoniae (PCR) Not Detected (NotDetected) Parainfluenza 1 (PCR) Not Detected (NotDetected) Parainfluenza 2 (PCR) Not Detected (NotDetected) Parainfluenza 3 (PCR) Not Detected (NotDetected) Parainfluenza 4 (PCR) Not Detected (NotDetected) RSV (PCR) DETECTED A (NotDetected) Entero/Rhino (PCR) Not Detected (NotDetected) 07/03/24 Range/Units 00:10 WBC (4.8-10.8) K/ul RBC (4.70-6.10) M/uL Hgb (14.0-18.0) g/dl Hct (42.0-52.0) % MCV (80.0-100.0) fL MCH (25.0-34.0) pg MCHC (32.0-36.0) g/dL RDW Std Deviation (36.4-46.3) fL RDW Coeff of Iain (11.5-14.5) % Plt Count (130-400) K/uL MPV (9.4-12.4) fL Immature Gran % (Auto) % Neut % (Auto) % Lymph % (Auto) % Ford % (Auto) % Eos % (Auto) % Baso % (Auto) % Neut # (Auto) (1.40-6.50) K/uL Lymph # (Auto) (1.20-3.40) K/uL Ford # (Auto) (0.11-0.59) K/uL Eos # (Auto) (0.00-0.50) K/uL Baso # (Auto) (0.00-0.20) K/uL Immature Gran # (Auto) (0.01-0.20) K/uL D-Dimer (0-500) ug/L FEU Sodium (136-145) mmol/L Potassium (3.5-5.1) mmol/L Chloride (98-107) mmol/L Carbon Dioxide (21-32) mmol/L Anion Gap (3-11) BUN (6-23) mg/dl Creatinine (0.6-1.4) mg/dl Est Cr Clr Drug Dosing ml/min eGFR BUN/Creatinine Ratio (10-20) Glucose (70-99(Fasting)) mg/dl Calcium (8.6-10.3) mg/dl Total Bilirubin (0.2-1.0) mg/dl AST (13-39) U/L ALT (7-52) U/L Alkaline Phosphatase (34-104) U/L Troponin I High Sens 45.8 H D (0-20) pg/ml Total Protein (6.0-8.3) gm/dl Albumin (3.4-5.0) gm/dl Globulin (2.5-4.0) gm/dl Albumin/Globulin Ratio (0.9-2) Lipase (11-82) U/L Adenovirus (PCR) (NotDetected) B. pertussis DNA (PCR) (NotDetected) B.parapertussis DNA PCR (NotDetected) C. pneumoniae DNA (PCR) (NotDetected) Coronavirus OC43 (PCR) (NotDetected) Coronavirus HKU1 (PCR) (NotDetected) Coronavirus 229E (PCR) (NotDetected) SARS-CoV-2 (PCR) (NotDetected) Coronavirus NL63 (PCR) (NotDetected) Human Metapneumovir PCR (NotDetected) Influenza Type A (PCR) (NotDetected) Influenza Type B (PCR) (NotDetected) M. pneumoniae (PCR) (NotDetected) Parainfluenza 1 (PCR) (NotDetected) Parainfluenza 2 (PCR) (NotDetected) Parainfluenza 3 (PCR) (NotDetected) Parainfluenza 4 (PCR) (NotDetected) RSV (PCR) (NotDetected) Entero/Rhino (PCR) (NotDetected) Administered Medications Discontinued Medications Aspirin (Aspirin Chew 324 Mg) 324 mg PO NOW STA Stop: 07/02/24 23:47 Last Admin: 07/03/24 00:14 Dose: 324 mg Documented By: EMB Aspirin (Aspirin Chew 324 Mg) Confirm Administered Dose 324 mg .ROUTE .STK-MED ONE Stop: 07/03/24 00:13 Last Admin: 07/03/24 00:14 Dose: Not Given Documented By: EMB Imaging Data Radiologist's Impression: Chest X-Ray 07/02/24 19:18 EXAM: Portable AP chest radiograph TECHNIQUE: AP portable radiograph of the chest was obtained. INDICATION: Shortness of breath Comparison: Chest radiograph August 16, 2023 FINDINGS: LINES and TUBES: CARDIOVASCULAR: Cardiac silhouette is stably enlarged in size. LUNGS/PLEURA: Mild pulmonary vascular congestion. No focal consolidation identified. No significant pleural fluid. No discernible pneumothorax. OSSEOUS/OTHER: No displaced acute osseous process identified. ACDF hardware. IMPRESSION: Mild congestive changes of the cardiovascular system which appears similar to previous radiograph from August 16, 2023. Electronically signed by Levi Gagnon 07-02-2024 8:12 PM Discharge Plan Visit Data Chief Complaint: Chest Pain Stated Complaint: CHEST PAIN, SOB ED Provider: Phoebe Sahni Discharge Problem: Upper respiratory infection, viral, Chest pain Patient Disposition: Home - Self-Care Discharge Instructions Krames/Other Patient Handouts: ED URI, Viral, No Abx (Adult), ED [facility] Chest Pain Activity Restrictions/Additional Instructions: you were seen for your upper respiratory type symptoms. Your physical exam and vitals are reassuring. Please come back for any worsening symptoms such as low oxygen levels, difficulty breathing, chest pain. 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 Forms Stand Alone Forms: My [facility], Important Visit Information Prescriptions Prescriptions: No Action clopidogrel 75 mg tablet 75 mg PO QAM Qty: 90 3RF gemfibrozil 600 mg tablet 600 mg PO BID Qty: 180 3RF Hold Instructions: On hold due to icosapent Rx Instructions: TAKE 1 TABLET TWICE DAILY 1/2 HOUR BEFORE MEALS, (BEFORE BREAKFAST & SUPPER) FOR CHOLESTEROL enalapril maleate 20 mg tablet 20 mg PO BID Qty: 180 0RF icosapent ethyl 1 gram capsule 2 g PO BID Qty: 120 5RF metoprolol succinate 100 mg tablet extended release 24 hr 100 mg PO QAM Qty: 90 3RF tadalafil (pulm. hypertension) 20 mg tablet 20 mg PO DAILY PRN (Reason: sexual activity) Qty: 20 3RF Rx Instructions: administer approximately 30min before sexual activity; do not use more than 1 dose per 24hrs rosuvastatin 40 mg tablet 40 mg PO HS Qty: 90 3RF aspirin [Adult Low Dose Aspirin] 81 mg tablet,delayed release (DR/EC) 81 mg PO QAM Referrals Referrals: Vitaliy Hoffman MD [Primary Care Provider] - Discharge Problem: Chest pain Qualifiers: Chest pain type: other chest pain Qualified Code(s): R07.89 - Other chest pain
[2024-07-02 19:46] LABS: Albumin Globulin Ratio 1.6 (0.9-2); Albumin Level 4.8 gm/dl (3.4-5.0); BUN Creatinine Ratio 15.3 (10-20); Bilirubin,Total 0.6 mg/dl (0.2-1.0); Calcium 9.8 mg/dl (8.6-10.3); Creatinine Clr Calc Pharmacy 105.3 ml/min; Potassium 3.8 mmol/L (3.5-5.1); Total Protein 7.8 gm/dl (6.0-8.3)
[2024-07-02 20:00] LABS: D Dimer 380 ug/L FEU (0-500)
[2024-07-02 20:02] LABS: Troponin I High Sensitivity 10.1 pg/ml (0-20)
--- NOTE | 2024-07-02 20:13 | XRay Report ---
EXAM: Portable AP chest radiograph TECHNIQUE: AP portable radiograph of the chest was obtained. INDICATION: Shortness of breath Comparison: Chest radiograph August 16, 2023 FINDINGS: LINES and TUBES: CARDIOVASCULAR: Cardiac silhouette is stably enlarged in size. LUNGS/PLEURA: Mild pulmonary vascular congestion. No focal consolidation identified. No significant pleural fluid. No discernible pneumothorax. OSSEOUS/OTHER: No displaced acute osseous process identified. ACDF hardware. IMPRESSION: Mild congestive changes of the cardiovascular system which appears similar to previous radiograph from August 16, 2023. Electronically signed by Levi Gagnon 07-02-2024 8:12 PM
[2024-07-02 21:27] LABS: Adenovirus PCR Not Detected (NotDetected); Bordetella parapertussis PCR Not Detected (NotDetected); Bordetella pertussis PCR Not Detected (NotDetected); Chlamydia pneumoniae PCR Not Detected (NotDetected); Coronavirus 229E PCR Not Detected (NotDetected); Coronavirus CoV-2 (COVID19)PCR Not Detected (NotDetected); Coronavirus HKU1 PCR Not Detected (NotDetected); Coronavirus NL63 PCR Not Detected (NotDetected); Coronavirus OC43PCR Not Detected (NotDetected); Human Metapneumovirus PCR Not Detected (NotDetected); Influenza A PCR Not Detected (NotDetected); Influenza B PCR Not Detected (NotDetected); Mycoplasma pneumoniae PCR Not Detected (NotDetected); Parainfluenza Virus 1 PCR Not Detected (NotDetected); Parainfluenza Virus 2 PCR Not Detected (NotDetected); Parainfluenza Virus 3 PCR Not Detected (NotDetected); Parainfluenza Virus 4 PCR Not Detected (NotDetected); Respiratory Syncytial VirusPCR DETECTED (NotDetected); Rhinovirus/Enterovirus PCR Not Detected (NotDetected)
[2024-07-03] MEDS: ASPIRIN CHEW 324 MG PO STA (00:14)
[2024-07-03] MEDS: ASPIRIN CHEW 324 MG ONE (00:14)
--- NOTE | 2024-07-03 00:16 | History & Physical Report ---
Date of Service July 02, 2024 Assessment & Plan (1) Chest pain: (2) Elevated troponin: (3) RSV (respiratory syncytial virus infection): (4) Antiplatelet or antithrombotic long-term use: (5) Nocturnal hypoxemia: (6) Severe obstructive sleep apnea: (7) Prediabetes: (8) Hypertension: (9) CAD (coronary artery disease): (10) S/P coronary artery stent placement: (11) Hyperlipidemia: Plan 48 yo male PMHx CAD s/p stenting in 2019, mitral regurgitation, HUGO, HTN, HLD, RLS, diverticulitis s/p sigmoidectomy admitted due to chest pain. #Chest Pain/CAD/Elevated Troponin Given 324mg ASA EKG with subtle J point depression in lateral leads Mild pulmonary vascular congestion on CXR Trend troponin to peak TTE ordered Continue ASA, Plavix, metoprolol, enalapril #RSV Supportive care Tylenol PRN fever Incentive spirometry #HUGO Severe, having difficulty tolerating CPAP Will order CPAP here, according to sleep medicine note 9cm H2O is his setting #HTN Continue enalapril #HLD Continue Crestor, icosapent #Prediabetes Not on medication Last A1 5.8 in 06/2024 FENGI: heart healthy Code status: full DVT prophylaxis: lovenox Isolation: droplet Disposition: med/tele History of Present Illness Primary Care Provider: Vitaliy Hoffman MD 48 yo male PMHx CAD s/p stenting in 2019, mitral regurgitation, HUGO, HTN, HLD, RLS, diverticulitis s/p sigmoidectomy admitted due to chest pain. Began having intermittent chest discomfort and SOB about 2 weeks ago. Pain described as dull and achy when present. Has also had HAMPTON and sore throat. He does have exposure to RSV (granddaughter). He denies N/V/D, LE edema. At the time of admission the patient is asymptomatic at rest. ED Course: VSS Labs reveal +RSV, mild troponin elevation EKG with mild J point depression in V5 & V6 CXR with mild pulmonary vascular congestion Allergies Allergy/AdvReac Type Severity Reaction Status Date / Time tramadol Allergy Unknown HIVES Verified 06/30/24 09:45 Home Medications Medication Instructions Recorded Confirmed Type aspirin 81 mg tablet,delayed 81 mg PO QAM 09/26/19 07/02/24 History release (Adult Low Dose Aspirin) clopidogrel 75 mg tablet 75 mg PO QAM #90 tabs 05/28/23 07/02/24 Rx gemfibrozil 600 mg tablet 600 mg PO BID #180 tabs 05/28/23 07/02/24 Rx rosuvastatin 40 mg tablet 40 mg PO HS #90 tabs 08/16/23 07/02/24 Rx metoprolol succinate 100 mg 100 mg PO QAM #90 tabs 12/30/23 07/02/24 Rx tablet,extended release 24 hr tadalafil (pulm. hypertension) 20 20 mg PO DAILY PRN sexual activity 12/30/23 07/02/24 Rx mg tablet (pulmonary hypertension) #20 tabs enalapril maleate 20 mg tablet 20 mg PO BID #180 tabs 05/22/24 07/02/24 Rx icosapent ethyl 1 gram capsule 2 g (2 x 1 gram) PO BID #120 caps 06/15/24 07/02/24 Rx Past Med/Surg History Problem List (Updated 07/03/24 @ 03:53 by Jean Cramer) RSV (respiratory syncytial virus infection) Elevated troponin Chest pain (Acute) Upper respiratory infection, viral (Acute) Obesity Tachycardia (Acute) DX 01/2018 AND WATCHING Antiplatelet or antithrombotic long-term use Erectile dysfunction Nocturnal hypoxemia Severe obstructive sleep apnea Prediabetes Hypertension CAD (coronary artery disease) s/p cardiac cath 06/21/19 for abnormal DSE. TIMOTHY to mid LAD across origin of 2nd diagonal. TIMOTHY to Mid LAD overlapping with the proximal aspect of the initial stent. Residual narrowing and dissection noted at the ostium the 2nd diagonal. This was stented with a 3 x 12 mm Meridian drug-eluting stent. Hydronephrosis of right kidney (Acute) Insufficient sleep syndrome Hypersomnia History of diverticulitis Tendinitis of right rotator cuff Right shoulder pain Hyperglycemia Colon polyps Anemia Chronic diarrhea S/P coronary artery stent placement (Chronic) Hyperlipidemia (Chronic) Left hip pain (Chronic) Low back pain (Chronic) Mitral regurgitation (Chronic) Nephrolithiasis (Acute) Overweight (Chronic) Periodic limb movement disorder (Chronic) Restless legs syndrome (Chronic) Systolic murmur (Chronic) Medical History Preoperative cardiovascular examination Calculus of right ureter Acute right flank pain Encounter for health maintenance examination Depression with anxiety Sleep apnea Acute URI of multiple sites Pain of left clavicle On anticoagulant therapy Hyperlipidemia Cardiac murmur Abnormal dobutamine stress echocardiogram Elevated BUN History of diverticulitis of colon Lumbago Facet syndrome, lumbar Heart murmur Osteoarthritis Hypertension Ureterolithiasis Kidney stones Surgical History History of esophagogastroduodenoscopy (EGD) History of cardiac cath Status post arthroscopy of hip History of fusion of cervical spine History of colectomy History of tooth extraction History of tonsillectomy Status post insertion of drug-eluting stent into left anterior descending (LAD) artery for coronary artery disease History of lithotripsy History of colonoscopy Family History Brother Myocardial infarction Other No family history of adverse response to anesthesia No significant family history Denies family history of Ovarian cancer Prostate cancer Diabetes Heart disease Breast cancer Lung cancer Colorectal cancer Stroke Social History Smoking Status: Never smoker Second Hand Exposure: No; Do You Dip or Chew Tobacco: No; Hx Alcohol Use: No Hx Substance Use: No Preferred Language: Serbian Communication Ability: Effective Visual Impairment: Limited Hearing Ability: Normal Utility Clerk Required: No Beliefs That Will Affect Care: None marital status: Single Current Living Situation: Spouse Current Living Situation Comment: WITH GIRLFRIEND current occupational status: employed and unemployed current occupation: [employer] How many Children do You have: 1 Other Information That Helps Us Care for You: No Feels Safe at Home: Yes Safety Concerns: Feels Safe At This Time Childhood Exposure to Second-Hand Smoke: No caffeine: Yes Dental Care, Regularly: Yes Physical Activity Frequency: Does not Exercise Seatbelt Use: never Sunscreen Use: No Assistive Devices: None Review of Systems Review of Systems: reviewed, per HPI Physical Exam Physical Exam: Constitutional: well-appearing, obese, no acute distress HEENT: NCAT, no conjunctival injection CV: regular rhythm, +murmur, extremities well-perfused, no LE edema Resp: CTABL, no wheezes/rales/rhonchi appreciated, no increased work of breathing GI: soft, nontender MSK: no gross deformities appreciated Skin: warm, dry, no rash appreciated Neuro: alert, oriented, no focal neurologic deficit appreciated Results & Data Results & Data Vital Signs (Past 12 Hours) Vital Signs Temp Pulse Pulse Resp BP BP Pulse Ox 07/02/24 23:14 80 07/02/24 21:48 85 20 125/88 95 07/02/24 19:25 91 H 07/02/24 19:23 91 H 22 144/102 H 94 07/02/24 19:23 94 07/02/24 19:08 36.2 C L 96 H 18 170/112 H 94 O2 Del Method 07/02/24 23:14 07/02/24 21:48 Room Air 07/02/24 19:25 07/02/24 19:23 Room Air 07/02/24 19:23 Room Air 07/02/24 19:08 Room Air Code Status & VTE Plan VTE Prophylaxis Plan VTE Prophylaxis will be ordered: Yes Supervising Physician Co-Signing Physician Notes Attending addendum: I have physically seen this patient, have supervised the medical residents activities, and agree with the H&P unless as otherwise noted. Assessment and Plan: The patient is a 48-year-old male with past medical history including coronary stenting x 3 in 2019, much regurgitation, HUGO currently undergoing titration parameters with Dr. Ansari, hypertension, hyperlipidemia, restless leg syndrome, diverticulitis status post sigmoidectomy. Patient reports episode 2 weeks ago of self-limited substernal chest discomfort. He has had 2 days of progressive weakness associated with viral syndrome, and today noted more significant chest discomfort, and was advised by his to come to the ED for assessment. In ED, patient had elevated troponin increasing from 10.1 24.8. Was found to have [employer] testing RSV positive, and referred for evaluation for admission. #Chest pain/elevated troponin/CAD/history of coronary stents- The patient will be admitted to telemetry for serial cardiac enzymes, serial EKG's, cardiac rhythm monitoring and a 2-D echocardiogram with Dopplers. Give aspirin 324 mg now EKG with subtle J-point depression lateral leads Mild pulmonary vascular congestion on chest x-ray Initial troponin 0.1 to follow-up 24.8 Continue aspirin, clopidogrel, metoprolol, and enalapril #RSV positive- Supportive care Primarily when he is held this point #Obstructive sleep apnea- Currently undergoing titration with Dr. Ansari in the outpatient setting As noted, start with 9 cmH2O here #Hyperlipidemia- Continue simvastatin 40 mg at bedtime check a fasting lipid panel Remaining orders and notations as noted Resident Activity Tracking Resident Involvement: Resident Care Provided Care Provided: Adult Hospital Medicine (1) Chest pain Chest pain type: other chest pain Qualified Code(s): R07.89 - Other chest pain (8) Hypertension Hypertension type: primary hypertension Qualified Code(s): I10 - Essential (primary) hypertension (9) CAD (coronary artery disease) Associated angina: without angina Coronary Disease-Associated Artery/Lesion type: [place] artery [place] vs. transplanted heart: [place] heart Qualified Code(s): I25.10 - Atherosclerotic heart disease of [place] coronary artery without angina pectoris (11) Hyperlipidemia Hyperlipidemia type: unspecified Qualified Code(s): E78.5 - Hyperlipidemia, unspecified
[2024-07-03] MEDS ORDERED: POLYETHYLENE (MIRALAX) 17 GM PACK PO PRN (04:00)
[2024-07-03] MEDS ORDERED: ACETAMINOPHEN 500 MG TAB PO PRN (04:00)
[2024-07-03] MEDS ORDERED: ALUMINUM/MAGNESIUM SUSP 30 ML UDC PO PRN (04:00)
[2024-07-03] MEDS ORDERED: MAGNESIUM HYDROXIDE SUSP 30 ML UDC PO PRN (04:00)
[2024-07-03] MEDS ORDERED: ONDANSETRON INJ 2 MG/ML 2 ML VIAL IV PRN (04:00)
--- NOTE | 2024-07-03 05:13 | Billing Data ---
Date of Service July 03, 2024 Coding Level of Care Code 25509 INT INP/OBS CARE
[2024-07-03 07:37] LABS: Basophils # (auto) 0.02 K/uL (0.00-0.20); Basophils % (auto) 0.3 %; Eosinophils # (auto) 0.12 K/uL (0.00-0.50); Hematocrit (blood only) 42.4 % (42.0-52.0); Hemoglobin 13.8 g/dl (14.0-18.0); Immature Granulocytes # (auto) 0.02 K/uL (0.01-0.20); Immature Granulocytes % (auto) 0.3 %; Lymphocytes # (auto) 1.46 K/uL (1.20-3.40); Lymphocytes % (auto) 24.6 %; Mean Corpuscular Hemoglobin 29.6 pg (25.0-34.0); Mean Corpuscular Hgb Conc 32.5 g/dL (32.0-36.0); Mean Corpuscular Volume 90.8 fL (80.0-100.0); Mean Platelet Volume 9.7 fL (9.4-12.4); Monocytes # (auto) 0.57 K/uL (0.11-0.59); Monocytes % (auto) 9.6 %; Neutrophils # (auto) 3.75 K/uL (1.40-6.50); Neutrophils % (auto) 63.2 %; Platelet Count 196 K/uL (130-400); RDW Coefficient of Variation 13.3 % (11.5-14.5); RDW Standard Deviation 44.1 fL (36.4-46.3); Red Blood Count 4.67 M/uL (4.70-6.10); White Blood Count 5.94 K/ul (4.8-10.8)
--- NOTE | 2024-07-03 07:37 | Hospitalist Progress Note ---
Date of Service July 03, 2024 Assessment & Plan (1) Chest pain: (2) Elevated troponin: (3) RSV (respiratory syncytial virus infection): (4) Antiplatelet or antithrombotic long-term use: (5) Nocturnal hypoxemia: (6) Severe obstructive sleep apnea: (7) Prediabetes: (8) Hypertension: (9) CAD (coronary artery disease): (10) S/P coronary artery stent placement: (11) Hyperlipidemia: Plan 48 yo male PMHx CAD s/p stenting in 2019, mitral regurgitation, HUGO, HTN, HLD, RLS, diverticulitis s/p sigmoidectomy admitted due to chest pain. Reported CP/SOB x 2 weeks with associated headache, sore throat. Reports hx CP x 3 episodes prior to falling asleep, no increased CP w/ activity Exposure to family w/ RSV, which was + on admission testing. Recent sleep visit/CPAP fixed settings #Chest Pain/CAD/Elevated Troponin s/p 324mg ASA. EKG w/ subtle J point depression lateral leads. CXR w/ mild pulmonary vascular congestion. BNP added/not elevated Troponin elevation from 10--> 24.8--> 45.8--> 51.5. EKG w/ RBBB unchanged from prior Notable BP elevated 176/120 on arrival, could have aspect from uncontrolled HTN as well -- currently BP 129/83 ECHO obtained and no wma but technically limited study NSR w/ PAC on telemetry, electrolytes stable. Repeat EKG obtained EKG w/ CP, telemetry monitoring. No CP, suspect troponin elevation 2nd to demand ischemia from acute viral illness but given complicated CAD hx w/o sx and abn stress testing leading to stenting and cardiology consult for Dr Washington as discussed placed and will plan for stress testing in AM/can discharge if negative. Does not appear to have sx related to activity but ?if underlying CAD Appreciate cards consult NPO at midnight for stress testing DVT proph: lovenox SQ. Pepcid BID for GI proph on asa/plavix/lovenox #RSV Isolation precautions. Supportive care, incentive spirometer, tylenol prn fever. Repeat CXR w/ resolution in congestion, BNP NOT elevated. 94% on RA #HUGO Severe, having difficulty tolerating CPAP Will order CPAP here, according to sleep medicine note 9cm H2O is his setting -- encourage use. #HTN Continue enalapril, metoprolol. BP elevated but not given AM medications/monitor response to such --> currently 129/83 but will monitor/increase as needed #HLD Continue Crestor, icosapent -TRG 528 in May, lipase only 28 on admission. Prior elevation TRG to 700s in December 2017 -Recently started icosapent 1g BID 06/12/24 #Prediabetes Not on medication Last A1 5.8 in 06/2024 -Consider once daily metformin for pre-DM given hx CAD/TIMOTHY to LAD in the past. Dispo: continued inpatient stay, stress testing in AM. Hopeful dc 3/4 following stress testing. Appreciate cards consult Admission and Anticipated Discharge Date Admission Date: July 02, 2024 Supervising Physician Co-Signing Physician Notes Attending Attestation - Pt seen/examined, chart reviewed, care plan d/w PA Shira Thayer. I agree w/ the godfrey components of this progress note. Please see my attestation on d/c summary dated 07/03/24. Spike Vergara MD Subjective Eval this morning, in room. No further CP, wishing to go home. ECHO done this marilyn, not yet read. Troponin to 51, repeat 40s. No further CP/SOB, 94% on RA. Thought about taking nitro SL at home but had not. Reports never had CP/SOB prior to his stent in past and had abn stress testing/hx stents. Given CP on/off for ~2 wks, 3 episodes prior to bed, cardiology consult has been place as discussed w/ Dr Washington and will consider stress testing in AM. If negative, can plan for dc. Physical Exam 2 Physical Exam: Constitutional: 48yo male, obese, sitting up at side of bed having breakfast, NAD/wanting to go home HEENT: head atraumatic, normocephalic, mmm, trachea midline Resp: CTA, no w/c/r, on room air CV: NSR on telemetry, PAC, no significant m/r/g, no pitting edema GI: +BS, soft/NT no colon MSK/Neuro/Psych: AOx3, cooperative, nonfocal, no loss of strength, moves all extremities, not confused Results & Data Results & Data Vital Signs (Past 12 Hours) Vital Signs Temp Pulse Pulse Resp BP Pulse Ox O2 Del Method 07/03/24 04:03 36.4 C L 72 16 156/96 H 96 Room Air 07/03/24 02:00 67 20 118/75 95 Nasal Cannula 07/03/24 00:30 85 L Room Air, Nasal Cannula 07/03/24 00:15 78 16 114/86 95 Room Air 07/02/24 23:14 80 07/02/24 21:48 85 20 125/88 95 Room Air O2 Flow Rate 07/03/24 04:03 07/03/24 02:00 2 07/03/24 00:30 0 07/03/24 00:15 07/02/24 23:14 07/02/24 21:48 Laboratory Results 07/03/24 06:45 07/03/24 06:45 Ddimer 380 Mag 2.1 BNP 34 Troponin 10.1--> 24.8--> 45.8 --> 51.5 --> 43.8 Diagnostic Findings Chest X-Ray 07/02/24 19:18 EXAM: Portable AP chest radiograph TECHNIQUE: AP portable radiograph of the chest was obtained. INDICATION: Shortness of breath Comparison: Chest radiograph August 16, 2023 FINDINGS: LINES and TUBES: CARDIOVASCULAR: Cardiac silhouette is stably enlarged in size. LUNGS/PLEURA: Mild pulmonary vascular congestion. No focal consolidation identified. No significant pleural fluid. No discernible pneumothorax. OSSEOUS/OTHER: No displaced acute osseous process identified. ACDF hardware. IMPRESSION: Mild congestive changes of the cardiovascular system which appears similar to previous radiograph from August 16, 2023. Electronically signed by Levi Gagnon 07-02-2024 8:12 PM Chest X-Ray 07/03/24 09:54 XR chest 1V portable CLINICAL HISTORY: f/u pulm congestion COMPARISON STUDY: 07/02/2024 FINDINGS: Stable mild cardiomegaly without pulmonary vascular congestion. No effusion, consolidation, or pneumothorax. IMPRESSION: No acute findings. ACT 112: Negative or not required by law. Electronically signed by: Ismael Cabrera M.D. 07/03/2024 11:23 AM PG Care Time/CCT Total # of Minutes Spent Total Time Spent with Patient: Total time spent is greater than 50% in coordination of care (as documented) at patient's floor/unit and/or counseling patient: Coding Level of Care Code 82108 SUB INP/OBS CARE 3/50MIN Diagnoses Chest pain R07.89 Chest pain type: other chest pain Elevated troponin R79.89 RSV (respiratory syncytial virus infection) B33.8 Antiplatelet or antithrombotic long-term use Z79.02 Nocturnal hypoxemia G47.34 Severe obstructive sleep apnea G47.33 Prediabetes R73.03 Primary hypertension I10 Hypertension type: primary hypertension Coronary artery disease involving [place] coronary artery of [place] heart without angina pectoris I25.10 Associated angina: without angina Coronary Disease-Associated Artery/Lesion type: [place] artery [place] vs. transplanted heart: [place] heart S/P coronary artery stent placement Z95.5 Hyperlipidemia, unspecified hyperlipidemia type E78.5 Hyperlipidemia type: unspecified (1) Chest pain Chest pain type: other chest pain Qualified Code(s): R07.89 - Other chest pain (8) Hypertension Hypertension type: primary hypertension Qualified Code(s): I10 - Essential (primary) hypertension (9) CAD (coronary artery disease) Associated angina: without angina Coronary Disease-Associated Artery/Lesion type: [place] artery [place] vs. transplanted heart: [place] heart Qualified Code(s): I25.10 - Atherosclerotic heart disease of [place] coronary artery without angina pectoris (11) Hyperlipidemia Hyperlipidemia type: unspecified Qualified Code(s): E78.5 - Hyperlipidemia, unspecified
[2024-07-03] MEDS ORDERED: hydrALAZINE HCL 20 MG/ML VIAL IV PRN (07:40)
[2024-07-03 07:47] LABS: BUN Creatinine Ratio 14.6 (10-20); Calcium 9.3 mg/dl (8.6-10.3); Creatinine Clr Calc Pharmacy 106.2 ml/min; Magnesium 2.1 mg/dl (1.7-2.4); Potassium 4.1 mmol/L (3.5-5.1)
[2024-07-03 07:54] LABS: Troponin I High Sensitivity 51.5 pg/ml (0-20)
[2024-07-03] MEDS: FAMOTIDINE 20MG IV PUSH 20 MG/5 ML SYR IV SCH (09:12)
[2024-07-03] MEDS: ENOXAPARIN INJ 40 MG/0.4 ML SYR SQ SCH (09:15)
[2024-07-03] MEDS: ENALAPRIL MALEATE 10 MG TAB PO SCH (09:16)
[2024-07-03] MEDS: METOPROLOL SUCC 50MG EXT REL TAB PO SCH (09:16)
[2024-07-03] MEDS: CLOPIDOGREL BISULFATE 75 MG TAB PO SCH (09:16)
[2024-07-03 11:06] VITALS: RESP 20; TEMP 97.3; O2SAT 94
--- NOTE | 2024-07-03 11:25 | XRay Report ---
XR chest 1V portable CLINICAL HISTORY: f/u pulm congestion COMPARISON STUDY: 07/02/2024 FINDINGS: Stable mild cardiomegaly without pulmonary vascular congestion. No effusion, consolidation, or pneumothorax. IMPRESSION: No acute findings. ACT 112: Negative or not required by law. Electronically signed by: Ismael Cabrera M.D. 07/03/2024 11:23 AM
[2024-07-03] MEDS: ASPIRIN 81 MG ECTAB PO SCH (12:10)
--- NOTE | 2024-07-03 12:48 | Discharge Summary ---
Discharge Summary Date of Service July 03, 2024 Principal Dx & Hospital Course #1 = Principal Diagnosis (1) Chest pain: (2) Elevated troponin: (3) RSV (respiratory syncytial virus infection): (4) Antiplatelet or antithrombotic long-term use: (5) Nocturnal hypoxemia: (6) Severe obstructive sleep apnea: (7) Prediabetes: (8) Hypertension: (9) CAD (coronary artery disease): (10) S/P coronary artery stent placement: (11) Hyperlipidemia: Plan 48 yo male PMHx CAD s/p stenting in 2019, mitral regurgitation, HUGO, HTN, HLD, RLS, diverticulitis s/p sigmoidectomy admitted due to chest pain. Reported CP/SOB x 2 weeks with associated headache, sore throat. Exposure to family w/ RSV, which was + on admission testing. Recent sleep visit/CPAP fixed settings #Chest Pain/CAD/Elevated Troponin Given 324mg ASA EKG with subtle J point depression in lateral leads Mild pulmonary vascular congestion on CXR Trend troponin to peak TTE ordered Continue ASA, Plavix, metoprolol, enalapril DVT Proph: lovenox SQ 3/3 Troponin 248--> 45.8--> 51.5. EKG w/ RBBB, unchanged from prior ?demand ischemia from elevated BP (was 176/120 on arrival) BP 129/83 following BP meds - ON metoprolol, enalapril at baseline and improved following administration this morning ECHO pending. Of note, has SL Nitro at home, thought about taking but did not. Resolution in sx without use reassuring not cardiac in nature however again ECHO pending at time of dc unless able to get resource conservationist to read prior ([place] in heart alertFelix on but typically not read echos) Repeat troponin 43.8, suspect 2nd to viral illness/HTN. ECHO w/o wma, technically difficult study. Compared to prior study,no significant change. Essentially normal study * Will plan for dc w/ CLOSE f/u DR ALTAMIRANO AT [facility] (pathology secretary/transcriptionist to ensure f/u appt) possible stress testing in f/u as discussed w/ cardiology train control technician Isolation precautions for RSV, supportive care. Got from [facility] per patient/ at bedside Repeat CXR w/o acute process, 94% on RA. BNP obtained and NOT elevated Continue IS, usual meds at al, cardiology/PCP follow up #RSV Supportive care Tylenol PRN fever Incentive spirometry #HUGO Severe, having difficulty tolerating CPAP Will order CPAP here, according to sleep medicine note 9cm H2O is his setting #HTN Continue enalapril, metoprolol. BP elevated but not given AM medications/monitor response to such #HLD Continue Crestor, icosapent TRG 528 in May, lipase only 28 on admission. Prior elevation TRG to 700s in December 2017 Recently started icosapent 1g BID 06/12/24 #Prediabetes Not on medication Last A1 5.8 in 06/2024 Consider once daily metformin for pre-DM given hx CAD/TIMOTHY to LAD in the past. FENGI: heart healthy Code status: full DVT prophylaxis: lovenox SQ while inpatient Isolation: droplet precautions for + RSV Disposition: med/tele Notes For Next Care Provider Consider stress ECHO if any ongoing/recurrance of sx Monitor for development of bacterial PNA Consider start metformin for pre-DM for risk prevention Consider H2 for GI/reflux (did order pepcid IV BID for GI proph w/ ASA/plavix and lovenox use but CP resolved prior to administration) Medication Changes From Visit None Admission HPI Per Admitting Provider 48 yo male PMHx CAD s/p stenting in 2019, mitral regurgitation, HUGO, HTN, HLD, RLS, diverticulitis s/p sigmoidectomy admitted due to chest pain. Began having intermittent chest discomfort and SOB about 2 weeks ago. Pain described as dull and achy when present. Has also had HAMPTON and sore throat. He does have exposure to RSV (granddaughter). He denies N/V/D, LE edema. At the time of admission the patient is asymptomatic at rest. ED Course: VSS Labs reveal +RSV, mild troponin elevation EKG with mild J point depression in V5 & V6 CXR with mild pulmonary vascular congestion Discharge Plan Discharge Items Patient Disposition: Home - Self-Care Reason For Visit: CHEST PAIN Discharge Diagnosis: Chest pain, r/o ACS +RSV Goals: You have been hospitalized for an acute medical problem. During your stay at [facility], we have made an effort to correct the problem that brought you to the hospital while keeping you as comfortable as possible. Medications were used to bring your condition under control and your discharge instructions will include directions for any medications you should take after leaving the hospital. Please make sure you see your Primary Care Provider as part of your follow up plan. Activity: As commented below Non-emergency contact: Primary Care Provider and Anesthesiologist Assistant Certified Call non-emergency contact if: you have any medication questions, your symptoms worsen, your pain is not controlled, your pain is worsening, your pain is unusual for you and you have a fever Follow-up/Referrals: Bernardino Altamirano Jr, MD, [facility] [Physician] - Vitaliy Hoffman MD [Primary Care Provider] - Diet: Carb Consistent or DM2 and Heart Healthy Addtl Attending Provider Instructions: You have been hospitalized for chest pain. Also found to be positive for RSV, andrews bryanna from sick family member. Chest xray did not show any pneumonia and you have been on room air. Please continue incentive spirometer (take with you) and use to prevent development of bacterial pneumonia. Troponin (enzyme that measures damage to cardiac tissues) was minimally elevated and decreased on repeat testing Recommend continuing to monitor your blood pressure, low salt diet, and imp rovement in diet for weight loss encouraged and should follow up with resource conservationist at discharge to consider outpatient stress testing in the future with Dr Altamirano. ECHO (ultrasound of the heart) did NOT show any wall motion abnormalities that would be worrisome as acute cardiac event. Please follow up with primary care in the next 7-10 days after discharge to monitor your progress as well as cardiology/Dr Altamirano as discussed. Please return to the ER with any increased shortness of breath, chest pain, fever/chills, or for any other symptoms concerning for you. It has been a pleasure being a part of the medical team providing for you while you have been in the hospital. Take care! Pending Studies at Discharge: Yes Studies:: ECHOCARDIOGRAM Stand-Alone Forms: [facility], Smoking Cessation Medications and DC Order Prescriptions: Continued clopidogrel 75 mg tablet 75 mg PO QAM Qty: 90 3RF gemfibrozil 600 mg tablet 600 mg PO BID Qty: 180 3RF Hold Instructions: On hold due to icosapent Rx Instructions: TAKE 1 TABLET TWICE DAILY 1/2 HOUR BEFORE MEALS, (BEFORE BREAKFAST & SUPPER) FOR CHOLESTEROL enalapril maleate 20 mg tablet 20 mg PO BID Qty: 180 0RF icosapent ethyl 1 gram capsule 2 g PO BID Qty: 120 5RF metoprolol succinate 100 mg tablet extended release 24 hr 100 mg PO QAM Qty: 90 3RF tadalafil (pulm. hypertension) 20 mg tablet 20 mg PO DAILY PRN (Reason: sexual activity) Qty: 20 3RF Rx Instructions: administer approximately 30min before sexual activity; do not use more than 1 dose per 24hrs rosuvastatin 40 mg tablet 40 mg PO HS Qty: 90 3RF aspirin [Adult Low Dose Aspirin] 81 mg tablet,delayed release (DR/EC) 81 mg PO QAM Admission Data Admit Date/Time: 07/02/24 23:55 Attending Provider: Spike Vergara Admit Provider: Anatoliy Moss Primary Care Provider: Vitaliy Hoffman V. Other Providers: Rocael Black Hospital Stay Data Consultations 07/02/24 23:13 ED Decision to Admit Stat Diagnostic Imagining Performed Chest X-Ray 07/02/24 19:18 EXAM: Portable AP chest radiograph TECHNIQUE: AP portable radiograph of the chest was obtained. INDICATION: Shortness of breath Comparison: Chest radiograph August 16, 2023 FINDINGS: LINES and TUBES: CARDIOVASCULAR: Cardiac silhouette is stably enlarged in size. LUNGS/PLEURA: Mild pulmonary vascular congestion. No focal consolidation identified. No significant pleural fluid. No discernible pneumothorax. OSSEOUS/OTHER: No displaced acute osseous process identified. ACDF hardware. IMPRESSION: Mild congestive changes of the cardiovascular system which appears similar to previous radiograph from August 16, 2023. Electronically signed by Levi Gagnon 07-02-2024 8:12 PM Chest X-Ray 07/03/24 09:54 XR chest 1V portable CLINICAL HISTORY: f/u pulm congestion COMPARISON STUDY: 07/02/2024 FINDINGS: Stable mild cardiomegaly without pulmonary vascular congestion. No effusion, consolidation, or pneumothorax. IMPRESSION: No acute findings. ACT 112: Negative or not required by law. Electronically signed by: Ismael Cabrera M.D. 07/03/2024 11:23 AM ECHOCARDIOGRAM 07/03/2024 The study was technically difficult. Compared to prior study, there is no significant change. This was essentially a normal study. Discharge Instructions Given to Patient (Per Discharging Provider) You have been hospitalized for chest pain. Also found to be positive for RSV, likely from sick family member. Chest xray did not show any pneumonia and you have been on room air. Please continue incentive spirometer (take with you) and use to prevent development of bacterial pneumonia. Troponin (enzyme that measures damage to cardiac tissues) was minimally elevated and decreased on repeat testing Recommend continuing to monitor your blood pressure, low salt diet, and improvement in diet for weight loss encouraged and should follow up with resource conservationist at discharge to consider outpatient stress testing in the future with Dr Altamirano. ECHO (ultrasound of the heart) did NOT show any wall motion abnormalities that would be worrisome as acute cardiac event. Please follow up with primary care in the next 7-10 days after discharge to mo nitor your progress as well as cardiology/Dr Altamirano as discussed. Please return to the ER with any increased shortness of breath, chest pain, fever/chills, or for any other symptoms concerning for you. It has been a pleasure being a part of the medical team providing for you while you have been in the hospital. Take care! Coding Diagnoses Chest pain R07.89 Chest pain type: other chest pain Elevated troponin R79.89 RSV (respiratory syncytial virus infection) B33.8 Antiplatelet or antithrombotic long-term use Z79.02 Nocturnal hypoxemia G47.34 Severe obstructive sleep apnea G47.33 Prediabetes R73.03 Primary hypertension I10 Hypertension type: primary hypertension Coronary artery disease involving [place] coronary artery of [place] heart without angina pectoris I25.10 Associated angina: without angina Coronary Disease-Associated Artery/Lesion type: [place] artery [place] vs. transplanted heart: [place] heart S/P coronary artery stent placement Z95.5 Hyperlipidemia, unspecified hyperlipidemia type E78.5 Hyperlipidemia type: unspecified
--- NOTE | 2024-07-03 13:51 | XCELERA ---
[id number] \\[id number]
--- NOTE | 2024-07-03 16:07 | Discharge Summary ---
Discharge Summary Date of Service July 03, 2024 Principal Dx & Hospital Course #1 = Principal Diagnosis (1) Chest pain: (2) Elevated troponin: (3) RSV (respiratory syncytial virus infection): (4) Antiplatelet or antithrombotic long-term use: (5) Nocturnal hypoxemia: (6) Severe obstructive sleep apnea: (7) Prediabetes: (8) Hypertension: (9) CAD (coronary artery disease): (10) S/P coronary artery stent placement: (11) Hyperlipidemia: Plan 48 yo male PMHx CAD s/p stenting in 2019, mitral regurgitation, HUGO, HTN, HLD, RLS, diverticulitis s/p sigmoidectomy admitted due to chest pain. Reported CP/SOB x 2 weeks with associated headache, sore throat. Reports hx CP x 3 episodes prior to falling asleep, no increased CP w/ activity Exposure to family w/ RSV, which was + on admission testing. Recent sleep visit/CPAP fixed settings #Chest Pain/CAD/Elevated Troponin s/p 324mg ASA. EKG w/ subtle J point depression lateral leads. CXR w/ mild pulmonary vascular congestion. BNP added/not elevated Troponin elevation from 10--> 24.8--> 45.8--> 51.5 --> 43.8 EKG w/ RBBB unchanged from prior Notable BP elevated 176/120 on arrival, could have aspect from uncontrolled HTN as well -- BP 129/83 on repeat following AM mds ECHO obtained and no wma but technically limited study NSR w/ PAC on telemetry, electrolytes stable. Repeat EKG obtained EKG w/ CP, telemetry monitoring. No CP, suspect troponin elevation 2nd to demand ischemia from acute viral illness but given complicated CAD hx w/o sx and abn stress testing leading to stenting in the past, was discussed with Dr Washington and placed consult and initially planned on stress testing in AM 3/4 but was seen by Dr Null and case discussed and believes troponin elevation 2nd to BP/acute illness and believes stable for dc today (as patient wishes)and believes OP stress testing better option given current RSV and plans to arrange for outpatient stress testing. Discussed to return to ER if any worsening symptoms/repeat symptoms. CM notified for needs for outpatient stress testing. DVT proph: lovenox SQ while inpatient. Pepcid BID was provided for GI proph on asa/plavix/lovenox however did not appear to be reflux in nature but could consider H2 in f/u PCP for GI proph at baseline #RSV Isolation precautions. Supportive care, incentive spirometer, tylenol prn fever. Repeat CXR w/ resolution in congestion, BNP NOT elevated. 94% on RA Discussed w/ supervising provider and recs for mucinex 1200mg BID at dc, rx has been sent. #HUGO Severe, having difficulty tolerating CPAP Ordered CPAP here, according to sleep medicine note 9cm H2O is his setting -- encourage use. F/u sleep medicine provider/compliance encouraged. Consider alternative tx if unable to tolerate #HTN Continue enalapril, metoprolol. BP elevated but not given AM medications/monitor response to such --> currently 129/83 on repeat but elevation prior to dc in hospital setting and rec low salt diet/continued monitoring at dc and further titration of metoprolol/enalapril vs additional agent rec. CPAP compliance encouraged and should help as well. Outpt f/u PCP #HLD Continue Crestor, icosapent -TRG 528 in May, lipase only 28 on admission. Prior elevation TRG to 700s in December 2017 -Recently started icosapent 1g BID 06/12/24, f/u PCP and cardiology as outlined above #Prediabetes Not on medication Last A1 5.8 in 06/2024 -Consider once daily metformin for pre-DM given hx CAD/TIMOTHY to LAD in the past in f/u PCP Notes For Next Care Provider Ensure outpatient stress testing/cardiology follow up Encouraged continued monitoring of BP but may benefit from additional agent vs further titration current medications, IE increase LUZ vs addition of amlodipine/low dose HCTZ if tolerates Monitor for development of bacterial PNA but repeat CXR w/o acute process and no hypoxia, BNP checked and was NOT elevated Not on home med list but does report has Nitro SL -- was seen by Dr Null inpatient and feels outpatient stress testing acceptable and did not need to r emain inpatient Medication Changes From Visit Mucinex BID Admission HPI Per Admitting Provider Primary Care Provider: Vitaliy Hoffman MD 48 yo male PMHx CAD s/p stenting in 2019, mitral regurgitation, HUGO, HTN, HLD, RLS, diverticulitis s/p sigmoidectomy admitted due to chest pain. Began having intermittent chest discomfort and SOB about 2 weeks ago. Pain described as dull and achy when present. Has also had HAMPTON and sore throat. He does have exposure to RSV (granddaughter). He denies N/V/D, LE edema. At the time of admission the patient is asymptomatic at rest. ED Course: VSS Labs reveal +RSV, mild troponin elevation EKG with mild J point depression in V5 & V6 CXR with mild pulmonary vascular congestion Admission Exam Per Admitting Provider Constitutional: well-appearing, obese, no acute distress HEENT: NCAT, no conjunctival injection CV: regular rhythm, +murmur, extremities well-perfused, no LE edema Resp: CTABL, no wheezes/rales/rhonchi appreciated, no increased work of breathing GI: soft, nontender MSK: no gross deformities appreciated Skin: warm, dry, no rash appreciated Neuro: alert, oriented, no focal neurologic deficit appreciated Discharge Exam Constitutional: 48yo male, obese, sitting up at side of bed eating meal, NAD, wanting to go home, occasional nonproductive cough, 94% on RA HEENT: head atraumatic, normocephalic, mmm, trachea midline Resp: CTA, no w/c/r, on room air CV: NSR on telemetry, PAC, no significant m/r/g, no pitting edema GI: +BS, soft/NT no colon MSK/Neuro/Psych: AOx3, cooperative, nonfocal, no loss of strength, moves all extremities, not confused Discharge Plan Discharge Items Patient Disposition: Home - Self-Care Reason For Visit: CHEST PAIN Discharge Diagnosis: Chest pain, r/o ACS +RSV Goals: You have been hospitalized for an acute medical problem. During your stay at [facility], we have made an effort to correct the problem that brought you to the hospital while keeping you as comfortable as possible. Medications were used to bring your condition under control and your discharge instructions will include directions for any medications you should take after leaving the hospital. Please make sure you see your Primary Care Provider as part of your follow up plan. Activity: As commented below Non-emergency contact: Primary Care Provider and Car Repairman Call non-emergency contact if: you have any medication questions, your symptoms worsen, your pain is not controlled, your pain is worsening, your pain is unusual for you and you have a fever Follow-up/Referrals: Bernardino Alcantara Jr, MD, [facility] [Physician] - Vitaliy Hoffman MD [Primary Care Provider] - 07/17/24 11:00 am Diet: Carb Consistent or DM2 and Heart Healthy Addtl Attending Provider Instructions: You have been hospitalized for chest pain. Also found to be positive for RSV, likely from sick family member. Chest xray did not show any pneumonia and you have been on room air. Please continue incentive spirometer (take with you) and use to prevent development of bacterial pneumonia. Troponin (enzyme that measures damage to cardiac tissues) was minimally elevated and decreased on repeat testing. Recommend continuing to monitor your blood pressure, low salt diet, and improvement in diet for weight loss encouraged and should follow up with industrial sociologist at discharge to consider outpatient stress testing in the future with Dr Alcantara. ECHO (ultrasound of the heart) did NOT show any wall motion abnormalities that would be worrisome as acute cardiac event. Please follow up with primary care in the next 7-10 days after discharge to monitor your progress as well as cardiology/Dr Alcantara as discussed and will plan for outpatient stress testing given recommendation from Dr Null while inpatient. Please return to the ER with any increased shortness of breath, chest pain, fever/chills, or for any other symptoms concerning for you. It has been a pleasure being a part of the medical team providing for you while you have been in the hospital. Take care! Pending Studies at Discharge: No Stand-Alone Forms: [facility], [facility] C[facility] Medications and DC Order Prescriptions: New guaifenesin [Mucinex] 1,200 mg tablet extended release 12hr 1,200 mg PO BID Qty: 20 0RF Continued clopidogrel 75 mg tablet 75 mg PO QAM Qty: 90 3RF gemfibrozil 600 mg tablet 600 mg PO BID Qty: 180 3RF Hold Instructions: On hold due to icosapent Rx Instructions: TAKE 1 TABLET TWICE DAILY 1/2 HOUR BEFORE MEALS, (BEFORE BREAKFAST & SUPPER) FOR CHOLESTEROL enalapril maleate 20 mg tablet 20 mg PO BID Qty: 180 0RF icosapent ethyl 1 gram capsule 2 g PO BID Qty: 120 5RF metoprolol succinate 100 mg tablet extended release 24 hr 100 mg PO QAM Qty: 90 3RF tadalafil (pulm. hypertension) 20 mg tablet 20 mg PO DAILY PRN (Reason: sexual activity) Qty: 20 3RF Rx Instructions: administer approximately 30min before sexual activity; do not use more than 1 dose per 24hrs rosuvastatin 40 mg tablet 40 mg PO HS Qty: 90 3RF aspirin [Adult Low Dose Aspirin] 81 mg tablet,delayed release (DR/EC) 81 mg PO QAM Discharge Orders: Discharge Order (Routine); Ordered 07/03/24 Ordered By: Shira Thayer Admission Data Admit Date/Time: 07/02/24 23:55 Attending Provider: Spike Vergara Admit Provider: Anatoliy Moss Primary Care Provider: Vitaliy Hoffman V. Other Providers: Rocael Black; Kale Washington Other Interventions: Discharge Summary Assessment (RN) Last Done: 07/03/24 16:34 Hospital Stay Data Consultations 07/02/24 23:13 ED Decision to Admit Stat 07/03/24 14:24 Consult Cardiology Routine Diagnostic Imagining Performed Chest X-Ray 07/02/24 19:18 EXAM: Portable AP chest radiograph TECHNIQUE: AP portable radiograph of the chest was obtained. INDICATION: Shortness of breath Comparison: Chest radiograph August 16, 2023 FINDINGS: LINES and TUBES: CARDIOVASCULAR: Cardiac silhouette is stably enlarged in size. LUNGS/PLEURA: Mild pulmonary vascular congestion. No focal consolidation identified. No significant pleural fluid. No discernible pneumothorax. OSSEOUS/OTHER: No displaced acute osseous process identified. ACDF hardware. IMPRESSION: Mild congestive changes of the cardiovascular system which appears similar to previous radiograph from August 16, 2023. Electronically signed by Levi Gagnon 07-02-2024 8:12 PM Chest X-Ray 07/03/24 09:54 XR chest 1V portable CLINICAL HISTORY: f/u pulm congestion COMPARISON STUDY: 07/02/2024 FINDINGS: Stable mild cardiomegaly without pulmonary vascular congestion. No effusion, consolidation, or pneumothorax. IMPRESSION: No acute findings. ACT 112: Negative or not required by law. Electronically signed by: Ismael Cabrera M.D. 07/03/2024 11:23 AM ECHOCARDIOGRAM 07/03/2024 The study was technically difficult. Compared to prior study, there is no significant change. This was essentially a NORMAL study. Pending Results Patient Have Any Pending Studies at Discharge: Yes Discharge Instructions Given to Patient (Per Discharging Provider) You have been hospitalized for chest pain. Also found to be positive for RSV, likely from sick family member. Chest xray did not show any pneumonia and you have been on room air. Please continue incentive spirometer (take with you) and use to prevent development of bacterial pneumonia. Troponin (enzyme that measures damage to cardiac tissues) was minimally elevated and decreased on repeat testing. Recommend continuing to monitor your blood pressure, low salt diet, and improvement in diet for weight loss encouraged and should follow up with industrial sociologist at discharge to consider outpatient stress testing in the future with Dr Alcantara. ECHO (ultrasound of the heart) did NOT show any wall motion abnormalities that would be worrisome as acute cardiac event. Please follow up with primary care in the next 7-10 days after discharge to monitor your progress as well as cardiology/Dr Alcantara as discussed and will plan for outpatient stress testing given recommendation from Dr Null while inpatient. Please return to the ER with any increased shortness of breath, chest pain, fever/chills, or for any other symptoms concerning for you. It has been a pleasure being a part of the medical team providing for you while you have been in the hospital. Take care! Total Time Total Time Spent Total Time Spent (In Minutes): 50 Coding Level of Care Code 00433 INP/OBS DISCH >30 MIN Diagnoses Chest pain R07.89 Chest pain type: other chest pain Elevated troponin R79.89 RSV (respiratory syncytial virus infection) B33.8 Antiplatelet or antithrombotic long-term use Z79.02 Nocturnal hypoxemia G47.34 Severe obstructive sleep apnea G47.33 Prediabetes R73.03 Primary hypertension I10 Hypertension type: primary hypertension Coronary artery disease involving benton coronary artery of benton heart without angina pectoris I25.10 Associated angina: without angina Coronary Disease-Associated Artery/Lesion type: benton artery [place] vs. transplanted heart: benton heart S/P coronary artery stent placement Z95.5 Hyperlipidemia, unspecified hyperlipidemia type E78.5 Hyperlipidemia type: unspecified
[2024-07-03 16:36] VITALS: BP 156/96; PULSE 74
[2024-07-03] MEDS ORDERED: ROSUVASTATIN CALCIUM 20 MG TAB PO SCH (21:00)
--- NOTE | 2024-07-05 16:14 | Electrocardiogram Report ---
Test Reason : Blood Pressure : */* mmHG Vent. Rate : 76 BPM Atrial Rate : 76 BPM P-R Int : 156 ms QRS Dur : 100 ms QT Int : 400 ms P-R-T Axes : 54 -1 -41 degrees QTcB Int : 450 ms Poor data quality, interpretation may be adversely affected Normal sinus rhythm Normal ECG When compared with ECG of 02-Jul-2024 19:14, (unconfirmed) Incomplete right bundle branch block is no longer Present Confirmed by Kale Washington ([id number]) on 07/05/2024 4:14:18 PM Referred By: REFERRED SELF Confirmed By: Kale Washington
--- NOTE | 2024-07-05 17:04 | Electrocardiogram Report ---
Test Reason : Blood Pressure : */* mmHG Vent. Rate : 92 BPM Atrial Rate : 92 BPM P-R Int : 156 ms QRS Dur : 98 ms QT Int : 368 ms P-R-T Axes : 56 -21 52 degrees QTcB Int : 455 ms Normal sinus rhythm Incomplete right bundle branch block Nonspecific ST abnormality Abnormal ECG When compared with ECG of 16-Aug-2023 09:48, (unconfirmed) No significant change was found Confirmed by Kale Washington ([id number]) on 07/05/2024 5:04:06 PM Referred By: REFERRED SELF Confirmed By: Kale Washington
== END 2024-07-03 18:00 | disposition home or self-care (01) | DRG 313 ==
LOC: ED 19:04 → INTOOBSV 23:55 → SUATTDRO 23:55 → 2N 07-03

== ENCOUNTER 2025-03-04 20:20 | Inpatient (IN) ==
--- NOTE | 2025-03-04 20:33 | Emergency Department Note ---
Impression & Plan Elevated troponin, CAD (coronary artery disease), Unstable angina ED Provider Note NAME: WES STEVENS AGE: 49 SEX: M : 1975 ARRIVES VIA: Walk-In INFORMANT: Patient, ED PROVIDER(S): Rolando José MD CHIEF COMPLAINT: Chest pain MEDICAL DECISION MAKING: Patient presents due to concern for chest pain. IV was established and blood work was obtained. Patient was noted to be little tachycardic as well as some associated hypertension. The patient was ordered to see if he is evening with Ranexa as well as enalapril as he had not taken meds this evening. The patient upon reassessment still without chest pain. Normal white count versus a normal hemoglobin. Kidney function is unremarkable. Mild hypokalemia noted. No troponin of 35.3. Patient's chest x-ray does not show evidence of obvious pneumonia. Patient still significantly hypertensive and was ordered Nitropaste as well as 1 sublingual nitro. I did speak to the on-call hospital service Dr. Martinez and the patient was admitted to the medicine service. Additional blood pressure control managed by the inpatient service. Dr. Martinez inpatient medicine service. Patient without chest pain do not believe he is an emergent cardiac cath candidate. Patient did have recent cardiac catheterization in January. Discussion w/ other healthcare providers: Dr. Martinez inpatient medicine service Prior /Outside records reviewed: I reviewed part of a cardiac catheterization report from Dr. Ramos from January 25. The patient was treated for an NSTEMI at that time and had an unsuccessful attempt at PCI of subtotal mid RPDA occlusion. Recommended medical management that time. Patient did have a cardiology visit note from February [address] Clayton. They did note the patient did have amlodipine added to his daily regimen. Was discussion about increasing his Ranexa to 1000 mg. Differential diagnosis: Cardiac ischemia, aortic dissection, pulmonary embolism, pneumothorax, pneumonia, pericarditis, myocarditis, GERD, cholecystitis, pancreatitis, musculoskeletal, as well as other pathologies were considered. Diagnostics, as interpreted by me: ECG: Sinus tachycardia, rate of 108, normal QRS, left axis deviation Q-wave noted in lead III no ST elevations. Cardiac monitoring: An order was placed for continuous cardiac monitoring. The monitor shows a rate of 102 with tachycardic and regular rhythm. Patient was placed on pulse oximetry Medical decision rules: None Imaging studies: I informally interpreted the patient's chest x-ray with cardiomegaly but no obvious pneumonia with formal report to follow. HPI: Patient presents due to concern for left-sided chest pain that radiated to the left arm. The patient states that this began while at rest and was just seated. The patient denies any nausea or vomiting and no diaphoresis. Reports prior history of CAD status post stents. The patient did not take anything for symptoms at home. Family does report that he had a recent cardiac catheterization about a month ago. Review of this shows that he had a subtotal occlusion that was unable to be stented. Recommended medical management. The patient is followed up with his trauma coordinator and they report that they did makes medication changes to his blood pressure as it was elevated. Patient denies any increase in salt or processed foods in the diet. Patient states that he is currently chest pain-free. He states that the chest pain lasted about 30 minutes and was aching nature left-sided with radiation to left arm. Denies any leg swelling or calf pain. PAST MEDICAL HISTORY: See Below PAST SURGICAL HISTORY: See Below SOCIAL HISTORY: See Below HOME MEDICATIONS: See Below ALLERGIES: See Below VITALS: See Below PHYSICAL EXAMINATION: GENERAL: NAD, non-toxic. EYE EXAM: Normal conjunctiva. PERRL, no anisocoria and EOM's grossly intact w/o pain. OROPHARYNX: Moist mucus membranes, grossly normal dentition. NECK: Trachea midline, no stridor. LUNGS: Clear to auscultation. Normal chest wall mechanics. HEART: Tachycardic and regular, no MRG. ABDOMEN: Abdomen soft, non-tender, no masses, no rebound or guarding. BACK: No CVA TTP. SKIN: No rashes and no bruising. UPPER EXTREMITIES: Upper extremities are grossly normal. LOWER EXTREMITIES: Grossly normal, no edema. NEURO EXAM: Awake and alert, follows commands, no obvious facial asymmetry, normal speech, moves all 4 extremities. Past Med/Surg History Problem List (Updated 03/05/25 @ 00:58 by Rolando José MD) Unstable angina (Acute) Hypertensive urgency Hypokalemia Elevated troponin (Acute) Unstable angina Drug monitoring performed Hypertension (Acute) Back pain (Acute) Obesity Antiplatelet or antithrombotic long-term use (Acute) Erectile dysfunction Nocturnal hypoxemia Severe obstructive sleep apnea (Chronic) Prediabetes Hydronephrosis of right kidney (Acute) Insufficient sleep syndrome Hypersomnia History of diverticulitis Tendinitis of right rotator cuff Right shoulder pain Hyperglycemia Colon polyps Anemia Chronic diarrhea S/P coronary artery stent placement (Chronic) CAD (coronary artery disease) (Chronic) s/p cardiac cath 06/21/19 for abnormal DSE. TIMOTHY to mid LAD across origin of 2nd diagonal. TIMOTHY to Mid LAD overlapping with the proximal aspect of the initial stent. Residual narrowing and dissection noted at the ostium the 2nd diagonal. This was stented with a 3 x 12 mm [place] drug-eluting stent. Hyperlipidemia (Chronic) Hypertension Left hip pain (Chronic) Low back pain (Chronic) Mitral regurgitation (Chronic) Nephrolithiasis (Acute) Overweight (Chronic) Periodic limb movement disorder (Chronic) Restless legs syndrome (Chronic) Systolic murmur (Chronic) Tachycardia (Acute) DX 01/2018 AND WATCHING Medical History Non-ST elevation (NSTEMI) myocardial infarction RSV (respiratory syncytial virus infection) Hospital discharge follow-up CAD (coronary artery disease) s/p cardiac cath 06/21/19 for abnormal DSE. TIMOTHY to mid LAD across origin of 2nd diagonal. TIMOTHY to Mid LAD overlapping with the proximal aspect of the initial stent. Residual narrowing and dissection noted at the ostium the 2nd diagonal. This was stented with a 3 x 12 mm [place] drug-eluting sten Mitral regurgitation Restless legs syndrome (RLS) History of tachycardia Prediabetes Hx of renal calculi RSV (respiratory syncytial virus infection) currently on predisone and zithromax, test pos on 07/03/24- admit to [facility]- still has slight congestion and cough Chest pain hx- admit to [facility]- RSV pos, follow up with doris as op 07/2024 Depression with anxiety Sleep apnea cpap Acute URI of multiple sites none recent Pain of left clavicle On anticoagulant therapy plavix daily Hyperlipidemia Cardiac murmur follows with dr. george Abnormal dobutamine stress echocardiogram History of diverticulitis of colon Lumbago Facet syndrome, lumbar Osteoarthritis Hypertension follows with Dr. George Ureterolithiasis hx Surgical History S/P cystoscopy with ureteral stent placement History of esophagogastroduodenoscopy (EGD) History of cardiac cath (06/21/19) 06/21/2019 @ [facility]---3 TIMOTHY stents placed by Dr. Ramos- follows with zoda Status post arthroscopy of hip left History of fusion of cervical spine C5-6 FUSION- full rom History of colectomy (04/2010) sigmoid 04/2010 Dr. Grant @ [facility] 10cm removed History of tooth extraction History of tonsillectomy Status post insertion of drug-eluting stent into left anterior descending (LAD) artery for coronary artery disease TIMOTHY x3 - 06/21/2019 @ [facility] by Dr. Ramos--d/t abnormal stress test History of lithotripsy multiple History of colonoscopy Family History Brother Myocardial infarction [place] - age 14 Other No family history of adverse response to anesthesia No significant family history Denies family history of Ovarian cancer Prostate cancer Diabetes Heart disease Breast cancer Lung cancer Colorectal cancer Stroke Social History Smoking Status: Never smoker Second Hand Exposure: No; Do You Dip or Chew Tobacco: No; Tobacco Cessation Education Requested by Patient: No Hx Alcohol Use: No Hx Substance Use: No Preferred Language: Tajik Communication Ability: Effective Visual Impairment: Limited Hearing Ability: Normal [facility] Psychiatrist Required: No Beliefs That Will Affect Care: None marital status: Current Living Situation: Spouse current occupational status: employed current occupation: [employer] How many Children do You have: 1 Other Information That Helps Us Care for You: No Feels Safe at Home: Yes Safety Concerns: Feels Safe At This Time Childhood Exposure to Second-Hand Smoke: No Diet: regular caffeine: Yes during the past year weight has: remained stable Dental Care, Regularly: Yes Physical Activity Frequency: Does not Exercise Seatbelt Use: never Sunscreen Use: No Do you think of yourself as: straight/heterosexual Sexual Activity: has been sexually active within the last 12 months Gender Identity: Male Assistive Devices: Oxygen - at Night Allergies Allergies Allergy/AdvReac Type Severity Reaction Status Date / Time tramadol Allergy Mild HIVES Verified 02/13/25 09:31 Home Meds Home Medications Medication Instructions Recorded Confirmed aspirin 81 mg tablet,delayed 81 mg PO QAM 09/26/19 03/04/25 release (Adult Low Dose Aspirin) Oxygen Home 01/29/25 03/04/25 amlodipine 2.5 mg tablet 2.5 mg PO QAM 03/04/25 03/04/25 omega [id number]-[id number]-fish oil 900 1 cap PO QAM 03/04/25 03/04/25 mg-1,400 mg capsule,delayed release (Fish Oil) Previous Rx's Medication Instructions Recorded rosuvastatin 40 mg tablet 40 mg PO HS #90 tabs 08/16/23 clopidogrel 75 mg tablet 75 mg PO QAM #90 tabs 07/06/24 enalapril maleate 20 mg tablet 20 mg PO BID #180 tabs 08/22/24 metoprolol succinate 100 mg 150 mg (1.5 x 100 mg) PO QAM #45 01/26/25 tablet,extended release 24 hr tabs ranolazine 500 mg tablet,extended 500 mg PO BID #180 tabs 01/30/25 release,12 hr nitroglycerin 0.4 mg sublingual 0.4 mg sublingual Q5M PRN chest 02/13/25 tablet pain #25 tabs Results & Data (ED) Vital Signs Vital Signs - 24 hr 03/04/25 20:21 03/04/25 20:29 03/04/25 20:36 Temperature 36.6 C Temperature Source Temporal Artery Scan Pulse Rate 116 H 106 H Pulse Rate [Right Finger] 104 H Respiratory Rate 18 17 Respiratory Effort / Characteristics Non-Labored Spontaneous Respiratory Depth Normal Respiratory Pattern Regular Blood Pressure 208/133 H Blood Pressure [Right Arm] 209/126 H Blood Pressure Mean 158 Blood Pressure Mean [Right Arm] 153 Blood Pressure Position Sitting Pulse Oximetry 96 95 Oxygen Delivery Method Room Air Room Air Sepsis Recent Fever Within 48 Hours No Sepsis New/Unexplained Change in Mental Status N/A Sepsis Action Taken by Nursing No Action Required 03/04/25 20:45 03/04/25 20:45 03/04/25 21:31 Temperature Temperature Source Pulse Rate Pulse Rate [Right Finger] 103 H Respiratory Rate 20 Respiratory Effort / Characteristics Non-Labored Spontaneous Respiratory Depth Normal Respiratory Pattern Regular Blood Pressure Blood Pressure [Right Arm] 222/139 H Blood Pressure Mean Blood Pressure Mean [Right Arm] 166 Blood Pressure Position Pulse Oximetry 95 95 96 Oxygen Delivery Method Room Air Room Air Room Air Sepsis Recent Fever Within 48 Hours Sepsis New/Unexplained Change in Mental Status Sepsis Action Taken by Nursing 03/04/25 22:12 Temperature Temperature Source Pulse Rate Pulse Rate [Right Finger] 101 H Respiratory Rate 20 Respiratory Effort / Characteristics Non-Labored Spontaneous Respiratory Depth Normal Respiratory Pattern Regular Blood Pressure Blood Pressure [Right Arm] 202/130 H Blood Pressure Mean Blood Pressure Mean [Right Arm] 154 Blood Pressure Position Pulse Oximetry 94 Oxygen Delivery Method Nasal Cannula Sepsis Recent Fever Within 48 Hours Sepsis New/Unexplained Change in Mental Status Sepsis Action Taken by Long Term Medications Current Medication List: was personally reviewed by me Laboratory Data Attestation: I reviewed the patient's lab results. 03/04/25 20:37 03/04/25 20:37 Lab Results 03/04/25 Range/Units 20:37 WBC 8.56 (4.8-10.8) K/ul RBC 4.59 L (4.70-6.10) M/uL Hgb 13.9 L (14.0-18.0) g/dl Hct 40.3 L (42.0-52.0) % MCV 87.8 (80.0-100.0) fL MCH 30.3 (25.0-34.0) pg MCHC 34.5 (32.0-36.0) g/dL RDW Std Deviation 43.3 (36.4-46.3) fL RDW Coeff of Iain 13.4 (11.5-14.5) % Plt Count 237 (130-400) K/uL MPV 9.7 (9.4-12.4) fL Immature Gran % (Auto) 0.1 % Neut % (Auto) 55.6 % Lymph % (Auto) 33.4 % Webb % (Auto) 8.8 % Eos % (Auto) 1.6 % Baso % (Auto) 0.5 % Neut # (Auto) 4.76 (1.40-6.50) K/uL Lymph # (Auto) 2.86 (1.20-3.40) K/uL Webb # (Auto) 0.75 H (0.11-0.59) K/uL Eos # (Auto) 0.14 (0.00-0.50) K/uL Baso # (Auto) 0.04 (0.00-0.20) K/uL Immature Gran # (Auto) 0.01 (0.01-0.20) K/uL Sodium 136 (136-145) mmol/L Potassium 3.2 L (3.5-5.1) mmol/L Chloride 97 L (98-107) mmol/L Carbon Dioxide 30 (21-32) mmol/L Anion Gap 9 (3-11) BUN 22 (6-23) mg/dl Creatinine 1.30 (0.6-1.4) mg/dl Est Cr Clr Drug Dosing 102.0 ml/min eGFR 66.51 BUN/Creatinine Ratio 16.9 (10-20) Glucose 130 H (70-99(Fasting)) mg/dl Calcium 9.5 (8.6-10.3) mg/dl Magnesium 1.9 (1.7-2.4) mg/dl Total Bilirubin 0.5 (0.2-1.0) mg/dl AST 20 (13-39) U/L ALT 30 (7-52) U/L Alkaline Phosphatase 99 (34-104) U/L Troponin I High Sens 35.3 H (0-20) pg/ml Total Protein 7.4 (6.0-8.3) gm/dl Albumin 4.2 (3.4-5.0) gm/dl Globulin 3.2 (2.5-4.0) gm/dl Albumin/Globulin Ratio 1.3 (0.9-2) Lipase 27 (11-82) U/L Administered Medications Potassium Chloride (K Brian / Wtr) 10 meq in 100 mls @ 100 mls/hr IV Q1H ANIBAL Stop: 03/05/25 01:14 Last Admin: 03/04/25 23:58 Dose: 100 mls/hr Documented By: igor Infusion: 03/04/25 23:33 Dose: Infused Documented By: igor Admin: 03/04/25 22:33 Dose: 100 mls/hr Documented By: HANNAH Lactated Ringer's (Lr) 500 mls @ 80 mls/hr IV .Q6H15M ANIBAL Stop: 03/05/25 04:29 Last Admin: 03/04/25 22:32 Dose: 80 mls/hr Documented By: HANNAH Discontinued Medications Enalapril Maleate (Enalapril Maleate 10 Mg Tab) 20 mg PO BID STA Stop: 03/04/25 20:43 Last Admin: 03/04/25 21:03 Dose: 20 mg Documented By: HANNAH Magnesium Sulfate/Dextrose (Magnesium Sulfate / D5w) 1 gm in 100 mls @ 50 mls/hr IV ONE ONE Stop: 03/05/25 00:11 Last Admin: 03/04/25 22:32 Dose: 50 mls/hr Documented By: HANNAH Metoprolol Succinate (Metoprolol Succ 50mg Ext Rel Tab) 50 mg PO NOW STA Stop: 03/04/25 23:06 Last Admin: 03/05/25 00:12 Dose: 50 mg Documented By: igor Metoprolol Tartrate (Metoprolol Tartrate 1 Mg/Ml Vial) 5 mg IV NOW STA Stop: 03/04/25 22:19 Last Admin: 03/04/25 22:27 Dose: 5 mg Documented By: HANNAH Nitroglycerin (Nitroglycerin Sl 0.4 Mg/Tab Tab) 0.4 mg SL NOW STA Stop: 03/04/25 21:25 Last Admin: 03/04/25 21:29 Dose: 0.4 mg Documented By: HANNAH Nitroglycerin (Nitroglycerin 2% Ointment 30gm Tube) 1 inch EXT NOW ONE Stop: 03/04/25 21:25 Last Admin: 03/04/25 21:29 Dose: 1 inch Documented By: HANNAH Potassium Chloride (Potassium Chloride Crtab 20 Meq Tabcr) 40 meq PO NOW STA Stop: 03/04/25 22:13 Last Admin: 03/04/25 22:25 Dose: 40 meq Documented By: HANNAH Ranolazine (Ranolazine 500 Mg Er Tab) 500 mg PO BID STA Stop: 03/04/25 20:43 Last Admin: 03/04/25 21:03 Dose: 500 mg Documented By: HANNAH Discharge Plan Visit Data Chief Complaint: Chest Pain Stated Complaint: CHEST PAIN SHOULDER PAIN ED Provider: Rolando José Discharge Problem: Elevated troponin, CAD (coronary artery disease), Unstable angina Patient Disposition: Admitted As Inpatient Condition: Good Discharge Instructions Interventions: ED Discharge Assessment Last Done: 03/04/25 22:59 Discharge Problem: CAD (coronary artery disease) Qualifiers: Coronary Disease-Associated Artery/Lesion type: [place] artery [place] vs. transplanted heart: [place] heart Associated angina: unspecified whether angina present Qualified Code(s): I25.10 - Atherosclerotic heart disease of [place] coronary artery without angina pectoris
[2025-03-04 20:55] LABS: Hematocrit (blood only) 40.3 % (42.0-52.0); Hemoglobin 13.9 g/dl (14.0-18.0); Immature Granulocytes # (auto) 0.01 K/uL (0.01-0.20); Immature Granulocytes % (auto) 0.1 %; Mean Corpuscular Hemoglobin 30.3 pg (25.0-34.0); Mean Corpuscular Volume 87.8 fL (80.0-100.0); Platelet Count 237 K/uL (130-400); RDW Standard Deviation 43.3 fL (36.4-46.3); Red Blood Count 4.59 M/uL (4.70-6.10); White Blood Count 8.56 K/ul (4.8-10.8)
[2025-03-04] MEDS: ENALAPRIL MALEATE 10 MG TAB PO STA (21:03)
[2025-03-04] MEDS: RANOLAZINE 500 MG ER TAB PO STA (21:03)
[2025-03-04 21:18] LABS: Alanine Aminotransferase 30.0 U/L (7-52); Albumin Globulin Ratio 1.3 (0.9-2); Albumin Level 4.2 gm/dl (3.4-5.0); Alkaline Phosphatase 99.0 U/L (34-104); Anion Gap 9.0 (3-11); Bilirubin,Total 0.5 mg/dl (0.2-1.0); Blood Urea Nitrogen 22.0 mg/dl (6-23); Calcium 9.5 mg/dl (8.6-10.3); Carbon Dioxide 30.0 mmol/L (21-32); Chloride 97.0 mmol/L (98-107); Creatinine Clr Calc Pharmacy 102.0 ml/min; Globulin 3.2 gm/dl (2.5-4.0); Glucose 130.0 mg/dl (70-99(Fasting)); Lipase 27.0 U/L (11-82); Potassium 3.2 mmol/L (3.5-5.1); Sodium 136.0 mmol/L (136-145); Total Protein 7.4 gm/dl (6.0-8.3)
[2025-03-04] MEDS: NITROGLYCERIN SL 0.4 MG/TAB TAB SL STA (21:29)
[2025-03-04] MEDS: NITROGLYCERIN 2% OINTMENT 30GM TUBE EXT ONE (21:29)
[2025-03-04 22:00] LABS: Magnesium 1.9 mg/dl (1.7-2.4)
--- NOTE | 2025-03-04 22:10 | History & Physical Report ---
Date of Service March 04, 2025 Assessment & Plan (1) Unstable angina: (2) CAD (coronary artery disease): (3) Elevated troponin: (4) Hypokalemia: (5) Hypertensive urgency: Plan Patient is a 49-year-old male with a past medical history of CAD, HTN, HUGO, pre- DM who presented to the ED due to chest pain that began at rest and lasted for approximately 30 to 45 minutes and radiated to his left shoulder. He was found to have a troponin of 35.3 significantly elevated blood pressure (222/139). He is currently chest pain-free at time of admission. #Unstable angina/elevated troponin/CAD - CP resolved at time of admission. Initial troponin 35.3. EKG without ischemic changes. K+ 3.2, mag 1.9. -Hx PCI to LAD and second diagonal 2019. -Patient was admitted from 01/24 to 01/26 with unstable angina and NSTEMI, initial trop 100 which downtrended. He was started on a heparin drip. Echocardiogram 01/24 revealed EF 55 to 60%, moderate LVH, no wall motion abnormality. Initial EKG was without ischemic changes however patient then developed inferior and ant erior lateral T wave inversions 01/25 so he underwent a cardiac catheterization which showed patent stents with peripheral narrowing and mid RPDA occlusion; there was an attempt made for PCI of the PDA which was unsuccessful. They opted for medical management of severe CAD and increased his metoprolol 100 mg daily to 150 mg daily. -outpt independent driver, Dr. George, started on Ranexa 500 mg BID 01/29 and amlodipine 2.5 mg daily 02/13. There was discussion about if patient has persistent chest pain could consider increasing Ranexa to 1000 mg twice daily or consider adding long-acting nitrate such as isosorbide however patient with poor tolerance to Nitro-Bid during recent admission (hypotension and headache). - given sublingual nitroglycerin x 1 and 1 inch Nitropaste in ED Will defer further nitrates as patient with hypotension and headache during recent admission IV Lopressor 5 Mg x 1 on admission TSH ordered replete electrolytes - 3 bags K rider, 40 mEq p.o. KCl, 1G IV magnesium Will continue metoprolol succinate 150 mg QAM and add addition of metoprolol succinate 50 mg HS PO 03/04 - consult cardiology EKG with chest pain as needed Trend troponin every 6 hours Trend BMP and magnesium - continue aspirin, Plavix, statin, Vasotec, metoprolol - is to start Repatha however processing with insurance #hypertensive urgency/HTN BP as high as 222/139 in the ED, did miss evening medications. Significantly hypertensive during recent admission as well. evening medications ordered in ED Nitro glycerin as above IV Lopressor 5 mg x 1 on admission; will continue q4hr prn Addition of metoprolol succinate 50 mg p.o. HS 03/04 continue home Vasotec, metoprolol, amlodipine (started 02/13) - with persistent hypokalemia and HTN - will check renin and aldosterone levels - renal aa US ordered #Severe HUGO intolerant of home CPAP. Qualified for nocturnal oxygen during recent admission. 2L NC at bedtime ordered Should follow-up with sleep medicine in outpatient setting, likely contributing to hypertension #Pre-DM most recent A1c 5.9% Follow-up with PCP in outpatient setting VTE ppx: SCDs, low risk Dispo: PCU Admission and Anticipated Discharge Date Admission Date: 03/04/25 History of Present Illness Chief Complaint: chest pain Primary Care Provider: Vitaliy Hoffman MD Patient is a 49-year-old male with a past medical history of CAD, HTN, HUGO, pre- DM who presented to the ED due to chest pain that began at rest and lasted for approximately 30 to 45 minutes and radiated to his left shoulder. He was found to have a troponin of 35.3 significantly elevated blood pressure (222/139). He is currently chest pain-free at time of admission. Patient seen at bedside with his present. He stated at 7 PM this evening he was at rest and developed left-sided chest pain which radiated to his left shoulder and lasted 30 to 45 minutes. He denies any associated dyspnea, nausea, diaphoresis. He did not do anything to relieve his pain, it went away on its own prior to arrival. Patient stated he always has exertional chest pain however this feels different as it is more severe and radiates to his left shoulder. This does feel similar to his previous episode of chest pain that brought him into the ED 01/24 resulting in admission for NSTEMI with cardiac cath 01/25. He stated during his previous admission he waited a couple days before coming into the ER. Patient denies fever, chills, headache, dizziness, lightheadedness, rhinorrhea, sore throat, cough, dyspnea, abdominal pain, nausea, vomiting, diarrhea. He stated he is currently chest pain-free at time of admission. He denies any nicotine or alcohol use. He was due for his evening medications of Vasotec and Ranexa which were ordered by the ED. He wishes to maintain his full CODE STATUS. Previous medical records reviewed: - Patient was admitted from 01/24 to 01/26 with unstable angina and NSTEMI with initial troponin 100 which downtrended. He was started on a heparin drip. Echocardiogram 01/24 revealed EF 55 to 60%, moderate LVH, no wall motion abnormality. Initial EKG was without ischemic changes however patient then developed inferior and anterior lateral T wave inversions 01/25 so he underwent a cardiac catheterization which showed patent stents in mid LAD and second LAD (placed in 2019), with peripheral narrowing and mid RPDA occlusion; there was an attempt made for PCI of the PDA which was unsuccessful. They opted for medical management of severe CAD and increased his metoprolol 100 mg daily to 150 mg daily. - After discharge patient followed up with his outpatient independent driver, Dr. George, who started him on Ranexa 500 mg twice daily 01/29 and amlodipine 2.5 mg daily 02/13. There was discussion about if patient has persistent chest pain could consider increasing Ranexa to 1000 mg twice daily or consider adding long- acting nitrate such as isosorbide however patient with poor tolerance to Nitro- Bid during recent admission (hypotension and headache). Allergies Allergy/AdvReac Type Severity Reaction Status Date / Time tramadol Allergy Mild HIVES Verified 02/13/25 09:31 Home Medications Medication Instructions Recorded Confirmed Type aspirin 81 mg tablet,delayed 81 mg PO QAM 09/26/19 03/04/25 History release (Adult Low Dose Aspirin) rosuvastatin 40 mg tablet 40 mg PO HS #90 tabs 08/16/23 03/04/25 Rx clopidogrel 75 mg tablet 75 mg PO QAM #90 tabs 07/06/24 03/04/25 Rx enalapril maleate 20 mg tablet 20 mg PO BID #180 tabs 08/22/24 03/04/25 Rx metoprolol succinate 100 mg 150 mg (1.5 x 100 mg) PO QAM #45 01/26/25 03/04/25 Rx tablet,extended release 24 hr tabs Oxygen Home 01/29/25 03/04/25 History ranolazine 500 mg tablet,extended 500 mg PO BID #180 tabs 01/30/25 03/04/25 Rx release,12 hr nitroglycerin 0.4 mg sublingual 0.4 mg sublingual Q5M PRN chest 02/13/25 03/04/25 Rx tablet pain #25 tabs amlodipine 2.5 mg tablet 2.5 mg PO QAM 03/04/25 03/04/25 History omega 9-[id number]-fish oil 900 1 cap PO QAM 03/04/25 03/04/25 History mg-1,400 mg capsule,delayed release (Fish Oil) Past Med/Surg History Problem List (Updated 03/05/25 @ 00:58 by Rolando José MD) Unstable angina (Acute) Hypertensive urgency Hypokalemia Elevated troponin (Acute) Unstable angina Drug monitoring performed Hypertension (Acute) Back pain (Acute) Obesity Antiplatelet or antithrombotic long-term use (Acute) Erectile dysfunction Nocturnal hypoxemia Severe obstructive sleep apnea (Chronic) Prediabetes Hydronephrosis of right kidney (Acute) Insufficient sleep syndrome Hypersomnia History of diverticulitis Tendinitis of right rotator cuff Right shoulder pain Hyperglycemia Colon polyps Anemia Chronic diarrhea S/P coronary artery stent placement (Chronic) CAD (coronary artery disease) (Chronic) s/p cardiac cath 06/21/19 for abnormal DSE. TIMOTHY to mid LAD across origin of 2nd diagonal. TIMOTHY to Mid LAD overlapping with the proximal aspect of the initial stent. Residual narrowing and dissection noted at the ostium the 2nd diagonal. This was stented with a 3 x 12 mm Sancho drug-eluting stent. Hyperlipidemia (Chronic) Hypertension Left hip pain (Chronic) Low back pain (Chronic) Mitral regurgitation (Chronic) Nephrolithiasis (Acute) Overweight (Chronic) Periodic limb movement disorder (Chronic) Restless legs syndrome (Chronic) Systolic murmur (Chronic) Tachycardia (Acute) DX 01/2018 AND WATCHING Medical History Non-ST elevation (NSTEMI) myocardial infarction RSV (respiratory syncytial virus infection) Hospital discharge follow-up CAD (coronary artery disease) s/p cardiac cath 06/21/19 for abnormal DSE. TIMOTHY to mid LAD across origin of 2nd diagonal. TIMOTHY to Mid LAD overlapping with the proximal aspect of the initial stent. Residual narrowing and dissection noted at the ostium the 2nd diagonal. This was stented with a 3 x 12 mm Sancho drug-eluting sten Mitral regurgitation Restless legs syndrome (RLS) History of tachycardia Prediabetes Hx of renal calculi RSV (respiratory syncytial virus infection) currently on predisone and zithromax, test pos on 07/03/24- admit to [facility]- still has slight congestion and cough Chest pain hx- admit to [facility]- RSV pos, follow up with doris as op 07/2024 Depression with anxiety Sleep apnea cpap Acute URI of multiple sites none recent Pain of left clavicle On anticoagulant therapy plavix daily Hyperlipidemia Cardiac murmur follows with dr. george Abnormal dobutamine stress echocardiogram History of diverticulitis of colon Lumbago Facet syndrome, lumbar Osteoarthritis Hypertension follows with Dr. George Ureterolithiasis hx Surgical History S/P cystoscopy with ureteral stent placement History of esophagogastroduodenoscopy (EGD) History of cardiac cath (06/21/19) 06/21/2019 @ [facility]---3 TIMOTHY stents placed by Dr. Ramos- follows with doris Status post arthroscopy of hip left History of fusion of cervical spine C5-6 FUSION- full rom History of colectomy (04/2010) sigmoid 04/2010 Dr. Grant @ [facility] 10cm removed History of tooth extraction History of tonsillectomy Status post insertion of drug-eluting stent into left anterior descending (LAD) artery for coronary artery disease TIMOTHY x3 - 06/21/2019 @ [facility] by Dr. Ramos--d/t abnormal stress test History of lithotripsy multiple History of colonoscopy Family History Brother Myocardial infarction [place] - age 14 Other No family history of adverse response to anesthesia No significant family history Denies family history of Ovarian cancer Prostate cancer Diabetes Heart disease Breast cancer Lung cancer Colorectal cancer Stroke Social History Smoking Status: Never smoker Second Hand Exposure: No; Do You Dip or Chew Tobacco: No; Tobacco Cessation Education Requested by Patient: No Hx Alcohol Use: No Hx Substance Use: No Preferred Language: Tristanian Communication Ability: Effective Visual Impairment: Limited Hearing Ability: Normal Grated Cheese Maker Required: No Beliefs That Will Affect Care: None marital status: Current Living Situation: Spouse current occupational status: employed current occupation: [employer] How many Children do You have: 1 Other Information That Helps Us Care for You: No Feels Safe at Home: Yes Safety Concerns: Feels Safe At This Time Childhood Exposure to Second-Hand Smoke: No Diet: regular caffeine: Yes during the past year weight has: remained stable Dental Care, Regularly: Yes Physical Activity Frequency: Does not Exercise Seatbelt Use: never Sunscreen Use: No Do you think of yourself as: straight/heterosexual Sexual Activity: has been sexually active within the last 12 months Gender Identity: Male Assistive Devices: Oxygen - at Night Review of Systems Review of Systems: see HPI Physical Exam Physical Exam: The patient is awake, alert and oriented 3, well developed and well nourished, normocephalic and atraumatic, in no acute distress. Non-toxic appearing. HEENT- EOMI, mucous membranes moist. Hearing grossly intact. Heart-normal S1 and S2. No murmurs, rubs or gallops. Lungs-clear bilaterally, no respiratory distress, no accessory muscle use. Abdomen-normal bowel sounds and soft. No ascites noted. Non-tender. Extremities- no clubbing, cyanosis, or edema. Rheumatologic-normal range of motion. Psychiatric-normal affect. Results & Data Results & Data Vital Signs (Past 12 Hours) Vital Signs Temp Pulse Pulse Resp BP BP Pulse Ox 03/04/25 21:31 103 H 20 222/139 H 96 03/04/25 20:45 95 03/04/25 20:45 95 03/04/25 20:36 104 H 17 209/126 H 95 03/04/25 20:29 106 H 03/04/25 20:21 36.6 C 116 H 18 208/133 H 96 O2 Del Method 03/04/25 21:31 Room Air 03/04/25 20:45 Room Air 03/04/25 20:45 Room Air 03/04/25 20:36 Room Air 03/04/25 20:29 03/04/25 20:21 Room Air Laboratory Results reviewed CBC, CMP, lipase, troponin Ordered magnesium and TSH Diagnostic Findings CXR pending at time of admission however personally reviewed and similar to previous Medications Administered EdRanexa 500 mg p.o., Vasotec 20 Mg p.o., sublingual nitroglycerin x 1, 1 inch Nitro-Bid Admission3 bags K rider, 1G IV magnesium, LR at 80 mL/hour x 500 mL, 40 mEq KCl p.o., Lopressor 5 Mg IV ECG Additional Comments: sinus tachycardia, rate 108 T wave inversions resolved No ischemic changes QTc 47 Code Status & VTE Plan Code Status full code VTE Prophylaxis Plan VTE Prophylaxis will be ordered: Yes Supervising Physician Co-Signing Physician Notes Attending addendum: I have physically seen this patient, have supervised the HANNAH's activities, and agree with the H&P unless as otherwise noted. Assessment and Plan: The patient is a 49-year-old male with past medical history including CAD, hypertension, HUGO, prediabetes mellitus, history of PCI to LAD and second diagonal in 2019. He presented to the emergency department due to chest pain that began at rest and lasted for approximately 30 to 45 minutes, with radiation to his left shoulder. Troponin was 35.3 with follow-up pending, and presenting blood pressure was 222/139. At the time of this evaluation, he was chest pain- free. Unstable angina/elevated troponin/CAD/history of stents x 2/hypertension- The patient will be admitted to telemetry for serial cardiac enzymes, serial EKG's, cardiac rhythm monitoring History of PCI to LAD and second diagonal 2019 Most recent [facility] admission was from 01/24-01/26/2025 with unstable angina and NSTEMI. He was started on heparin drip at that time. Echocardiogram on 01/24 showed EF 55 to 60% with moderate LVH. Progression of EKG during admission led to cardiac catheterization, and an unsuccessful PCI attempt of subtotal mid RPDA occlusion. Both stents were patent at that time. Plan was to maximize medical therapy. He had his metoprolol succinate increased from 100 to 150 mg daily. He follows in the outpatient setting with cardiology Dr. George, who started him on Ranexa 500 mg twice daily on 01/29, and then added amlodipine 2.5 mg daily on 02/13. The patient has continued to have exertional chest pain during this entire interval. Plan was to increase amlodipine to 5 mg daily if 2.5 daily was tolerated, and/or increase Ranexa to 1000 mg twice daily. Patient is intolerant of nitrates due to hypotension and headache. In the emergency department this evening, patient received Nitropaste 1 inch to anterior chest wall, and nitroglycerin sublingual. Since patient's heart rate was trending in the low 100s, he was then given Lopressor 5 mg IV, and had optimization of his potassium position 3.2 on admission with 3K riders and 40 mill equivalents p.o. Magnesium 1.9, and he was given magnesium sulfate 1 g IV. Will repeat BMP and magnesium level in the a.m. Consult cardiology Hypertensive urgency/hypertension- Continuing Vasotec 20 mg p.o. twice daily Continuing metoprolol succinate 150 mg in the morning Given Lopressor 5 mg IV x 1 this evening. Add metoprolol succinate 50 mg this evening Optimize potassium and magnesium as noted above Check renin and aldosterone levels Renal artery ultrasound ordered Of note, patient's diet is likely significantly elevated in sodium, as evidenced by a cheese steak that he had prior to coming in to the ED this evening Severe HUGO- Intolerant of CPAP at home 2 L nasal cannula at bedtime Prediabetes mellitus- Hemoglobin A1c 5.9% Continue diet modifications Morbid obesity- 41.3 kg, BMI 38.9. Dietary interventions encouraged PG Care Time/CCT Total # of Minutes Spent Total Time Spent with Patient: Total time spent is greater than 50% in coordination of care (as documented) at patient's floor/unit and/or counseling patient: Coding Level of Care Code 81535 INT INP/OBS CARE 3/75MIN Diagnoses Unstable angina I20.0 Coronary artery disease involving grindstone coronary artery of grindstone heart without angina pectoris I25.10 Associated angina: without angina Coronary Disease-Associated Artery/Lesion type: grindstone artery [place] vs. transplanted heart: grindstone heart Elevated troponin R79.89 Hypokalemia E87.6 Hypertensive urgency I16.0 (2) CAD (coronary artery disease) Associated angina: without angina Coronary Disease-Associated Artery/Lesion type: grindstone artery [place] vs. transplanted heart: grindstone heart Qualified Code(s): I25.10 - Atherosclerotic heart disease of grindstone coronary artery without angina pectoris
[2025-03-04] MEDS: POTASSIUM CHLORIDE CRTAB 20 MEQ TABCR PO STA (22:25)
[2025-03-04] MEDS: METOPROLOL TARTRATE 1 MG/ML VIAL IV STA (22:27)
[2025-03-04] MEDS: LACTATED RINGER'S 500 ML IV SCH (22:32)
[2025-03-04] MEDS: MAGNESIUM SULFATE / D5W 1 GM/100 ML BAG IV ONE (22:32)
[2025-03-04] MEDS: POTASSIUM CHLORIDE / WTR 10 MEQ/100 ML PLCT IV SCH (22:33)
[2025-03-04 23:25] LABS: Thyroid Stimulating Hormone 1.468 uIu/ml (0.300-4.500)
[2025-03-04] MEDS ORDERED: ACETAMINOPHEN 325 MG TAB PO PRN (23:41)
[2025-03-04] MEDS ORDERED: METOPROLOL TARTRATE 1 MG/ML VIAL IV PRN (23:41)
[2025-03-04] MEDS ORDERED: MELATONIN 3 MG TAB PO PRN (23:41)
[2025-03-04] MEDS ORDERED: ONDANSETRON INJ 2 MG/ML 2 ML VIAL IV PRN (23:41)
[2025-03-04] MEDS ORDERED: DOCUSATE SODIUM 100 MG CAP PO PRN (23:41)
[2025-03-05] MEDS: METOPROLOL SUCC 50MG EXT REL TAB PO STA (00:12)
--- NOTE | 2025-03-05 03:48 | Ultrasound Report ---
EXAM: US duplex renal art/vein BI CLINICAL HISTORY: persistent HTN, assess for stenosis. TECHNIQUE: Bilateral renal arterial duplex was performed. Limited examination due to body habitus. One or more of the following were performed- spectral analysis, resistive index, waveform analysis, and pulsed doppler. COMPARISON: 01/23/2018 US reviewed. FINDINGS: Kidneys: The right kidney measures 14 cm and is normal in size. The left kidney measures 15 cm and is normal in size. There is no evidence of stones, cysts, or hydronephrosis bilaterally. The bilateral cortex and pelvis are normal in size. No other significant pathology is seen. The perinephric fat, fluid, and adrenal glands appear unremarkable. Aorta: The mid aorta diameter is within normal limits. The peak systolic velocity (PSV) of the proximal aorta is 75 cm/sec, which is within normal limits. There are no atherosclerotic changes throughout the visualized abdominal aorta. Renal Arteries: Parameter Right Renal Artery (RRA) Left Renal Artery (LRA) Proximal PSV/EDV (cm/sec) 134/42 68/19 Mid PSV/EDV (cm/sec) 60/19 123/36 Distal PSV/EDV (cm/sec) 69/17 76/28 Arcuate artery RI: 0.54 RI: 0.61 Renal Artery/Aorta Ratio (RAR) 1.8 1.6 Reference data: 60% stenosis, RAR 3.1:1, renal artery PSV 180 cm/s The renal artery/aorta ratio is within normal limits bilaterally. There is no detectable renal artery stenosis bilaterally. The renal veins are seen patent bilaterally. IMPRESSION: 1. There is no evidence of renal artery occlusive disease in either renal artery. 2. Kidney size is normal. 3. No significant interval changes. Electronically signed by Santosh Jalloh 03-05-2025 03:48 AM
[2025-03-05 05:52] LABS: Hematocrit (blood only) 37.4 % (42.0-52.0); Hemoglobin 12.3 g/dl (14.0-18.0); Mean Corpuscular Hemoglobin 29.1 pg (25.0-34.0); Mean Corpuscular Volume 88.6 fL (80.0-100.0); Platelet Count 207 K/uL (130-400); RDW Standard Deviation 44.4 fL (36.4-46.3); Red Blood Count 4.22 M/uL (4.70-6.10); White Blood Count 6.60 K/ul (4.8-10.8)
[2025-03-05 06:08] LABS: Anion Gap 7.0 (3-11); Blood Urea Nitrogen 24.0 mg/dl (6-23); Calcium 8.9 mg/dl (8.6-10.3); Carbon Dioxide 27.0 mmol/L (21-32); Chloride 103.0 mmol/L (98-107); Creatinine Clr Calc Pharmacy 131.2 ml/min; Glucose 119.0 mg/dl (70-99(Fasting)); Magnesium 2.1 mg/dl (1.7-2.4); Potassium 3.8 mmol/L (3.5-5.1); Sodium 137.0 mmol/L (136-145)
[2025-03-05] MEDS: METOPROLOL SUCC 50MG EXT REL TAB PO SCH ×2 (08:30→21:51)
[2025-03-05] MEDS: ENALAPRIL MALEATE 10 MG TAB PO SCH (08:30)
[2025-03-05] MEDS: ASPIRIN 81 MG ECTAB PO SCH (08:30)
[2025-03-05] MEDS: CLOPIDOGREL BISULFATE 75 MG TAB PO SCH (08:30)
[2025-03-05] MEDS: RANOLAZINE 500 MG ER TAB PO SCH (08:31)
--- NOTE | 2025-03-05 11:28 | Cardiology Consultation ---
Date of Consultation March 05, 2025 Assessment & Plan (1) Chest pain: 2. Elevated troponin 3. CADpost TIMOTHY x 2 to LAD, TIMOTHY to D2 01/2020, residual severe branch vessel disease including subtotal RPDA with collaterals 4. Hypertension 5. Dyslipidemia Here with acute episode of chest pain reminiscent of prior angina. Episode resolved before arrival at hospital but still had blood pressures up in the 220s/130s in ED. ECG unchanged, HS TropI minimally elevated With recent cardiac catheterization low suspicion for high risk CAD. Suspect troponin elevation more likely related to demand in the setting of blood pressure elevation. Will check repeat troponin, limited echo. If testing unremarkable feel okay for discharge today and recommend further titration of antianginal therapy and blood pressure medications. Repeat troponin pending, repeat limited echo Follow-up plasma renin, aldosterone Continue DAPT with aspirin, clopidogrel Increase amlodipine from 2.5 to 5 mg daily. Continue current Toprol-XL 200 mg daily, Ranexa 500 mg twice daily Continue current enalapril 20 mg twice daily Continue current statin. PCSK9 previously discussed We did discuss potential stress test to further localize ischemic territory and further assess symptoms, BP response during stress. Patient states stress test was also being considered by Dr. George and prefers to have done as an outpatient History of Present Illness Attending Physician: Mason Hurt, History of Present Illness Mr. Ritchie is a very pleasant 49 year-old male with a history of with a history of CAD post prior stents to LAD/diagonal in 2019 seen today in hospital for recurrent chest pain and elevated blood pressure. Other medical issues include hypertension, dyslipidemia, HUGO previously on CPAP. Presented to [facility] with acute onset substernal chest pain reminiscent of what previously had with HI. Symptoms began at rest and lasted for about 30 minutes before resolving spontaneously while in route to hospital. On arrival was chest pain free but blood pressures up in the 220s over 130s. ECG unchanged. HS TropI 35 up to 69 this morning. Has remained chest pain-free during hospitalization. Telemetry unremarkable. Renal artery duplex negative for stenosis. Blood pressure better controlled. Patient was hospitalized 01/2025 for NSTEMI. Underwent repeat cardiac cat heterization which revealed widely patent stents. Did have subtotal occlusion of mid small RPDA (90% stenosis in 2019). Attempted intervention to PDA was unsuccessful and decision medically managed with some [id number] collaterals. He has followed up Dr. George twice in the interim. He is now on Ranexa 500 mg twice daily as well as amlodipine 2.5 mg daily Family history: No premature CAD. Social history: Non-smoker. Lives at home with his . Has 4 children total. 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 Allergies Allergy/AdvReac Type Severity Reaction Status Date / Time tramadol Allergy Mild HIVES Verified 02/13/25 09:31 Home Medications Medication Instructions Recorded Confirmed Type aspirin 81 mg tablet,delayed 81 mg PO QAM 09/26/19 03/04/25 History release (Adult Low Dose Aspirin) rosuvastatin 40 mg tablet 40 mg PO HS #90 tabs 08/16/23 03/04/25 Rx clopidogrel 75 mg tablet 75 mg PO QAM #90 tabs 07/06/24 03/04/25 Rx enalapril maleate 20 mg tablet 20 mg PO BID #180 tabs 08/22/24 03/04/25 Rx metoprolol succinate 100 mg 150 mg (1.5 x 100 mg) PO QAM #45 01/26/25 03/04/25 Rx tablet,extended release 24 hr tabs Oxygen Home 01/29/25 03/04/25 History ranolazine 500 mg tablet,extended 500 mg PO BID #180 tabs 01/30/25 03/04/25 Rx release,12 hr nitroglycerin 0.4 mg sublingual 0.4 mg sublingual Q5M PRN chest 02/13/25 03/04/25 Rx tablet pain #25 tabs amlodipine 2.5 mg tablet 2.5 mg PO QAM 03/04/25 03/04/25 History omega 0-xni-bqk-fish oil 900 1 cap PO QAM 03/04/25 03/04/25 History mg-1,400 mg capsule,delayed release (Fish Oil) Patient History Medical History Non-ST elevation (NSTEMI) myocardial infarction RSV (respiratory syncytial virus infection) Hospital discharge follow-up CAD (coronary artery disease) s/p cardiac cath 06/21/19 for abnormal DSE. TIMOTHY to mid LAD across origin of 2nd diagonal. TIMOTHY to Mid LAD overlapping with the proximal aspect of the initial stent. Residual narrowing and dissection noted at the ostium the 2nd diagonal. This was stented with a 3 x 12 mm [place] drug-eluting sten Mitral regurgitation Restless legs syndrome (RLS) History of tachycardia Prediabetes Hx of renal calculi RSV (respiratory syncytial virus infection) currently on predisone and zithromax, test pos on 07/03/24- admit to [facility]- still has slight congestion and cough Chest pain hx- admit to [facility]- RSV pos, follow up with doris as op 07/2024 Depression with anxiety Sleep apnea cpap Acute URI of multiple sites none recent Pain of left clavicle On anticoagulant therapy plavix daily Hyperlipidemia Cardiac murmur follows with dr. george Abnormal dobutamine stress echocardiogram History of diverticulitis of colon Lumbago Facet syndrome, lumbar Osteoarthritis Hypertension follows with Dr. George Ureterolithiasis hx Surgical History S/P cystoscopy with ureteral stent placement History of esophagogastroduodenoscopy (EGD) History of cardiac cath (06/21/19) 06/21/2019 @ [facility]---3 TIMOTHY stents placed by Dr. Ramos- follows with doris Status post arthroscopy of hip left History of fusion of cervical spine C5-6 FUSION- full rom History of colectomy (04/2010) sigmoid 04/2010 Dr. Grant @ [facility] 10cm removed History of tooth extraction History of tonsillectomy Status post insertion of drug-eluting stent into left anterior descending (LAD) artery for coronary artery disease TIMOTHY x3 - 06/21/2019 @ [facility] by Dr. Ramos--d/t abnormal stress test History of lithotripsy multiple History of colonoscopy Family History Brother Myocardial infarction HI - age 14 Other No family history of adverse response to anesthesia No significant family history Denies family history of Ovarian cancer Prostate cancer Diabetes Heart disease Breast cancer Lung cancer Colorectal cancer Stroke Social History Smoking Status: Never smoker Second Hand Exposure: No; Do You Dip or Chew Tobacco: No; Tobacco Cessation Education Requested by Patient: No Hx Alcohol Use: No Hx Substance Use: No Preferred Language: Slovak Communication Ability: Effective Visual Impairment: Limited Hearing Ability: Normal Water Resources Technical Officer Required: No Beliefs That Will Affect Care: None marital status: Current Living Situation: Spouse current occupational status: employed current occupation: [employer] How many Children do You have: 1 Other Information That Helps Us Care for You: No Feels Safe at Home: Yes Safety Concerns: Feels Safe At This Time Childhood Exposure to Second-Hand Smoke: No Diet: regular caffeine: Yes during the past year weight has: remained stable Dental Care, Regularly: Yes Physical Activity Frequency: Does not Exercise Seatbelt Use: never Sunscreen Use: No Do you think of yourself as: straight/heterosexual Sexual Activity: has been sexually active within the last 12 months Gender Identity: Male Assistive Devices: Oxygen - at Night and Walker Review of Systems Review of Systems: All systems reviewed & are unremarkable except as noted in HPI & below Physical Exam Physical Exam: General: Comfortable HEENT: Sclerae anicteric Lungs: Clear to auscultation bilaterally, no crackles or wheezes Cardiac: Regular rate and rhythm, no murmurs. Vascular: Diminished radial pulses bilaterally Abdomen: Soft, nontender Extremities: Well perfused, no peripheral edema Neuro: Nonfocal Psych: Alert orient x3, normal affect and mood Results & Data Vital Signs (Past 12 Hours) Vital Signs Temp Pulse Pulse Resp BP BP Pulse Ox 03/05/25 08:03 97.5 F L 82 22 146/83 H 93 03/05/25 02:43 97.5 F L 91 H 17 151/91 H 97 03/05/25 01:03 87 171/98 H 03/05/25 00:13 171/108 H 03/04/25 23:41 98.1 F 87 18 182/115 H 93 03/04/25 23:35 88 O2 Del Method O2 Flow Rate 03/05/25 08:03 Room Air 03/05/25 02:43 Nasal Cannula 2 03/05/25 01:03 03/05/25 00:13 03/04/25 23:41 Room Air, Nasal Cannula 2 03/04/25 23:35 PG Care Time/CCT Total # of Minutes Spent Total Time Spent with Patient: Total time spent is greater than 50% in coordination of care (as documented) at patient's floor/unit and/or counseling patient: Coding Level of Care Code 14167 IN/OBS CONSULT LVL 4,60M Diagnoses Chest pain R07.89 Chest pain type: other chest pain (1) Chest pain Chest pain type: other chest pain Qualified Code(s): R07.89 - Other chest pain
--- NOTE | 2025-03-05 11:52 | Electrocardiogram Report ---
Test Reason : Blood Pressure : */* mmHG Vent. Rate : 108 BPM Atrial Rate : 108 BPM P-R Int : 150 ms QRS Dur : 100 ms QT Int : 364 ms P-R-T Axes : 59 -29 52 degrees QTcB Int : 487 ms Sinus tachycardia Inferior infarct (cited on or before 24-Jan-2025) Abnormal ECG When compared with ECG of 13-Feb-2025 09:46, (unconfirmed) T wave inversion no longer evident in Inferior leads Nonspecific T wave abnormality, improved in Lateral leads Confirmed by Minesh Verde ([id number]) on 03/05/2025 11:51:36 AM Referred By: REFERRED SELF Confirmed By: Minesh Verde
--- NOTE | 2025-03-05 12:58 | XRay Report ---
Exam(s): XR CXR 1 VIEW EXAM: XR Chest, 1 View CLINICAL HISTORY: Reason for exam: Chest pain, nonspecific. TECHNIQUE: Frontal view of the chest. COMPARISON: 01/24/2025 FINDINGS: Lungs: No consolidation. Pleural space: No significant pleural effusion. No pneumothorax. Heart: Stable cardiomegaly. Bones/joints: No acute fracture. No dislocation. Fusion hardware in the cervical spine. IMPRESSION: No evidence of acute cardiopulmonary disease. Electronically signed by: Verna Leroy M.D. 03/04/25 22:47 PM
[2025-03-05] MEDS: PERFLUTREN LIPID MICROSPHERE (DEFINITY) IV ONE (13:22)
--- NOTE | 2025-03-05 15:09 | XCELERA ---
[id number] \\[id number]
--- NOTE | 2025-03-05 17:38 | Progress Note ---
Date of Service March 05, 2025 Assessment & Plan (1) Unstable angina: (2) CAD (coronary artery disease): Coronary Disease-Associated Artery/Lesion type: [place] artery [place] vs. transplanted heart: [place] heart Associated angina: unspecified whether angina present Qualified Code(s): I25.10 - Atherosclerotic heart disease of [place] coronary artery without angina pectoris (3) Elevated troponin: (4) Hypokalemia: (5) Hypertensive urgency: Plan Patient is a 49-year-old male with a past medical history of CAD, HTN, HUGO, pre- DM who presented to the ED due to chest pain that began at rest and lasted for approximately 30 to 45 minutes and radiated to his left shoulder. He was found to have a troponin of 35.3 significantly elevated blood pressure (222/139). He is currently chest pain-free at time of admission. #Unstable angina/elevated troponin/CAD - CP resolved at time of admission. Initial troponin 35.3. EKG without ischemic changes. K+ 3.2, mag 1.9. -Hx PCI to LAD and second diagonal 2020. -Patient was admitted from 01/24 to 01/26 with unstable angina and NSTEMI, initial trop 100 which downtrended. After cardiac cath, they opted for medical management of severe CAD and increased his metoprolol 100 mg daily to 150 mg daily. 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 Alcantara, started on Ranexa 500 mg BID 01/29 and amlodipine 2.5 mg daily 02/13. There was discussion about if patient has persistent chest pain could consider increasing Ranexa to 1000 mg twice daily or consider adding long-acting nitrate such as isosorbide however patient with poor tolerance to Nitro-Bid during recent admission (hypotension and headache). Will continue metoprolol succinate 150 mg QAM and add addition of metoprolol succinate 50 mg HS PO 03/04 - consult cardiology - appreciate cardiology input - echo was done and no wall motion abnormality noted - at this point, medical management is likely the best course #hypertensive urgency/HTN BP as high as 222/139 in the ED, did miss evening medications. Significantly hypertensive during recent admission as well. evening medications ordered in ED Nitro glycerin as above IV Lopressor 5 mg x 1 on admission; will continue q4hr prn Addition of metoprolol succinate 50 mg p.o. HS 03/04 continue home Vasotec, metoprolol, amlodipine (started 02/13) - with persistent hypokalemia and HTN - will check renin and aldosterone levels - renal aa US ordered #Severe HUGO intolerant of home CPAP. Qualified for nocturnal oxygen during recent admission. 2L NC at bedtime ordered Should follow-up with sleep medicine in outpatient setting, likely contributing to hypertension #Pre-DM most recent A1c 5.9% Follow-up with PCP in outpatient setting VTE ppx: SCDs, low risk Dispo: PCU Admission and Anticipated Discharge Date Admission Date: March 04, 2025 Subjective Patient came in with chest pain which has now improved. Denies SOB no n/v/d; no f/c. Review of Systems Review of Systems: Constitutional: No Weight Change, No Fever, No Chills, No Night Sweats, No Fatigue, No Malaise ENT/Mouth: No Hearing Changes, No Ear Pain, No Nasal Congestion, No Sinus Pa in, No Hoarseness, No sore throat, No Rhinorrhea, No Swallowing Difficulty Eyes: No Eye Pain, No Swelling, No Redness, No Foreign Body, No Discharge, No Vision Changes Cardiovascular: No Chest Pain, No SOB, No PND, No Dyspnea on Exertion, No Orthopnea, No Claudication, No Edema, No Palpitations Respiratory: No Cough, No Sputum, No Wheezing, No Smoke Exposure, No Dyspnea Gastrointestinal: No Nausea, No Vomiting, No Diarrhea, No Constipation, No Pain, No Heartburn, No Anorexia, No Dysphagia, No Hematochezia, No Melena, No Flatulence, No Jaundice Genitourinary: No Dysmenorrhea, No DUB, No Dyspareunia, No Dysuria, No Urinary Frequency, No Hematuria, No Urinary Incontinence, No Urgency, No Flank Pain, No Urinary Flow Changes, No Hesitancy Musculoskeletal: No Arthralgias, No Myalgias, No Joint Swelling, No Joint Stiffness, No Back Pain, No Neck Pain, No Injury History Skin: No Skin Lesions, No Pruritis, No Hair Changes, No Breast/Skin Changes, No Nipple Discharge Neuro: No Weakness, No Numbness, No Paresthesias, No Loss of Consciousness, No Syncope, No Dizziness, No Headache, No Coordination Changes, No Recent Falls Psych: No Anxiety/Panic, No Depression, No Insomnia, No Personality Changes, No Delusions, No Rumination, No SI/HI/AH/VH, No Social Issues, No Memory Changes, No Violence/Abuse Hx., No Eating Concerns Heme/Lymph: No Bruising, No Bleeding, No Transfusions History, No Lymphadenopathy Endocrine: No Polyuria, No Polydipsia, No Temperature Intolerance Physical Exam Physical Exam: VITALS: Reviewed. WEIGHT/BMI reviewed. GEN: Healthy appearing, well-developed, NAD. PSYCH: Good Judgment. AOx3. Normal memory, mood, and affect. HEENT -Head: NC/AT; -Eyes: PERRL, EOMI. No discharge or redn ess; -Ears: External ears are normal. Normal TMs. -Nose: Normal nares. -Mouth and throat: MMM. Normal gums, muc hugo, palate,. Good dentition. NECK: Supple, with no masses. CV: RRR, no m/r/g. LUNGS: CTAB, no w/r/c. ABD: Soft, NT/ND, NBS, no masses or organomegaly. : N/A SKIN: Warm, well perfused. No skin rashes or abnormal lesions. MSK: No deformities, Normal gait. EXT: No clubbing, cyanosis, or edema. NEURO: Ambulating with no limitations. Normal muscle strength and tone. No focal deficits. Results & Data Vital Signs (Past 12 Hours) Vital Signs Temp Pulse Resp BP Pulse Ox O2 Del Method 03/05/25 15:15 36.7 C 68 20 110/60 97 Room Air 03/05/25 11:42 36.4 C L 77 20 139/84 93 Room Air 03/05/25 11:25 Room Air 03/05/25 08:03 36.4 C L 82 22 146/83 H 93 Room Air Laboratory Results Laboratory Results WBC 6.60 K/ul (4.8-10.8) 03/05/25 04:55 RBC 4.22 M/uL (4.70-6.10) L 03/05/25 04:55 Hgb 12.3 g/dl (14.0-18.0) L 03/05/25 04:55 Hct 37.4 % (42.0-52.0) L 03/05/25 04:55 MCV 88.6 fL (80.0-100.0) 03/05/25 04:55 MCH 29.1 pg (25.0-34.0) 03/05/25 04:55 MCHC 32.9 g/dL (32.0-36.0) 03/05/25 04:55 RDW Std Deviation 44.4 fL (36.4-46.3) 03/05/25 04:55 RDW Coeff of Iain 13.6 % (11.5-14.5) 03/05/25 04:55 Plt Count 207 K/uL (130-400) 03/05/25 04:55 MPV 9.7 fL (9.4-12.4) 03/05/25 04:55 Immature Gran % (Auto) 0.1 % 03/04/25 20:37 Neut % (Auto) 55.6 % 03/04/25 20:37 Lymph % (Auto) 33.4 % 03/04/25 20:37 [place] % (Auto) 8.8 % 03/04/25 20:37 Eos % (Auto) 1.6 % 03/04/25 20:37 Baso % (Auto) 0.5 % 03/04/25 20:37 Neut # (Auto) 4.76 K/uL (1.40-6.50) 03/04/25 20:37 Lymph # (Auto) 2.86 K/uL (1.20-3.40) 03/04/25 20:37 [place] # (Auto) 0.75 K/uL (0.11-0.59) H 03/04/25 20:37 Eos # (Auto) 0.14 K/uL (0.00-0.50) 03/04/25 20:37 Baso # (Auto) 0.04 K/uL (0.00-0.20) 03/04/25 20:37 Immature Gran # (Auto) 0.01 K/uL (0.01-0.20) 03/04/25 20:37 Sodium 137 mmol/L (136-145) 03/05/25 04:55 Potassium 3.8 mmol/L (3.5-5.1) 03/05/25 04:55 Chloride 103 mmol/L (98-107) 03/05/25 04:55 Carbon Dioxide 27 mmol/L (21-32) 03/05/25 04:55 Anion Gap 7 (3-11) 03/05/25 04:55 BUN 24 mg/dl (6-23) H 03/05/25 04:55 Creatinine 1.01 mg/dl (0.6-1.4) 03/05/25 04:55 Est Cr Clr Drug Dosing 131.2 ml/min 03/05/25 04:55 eGFR 90.04 03/05/25 04:55 BUN/Creatinine Ratio 23.8 (10-20) H 03/05/25 04:55 Glucose 119 mg/dl (70-99(Fasting)) H 03/05/25 04:55 Calcium 8.9 mg/dl (8.6-10.3) 03/05/25 04:55 Magnesium 2.1 mg/dl (1.7-2.4) 03/05/25 04:55 Total Bilirubin 0.5 mg/dl (0.2-1.0) 03/04/25 20:37 AST 20 U/L (13-39) 03/04/25 20:37 ALT 30 U/L (7-52) 03/04/25 20:37 Alkaline Phosphatase 99 U/L (34-104) 03/04/25 20:37 Troponin I High Sens 33.4 pg/ml (0-20) H D 03/05/25 16:11 Total Protein 7.4 gm/dl (6.0-8.3) 03/04/25 20:37 Albumin 4.2 gm/dl (3.4-5.0) 03/04/25 20:37 Globulin 3.2 gm/dl (2.5-4.0) 03/04/25 20:37 Albumin/Globulin Ratio 1.3 (0.9-2) 03/04/25 20:37 Lipase 27 U/L (11-82) 03/04/25 20:37 TSH 1.468 uIu/ml (0.300-4.500) 03/04/25 22:42 Impressions Chest X-Ray 03/04/25 20:31 Exam(s): XR CXR 1 VIEW EXAM: XR Chest, 1 View CLINICAL HISTORY: Reason for exam: Chest pain, nonspecific. TECHNIQUE: Frontal view of the chest. COMPARISON: 01/24/2025 FINDINGS: Lungs: No consolidation. Pleural space: No significant pleural effusion. No pneumothorax. Heart: Stable cardiomegaly. Bones/joints: No acute fracture. No dislocation. Fusion hardware in the cervical spine. IMPRESSION: No evidence of acute cardiopulmonary disease. Electronically signed by: Verna Leroy M.D. 03/04/25 22:47 PM Renal Artery Duplex 03/05/25 00:00 EXAM: US duplex renal art/vein BI CLINICAL HISTORY: persistent HTN, assess for stenosis. TECHNIQUE: Bilateral renal arterial duplex was performed. Limited examination due to body habitus. One or more of the following were performed- spectral analysis, resistive index, waveform analysis, and pulsed doppler. COMPARISON: 01/23/2018 US reviewed. FINDINGS: Kidneys: The right kidney measures 14 cm and is normal in size. The left kidney measures 15 cm and is normal in size. There is no evidence of stones, cysts, or hydronephrosis bilaterally. The bilateral cortex and pelvis are normal in size. No other significant pathology is seen. The perinephric fat, fluid, and adrenal glands appear unremarkable. Aorta: The mid aorta diameter is within normal limits. The peak systolic velocity (PSV) of the proximal aorta is 75 cm/sec, which is within normal limits. There are no atherosclerotic changes throughout the visualized abdominal aorta. Renal Arteries: Parameter Right Renal Artery (RRA) Left Renal Artery (LRA) Proximal PSV/EDV (cm/sec) 134/42 68/19 Mid PSV/EDV (cm/sec) 60/19 123/36 Distal PSV/EDV (cm/sec) 69/17 76/28 Arcuate artery RI: 0.54 RI: 0.61 Renal Artery/Aorta Ratio (RAR) 1.8 1.6 Reference data: 60% stenosis, RAR 3.1:1, renal artery PSV 180 cm/s The renal artery/aorta ratio is within normal limits bilaterally. There is no detectable renal artery stenosis bilaterally. The renal veins are seen patent bilaterally. IMPRESSION: 1. There is no evidence of renal artery occlusive disease in either renal artery. 2. Kidney size is normal. 3. No significant interval changes. Electronically signed by Santosh Jalloh 03-05-2025 03:48 AM PG Care Time/CCT Total # of Minutes Spent Total Time Spent with Patient: Total time spent is greater than 50% in coordination of care (as documented) at patient's floor/unit and/or counseling patient: Coding Level of Care Code 27778 SUB INP/OBS CARE 2/35MIN Diagnoses Unstable angina I20.0 Coronary artery disease involving [place] coronary artery of [place] heart without angina pectoris I25.10 Coronary Disease-Associated Artery/Lesion type: [place] artery [place] vs. transplanted heart: [place] heart Associated angina: unspecified whether angina present Elevated troponin R79.89 Hypokalemia E87.6 Hypertensive urgency I16.0
[2025-03-05] MEDS: ROSUVASTATIN CALCIUM 20 MG TAB PO SCH (21:50)
[2025-03-05 23:13] VITALS: RESP 18
--- NOTE | 2025-03-06 07:53 | Discharge Summary ---
Discharge Summary Date of Service March 06, 2025 Principal Dx & Hospital Course #1 = Principal Diagnosis (1) Unstable angina: (2) CAD (coronary artery disease): (3) Elevated troponin: (4) Hypokalemia: (5) Hypertensive urgency: Plan This is a 49 year old male with a PMH of HTN, CAD, prediabetes; has a hx of coronary stents; has had chest pain for the past few months intermittently; recently admitted (01/24/25-01/26/25); at that time had an NSTEMI with an elevated troponin; had a cardiac cath and showed patent coronary stents from 2019; another stent was attempted, but difficult to place so it was decided on medical management. As an outpatient, patient had been started on Ranexa; dose of Toprol XL was increased from 100mg to 150mg, amlodipine was also added. He had ongoing chest pain and so came in for further eval. in the ER, had a mild elevation in troponin, though was trending down. a limited echo was performed by cardiology; no wall motion abnormality and normal LVEF noted. Patient's blood pressure on arrival was noted to be >200/130; and his trop elevation was likely secondary to the hypertensive emergency. Amlodipine dose increased to 5mg; an additional Toprol XL dose of 50mg for the evening was started. Chest pain resolved soon after admission and chest pain free at the time of discharge. At time of discharge, renin/aldosterone labs pending. Patient to follow-up with cardiology as an outpatient; likely to start PCSK9 as an outpatient. Notes For Next Care Provider Medication Changes From Visit Amlodipine increased from 2.5mg daily to 5mg daily Admission HPI Per Admitting Provider Patient is a 49-year-old male with a past medical history of CAD, HTN, HUGO, pre- DM who presented to the ED due to chest pain that began at rest and lasted for approximately 30 to 45 minutes and radiated to his left shoulder. He was found to have a troponin of 35.3 significantly elevated blood pressure (222/139). He is currently chest pain-free at time of admission. Patient seen at bedside with his present. He stated at 7 PM this evening he was at rest and developed left-sided chest pain which radiated to his left shoulder and lasted 30 to 45 minutes. He denies any associated dyspnea, nausea, diaphoresis. He did not do anything to relieve his pain, it went away on its own prior to arrival. Patient stated he always has exertional chest pain however this feels different as it is more severe and radiates to his left shoulder. This does feel similar to his previous episode of chest pain that brought him into the ED 01/24 resulting in admission for NSTEMI with cardiac cath 01/25. He stated during his previous admission he waited a couple days before coming into the ER. Patient denies fever, chills, headache, dizziness, lightheadedness, rhinorrhea, sore throat, cough, dyspnea, abdominal pain, nausea, vomiting, diarrhea. He stated he is currently chest pain-free at time of admission. He denies any nicotine or alcohol use. He was due for his evening medications of Vasotec and Ranexa which were ordered by the ED. He wishes to maintain his full CODE STATUS. Previous medical records reviewed: - Patient was admitted from 01/24 to 01/26 with unstable angina and NSTEMI with initial troponin 100 which downtrended. He was started on a heparin drip. Echocardiogram 01/24 revealed EF 55 to 60%, moderate LVH, no wall motion abnormality. Initial EKG was without ischemic changes however patient then developed inferior and anterior lateral T wave inversions 01/25 so he underwent a cardiac catheterization which showed patent stents in mid LAD and second LAD (placed in 2019), with peripheral narrowing and mid RPDA occlusion; there was an attempt made for PCI of the PDA which was unsuccessful. They opted for medical management of severe CAD and increased his metoprolol 100 mg daily to 150 mg daily. - After discharge patient followed up with his outpatient nursing instructor, Dr. Alcantraa, who started him on Ranexa 500 mg twice daily 01/29 and amlodipine 2.5 mg daily 02/13. There was discussion about if patient has persistent chest pain could consider increasing Ranexa to 1000 mg twice daily or consider adding long- acting nitrate such as isosorbide however patient with poor tolerance to Nitro- Bid during recent admission (hypotension and headache). Discharge Exam VITALS: Reviewed. WEIGHT/BMI reviewed. GEN: Healthy appearing, well-developed, NAD. PSYCH: Good Judgment. AOx3. Normal memory, mood, and affect. HEENT -Head: NC/AT; -Eyes: PERRL, EOMI. No discharge or redness; -Ears: External ears are normal. Normal TMs. -Nose: Normal nares. -Mouth and throat: MMM. Normal gums, mucosa, palate,. Good dentition. NECK: Supple, with no masses. CV: RRR, no m/r/g. LUNGS: CTAB, no w/r/c. ABD: Soft, NT/ND, NBS, no masses or organomegaly. : N/A SKIN: Warm, well perfused. No skin rashes or abnormal lesions. MSK: No deformities, Normal gait. EXT: No clubbing, cyanosis, or edema. NEURO: Ambulating with no limitations. Normal muscle strength and tone. No focal deficits. Discharge Plan Discharge Items Patient Disposition: Home - Self-Care Reason For Visit: UNSTABLE ANGINA, ELEVATED TROP, CHEST PAIN, HTN UR Discharge Diagnosis: Hypertension Urgency CAD Condition on Discharge: Good Goals: Improve blood pressure Start PCSK9 as an outpatient Activity: Resume your previous activity Non-emergency contact: Primary Care Provider and Vice President Of Engineering Call non-emergency contact if: you have any medication questions, your symptoms worsen, your pain is not controlled, your pain is worsening, your pain is unusual for you and your pain is concerning for you Follow-up/Referrals: Vitaliy Hoffman MD [Primary Care Provider] - 03/13/25 10:30 am (Hospital follow up scheduled for March 13, 2025 at 10:30am) Diet: Heart Healthy Addtl Attending Provider Instructions: Follow-up with Vitaliy Hoffman MD in 5-7 days Pending Studies at Discharge: Yes Studies:: labs (renin, aldosterone) pending Stand-Alone Forms: My [facility] [employer], Smoking Cessation Medications and DC Order Prescriptions: New amlodipine 5 mg tablet 5 mg PO DAILY Qty: 30 2RF metoprolol succinate 50 mg Tablet Extended Release 24 Hr 150 mg PO QAM Qty: 30 0RF metoprolol succinate 50 mg Tablet Extended Release 24 Hr 50 mg PO HS Qty: 30 0RF Continued enalapril maleate 20 mg tablet 20 mg PO BID Qty: 180 1RF (DME) Oxygen Home Liters Per Minute See Rx Instructions .Route Rx Instructions: As directed 2L via NC HS rosuvastatin 40 mg tablet 40 mg PO HS Qty: 90 3RF nitroglycerin 0.4 mg tablet, sublingual 0.4 mg sublingual Q5M PRN (Reason: chest pain) Qty: 25 0RF Rx Instructions: until response; do not exceed 3 doses per episode clopidogrel 75 mg tablet 75 mg PO QAM Qty: 90 3RF ranolazine 500 mg tablet extended release 12 hr 500 mg PO BID Qty: 180 3RF aspirin [Adult Low Dose Aspirin] 81 mg tablet,delayed release (DR/EC) 81 mg PO QAM Fish Oil 900-1,400 mg capsule,delayed release(DR/EC) 1 cap PO QAM Rx Instructions: [id number] Discontinued metoprolol succinate 100 mg tablet extended release 24 hr 150 mg PO QAM Qty: 45 0RF amlodipine 2.5 mg tablet 2.5 mg PO QAM Discharge Orders: Discharge Order (Routine); Ordered 03/06/25 Ordered By: Mason Foster/Other Patient Handouts: Hypertension Dc Admission Data Admit Date/Time: 03/04/25 22:24 Attending Provider: Mason Hurt Admit Provider: Rocael Black Primary Care Provider: Vitaliy Hoffman V. Other Providers: Rocael Black; Francisco Sanchez Hospital Stay Data Consultations 03/04/25 21:24 ED Decision to Admit Stat 03/04/25 23:41 Consult Cardiology Routine Diagnostic Imagining Performed 03/05/25 US duplex renal art/vein BI Stat Pending Results Patient Have Any Pending Studies at Discharge: Yes Discharge Instructions Given to Patient (Per Discharging Provider) Follow-up with Vitaliy Hoffman MD in 5-7 days Home Health Attestation I certify that this patient is under my care and that I, or a physicians emergency medicine physician assistant working with me, had a face to-face encounter that meets the home health [id number] encounter requirements with this patient. The encounter with the patient was in whole, or in part, for the following medical condition, which is the primary reason for home health care (list medical condition): I certify that, based on my findings, the following services are medically necessary home health services: My clinical findings support the need for the above services because: Further, I certify that my clinical findings support that this patient is homebound (i.e. absences from home require considerable and taxing effort and are for medical reasons or yazdanism services or infrequently or of short du ration when for other reasons) because: Certification for Home Health Services: Based on the above findings, I certify that this patient is confined to the home and needs intermittent fpc care, physical therapy and/or speech therapy or continues to need occupational therapy. The patient is under my care, and I have initiated the establishment of the plan of care. This patient will be followed by a physician who will periodically review the plan of care. Total Time Total Time Spent Total Time Spent (In Minutes): 40 minutes Coding Level of Care Code 82286 INP/OBS DISCH >30 MIN Diagnoses Unstable angina I20.0 Coronary artery disease involving [place] coronary artery of [place] heart without angina pectoris I25.10 Coronary Disease-Associated Artery/Lesion type: [place] artery [place] vs. transplanted heart: [place] heart Associated angina: unspecified whether angina present Elevated troponin R79.89 Hypokalemia E87.6 Hypertensive urgency I16.0 Time Spent (min) 40
[2025-03-06 11:09] VITALS: BP 111/63; PULSE 69; TEMP 97.9; O2SAT 96
== END 2025-03-06 11:12 | disposition home or self-care (01) | DRG 305 ==
LOC: ED 20:20 → SUATTDRO 22:24 → 2S 22:24